=== PATIENT | male | born 1980 | race Caucasian/White ===

== ENCOUNTER 2025-01-07 10:15 | Inpatient (IN) | payer OTHER, SELFPAY ==
[2025-01-07] VITALS (7 sets, daily range): BP systolic 113–154; BP diastolic 59–94; PULSE 73–111; RESP 13–17; TEMP 36.2–36.8; O2SAT 95–99; BMI 30.6; BMI 31.4
--- NOTE | ~2025-01-07 | XR_ITS ---
EXAMINATION: XR HAND, RIGHT CLINICAL INFORMATION: r/o foreign body thumb COMPARISON: None available. TECHNIQUE: PA, lateral, and oblique views of the right hand. FINDINGS: The bones and soft tissues are normal. No fracture. Alignment is anatomic. Joint spaces are maintained. No erosions or soft tissue calcifications. XR/XR hand RT min 3V IMPRESSION: Normal right hand. No radiopaque foreign body identified. Electronically signed by: Martin Bauer MD 01/07/2025 02:07 PM EDT
--- NOTE | 2025-01-07 11:11 | PC.NURSE ---
Report received from SARAY Vasquez. Taken over care at this time.
--- NOTE | 2025-01-07 12:19 | ED.GENADULT ---
HPI - General Adult General Chief complaint: Wound/Laceration Stated complaint: SEC 21/[place],ABN LABS,SEEN T-1 PER EMS Time Seen by Provider: 01/07/25 11:12 Source: patient and EMS Mode of arrival: EMS Limitations: no limitations History of Present Illness ED Provider: Dr. Sondra Crane HPI narrative: Patient comes to the emergency room via ambulance on a Section 21 from [facility] (being treated for alcohol and cocaine dependence, seeking detox, drinks 3 pt daily, no history of withdrawal seizures or DTs) According to the patient, couple of days ago he noted that he had an infection in his right thumb. Patient denies any known injuries. Patient states that he was seen yesterday in a different ER, given IV antibiotics and sent home with clindamycin. Patient states that his thumb keeps getting more red swollen and painful. Note, patient is [facility] being treated for alcohol and cocaine dependence seeking detox. Related Data Allergies Allergy/AdvReac Type Severity Reaction Status Date / Time No Known Allergies Allergy Verified 01/07/25 10:37 Review of Systems Review of Systems: Constitutional : No Weight loss, No Fever, No Chills, No Night Sweats, No Fatigue, No Malaise ENT/Mouth : No Hearing loss, No Ear Pain, No Nasal Congestion, No Sinus Pain, No Hoarseness, No sore throat, No Rhinorrhea, No Swallowing Difficulty Eyes: No Eye Pain, No Swelling, No Redness, No Foreign Body, No Discharge, No Vision Changes Cardiovascular : No Chest Pain, No SOB, No Dyspnea on Exertion, No Orthopnea, No Edema, No Palpitations Respiratory : No Cough, No Sputum, No Wheezing, No Smoke Exposure, No Dyspnea Gastrointestinal : No Nausea, No Vomiting, No Diarrhea, No Constipation, No abdominal Pain, No Hematochezia, No Melena Genitourinary : no irregular bleeding, No Dysuria, No Urinary Frequency, No Hematuria, No Urinary Incontinence, No Urgency, No Flank Pain, No Urinary Flow Changes, No Hesitancy Musculoskeletal : No joint pain, No Myalgias, No Joint Swelling Skin : Complaining of worsening redness pain and swelling of the right thumb Neuro : No Weakness, No Numbness, No Paresthesias, No Loss of Consciousness, No Dizziness, No Headache Psych : No Anxiety/Panic, No Depression, No SI/HI/AH/VH, No Social Issues, Heme/Lymph: No Bruising, No Bleeding,No Lymphadenopathy Endocrine : No Polyuria, No Polydipsia, No Temperature Intolerance [facility] Past Medical History Medical History (Updated 01/07/25 @ 13:41 by Sondra Crane MD) Cocaine abuse Alcohol dependence Social History Social History Unable to assess alcohol history related to: Refusing to respond Smoked in Last 30 Days: No Use of substances other than those prescribed or required for medical reasons: Refusing to respond Advance Directives: No Advance Directives Information Provided: Yes Do you have a plan to hurt others: No Plan Physical Exam ED Vital Signs: Vital Signs - 24 hr 01/07/25 10:35 01/07/25 13:16 Temperature 98.2 F 97.9 F Pulse Rate 106 H 93 Respiratory Rate 16 14 Blood Pressure 119/76 150/91 H Pulse Oximetry 97 97 Oxygen Delivery Method Room Air Room Air BMI result Body Mass Index 30.6 Const Other: Appearance: Alert. Oriented X3. No acute distress. Eyes: Pupils equal, round and reactive to light. ENT: Pharynx normal. Neck: Normal inspection. Neck supple. No lymph nodes noted. No crepitus CVS: Normal heart rate and rhythm. Pulses normal. Normal S1 and S2 Respiratory: No respiratory distress. Breath sounds normal. No Wheezing. No rales Abdomen: Soft and nontender. No rigidity. No distention. Skin: Skin warm and dry. Normal skin color. Normal skin turgor. See extremities below Extremities: No lower extremity edema. No Lacerations. No Rash. On the right thumb, patient has swelling, erythema, seems to have small pus collections. Patient states that he is unable to flex the thumb due to pain, Seems like a blood blister on the palmar aspect of the thumb. Very tender to touch, see pictures below Neuro: Oriented X 3. No motor deficit. No sensory deficit. Moving all extremities. No slurred speech. CN 2 through 12 grossly intact Psych: calm, cooperative, normal affect Course Course Course Narrative: Patient being empirically started on vancomycin and Zosyn and IV fluids. All of patient's labs pending Medications Administered Generic Name Dose Route Start Last Admin Trade Name Freq PRN Reason Stop Dose Admin Vancomycin HCl 2,000 mg in 500 mls @ 250 mls/hr 01/07/25 12:15 01/07/25 13:05 Vancomycin/Ns IV 01/07/25 14:14 250 mls/hr ONCE ONE Administration Discontinued Medications Generic Name Dose Route Start Last Admin Trade Name Huang PRN Reason Stop Dose Admin Piperacillin Sod/Tazobactam 50 mls @ 100 mls/hr 01/07/25 12:15 01/07/25 13:10 Sod 3.375 gm/ Sodium Chloride IV 01/07/25 12:44 Infused ONCE ONE Infusion Sodium Chloride 1,000 mls @ 999 mls/hr 01/07/25 12:16 01/07/25 12:41 Ns IVCONT 01/07/25 13:16 999 mls/hr .Q1H1M ONE Administration Medical Decision Making Medical Decision Making [facility] Narrative: My interpretation of labs: Patient's white blood cell count 11.7, chemistry within normal limits, normal LFTs, lactic acid 0.8 Patient does not have any fever, no episodes of hypotension, normal lactic acid. Sepsis not suspected Patient know the received IV antibiotics and fluids. I discussed the patient with NISA Moya from orthopedics Differential Diagnosis Differential Diagnoses: The differential diagnosis associated with the presentation includes (Paronychia, cellulitis, tenosynovitis) Lab Data [facility] Lab Attestation statement: I reviewed the patient's lab results. 01/07/25 12:38 01/07/25 12:39 Labs: Lab Results 01/07/25 01/07/25 Range/Units 12:38 12:39 WBC 11.7 H (4.8-10.8) X10*3/uL RBC 4.79 (4.60-5.80) X10*6/uL Hgb 14.8 (14.0-18.0) g/dl Hct 41.7 L (42.0-52.0) % MCV 87.1 (80.0-98.0) fL MCH 30.9 (27.0-33.0) pg MCHC 35.5 (31.0-36.0) g/dl RDW 12.0 (11.0-16.0) % Plt Count 221 (160-400) X10*3/uL MPV 9.7 (9.4-12.4) fL Immature Gran % (Auto) 0.3 (0.0-0.4) % Neut % (Auto) 72.4 (45-73) % Lymph % (Auto) 16.4 L (20-40) % [place] % (Auto) 10.7 (2-11) % Eos % (Auto) 0.1 (0-4) % Baso % (Auto) 0.1 (0-2) % Lymph # (Auto) 1.9 (1.2-4.9) X10*3/uL [place] # (Auto) 1.3 H (0.1-1.2) X10*3/uL Eos # (Auto) 0.0 (0.0-0.4) X10*3/uL Baso # (Auto) 0.0 (0.0-0.2) X10*3/uL Abs Immat Gran (auto) 0.03 (0.00-0.03) X10*3/uL Absolute Neuts (auto) 8.5 H (2.0-8.3) x10*3/uL Absolute Nucleated RBC 0.000 (0.0-0.012) X10*3/uL Nucleated RBC % (auto) 0.0 (0.0-0.2) /100WBC PT 11.7 (10.9-12.4) SEC INR 1.0 (0.9-1.1) APTT 26.1 (26.0-36.8) SEC Sodium 134 L (135-145) mmol/L Potassium 4.1 (3.3-5.1) mmol/L Chloride 101 (96-108) mmol/L Carbon Dioxide 22 (22-29) mmol/L Anion Gap 15 (12-20) BUN 17 H (9-16) mg/dL Creatinine 1.07 (0.5-1.4) mg/dL Estim Creat Clear Calc 94.5 Estimated GFR > 60 Random Glucose 113 (60-115) mg/dL Lactic Acid 0.8 (0.5-2.0) mmol/L Calcium 9.4 (8.4-10.2) mg/dL Total Bilirubin 0.6 (0.0-1.0) mg/dL Direct Bilirubin 0.2 (0.0-0.5) mg/dL AST 32 (5-37) U/L ALT 45 H (0-40) U/L Alkaline Phosphatase 78 (39-117) U/L Total Protein 7.3 (6.5-8.0) g/dL Albumin 4.3 (3.5-5.0) g/dL Critical Care Time Critical Care Time Critical Care Time: Yes Total Critical Care Time: 60 Attestation: I have personally provided critical care time. Time includes review of lab data, radiology results, discussion with consultants, and monitoring for potential decompensation. Intervention performed as documented. Discharge Plan Discharge Clinical Impression: Cellulitis and abscess of hand Patient Disposition: Admitted As Inpatient Print Language: Korean
[2025-01-07] MEDS: Piperacillin Sodium/Tazobactam 3.375 GM in 0.9 % Sodium Chloride 50 ML IV (12:41)
[2025-01-07] MEDS: 0.9 % Sodium Chloride 1,000 ML 999 ML IVCONT (12:41)
[2025-01-07 12:45] LABS: MANUAL DIFF FLAG NO
[2025-01-07 12:48] LABS: Basophils Percent Auto 0.1 % (0-2); Eosinophils Percent Auto 0.1 % (0-4); Hematocrit 41.7 % (42.0-52.0); Hemoglobin 14.8 g/dl (14.0-18.0); Imm Gran Abs Auto 0.03 X10*3/uL (0.00-0.03); Imm Gran Pct Auto 0.3 % (0.0-0.4); Lymphocytes Absolute Auto 1.9 X10*3/uL (1.2-4.9); Lymphocytes Percent Auto 16.4 % (20-40); Mean Corpuscular HGB Conc 35.5 g/dl (31.0-36.0); Mean Corpuscular Hemoglobin 30.9 pg (27.0-33.0); Mean Corpuscular Volume 87.1 fL (80.0-98.0); Mean Platelet Volume 9.7 fL (9.4-12.4); Monocytes Absolute Auto 1.3 X10*3/uL (0.1-1.2); Monocytes Percent Auto 10.7 % (2-11); Neutrophils Absolute Auto 8.5 x10*3/uL (2.0-8.3); Neutrophils Percent Auto 72.4 % (45-73); Platelet Count 221 X10*3/uL (160-400); Red Blood Count 4.79 X10*6/uL (4.60-5.80); White Blood Count 11.7 X10*3/uL (4.8-10.8)
[2025-01-07 12:52] LABS: Prothrombin Time 11.7 SEC (10.9-12.4)
[2025-01-07 12:55] LABS: Partial Thromboplastin Time 26.1 SEC (26.0-36.8)
--- NOTE | 2025-01-07 13:01 | PC.NURSE ---
Informed MD about pt. requesting pain medication. No new orders at this time.
[2025-01-07 13:05] LABS: Lactic Acid 0.8 mmol/L (0.5-2.0)
[2025-01-07] MEDS: vancomycin/NS 2,000 MG/500 ML PLAST..BAG 250 MG IV (13:05)
[2025-01-07 13:06] LABS: Alanine Aminotransferase 45 U/L (0-40); Albumin Level 4.3 g/dL (3.5-5.0); Alkaline Phosphatase 78 U/L (39-117); Anion Gap 15 (12-20); Aspartate Amino Transferase 32 U/L (5-37); Bilirubin Direct 0.2 mg/dL (0.0-0.5); Bilirubin Total 0.6 mg/dL (0.0-1.0); Blood Urea Nitrogen 17 mg/dL (9-16); Calcium 9.4 mg/dL (8.4-10.2); Carbon Dioxide 22 mmol/L (22-29); Chloride 101 mmol/L (96-108); Creatinine Clr Calc Pharmacy 94.5; Estimated Glomerular Filt Rate > 60; Glucose Random 113 mg/dL (60-115); Potassium 4.1 mmol/L (3.3-5.1); Sodium 134 mmol/L (135-145); Total Protein 7.3 g/dL (6.5-8.0)
--- NOTE | 2025-01-07 13:21 | PM.CNOR ---
History of Present Illness HPI Consult date: 01/07/25 Chief complaint: SEC 21/[place],ABN LABS,SEEN T-1 PER EMS Narrative: Mr. Molina is a 44-year-old right-hand dominant male who presents to the office today for evaluation of a right thumb infection. She was transported on a section 21 from [facility]. He reports that the infection began to develop over the past 2 days. He does admit to smoking crack cocaine last on Sunday. He is at [facility] for alcohol and cocaine dependence seeking detox. He reports that he was seen yesterday by different ER and given IV antibiotics and sent home with clindamycin but reports that the pain has been increasing and also has noticed an increase in redness. Review of Systems Review of Systems: Yes all other systems are reviewed and are negative [facility] Past Medical History Medical History (Updated 01/07/25 @ 13:41 by Sondra Crane MD) Cocaine abuse Alcohol dependence Social History Social History Unable to assess alcohol history related to: Refusing to respond Smoked in Last 30 Days: No Use of substances other than those prescribed or required for medical reasons: Refusing to respond Advance Directives: No Advance Directives Information Provided: Yes Do you have a plan to hurt others: No Plan Meds Allergies Allergy/AdvReac Type Severity Reaction Status Date / Time No Known Allergies Allergy Verified 01/07/25 10:37 Active Medications: Current Medications Vancomycin HCl (Vancomycin/Ns) 2,000 mg in 500 mls @ 250 mls/hr IV ONCE ONE Stop: 01/07/25 14:14 Last Admin: 01/07/25 13:05 Dose: 250 mls/hr Physical Exam Vital Signs: Vital Signs: Last Vital Signs Temp 97.9 F 01/07/25 13:16 Pulse 93 01/07/25 13:16 Resp 14 01/07/25 13:16 BP 150/91 H 01/07/25 13:16 Pulse Ox 97 01/07/25 13:16 O2 Del Method Room Air 01/07/25 13:16 BMI result Body Mass Index 30.6 Const: General: cooperative, healthy appearing and no acute distress Resp: Effort & Inspection: normal respiratory effort and able to speak in complete sentences Extrem: Other: Right thumb phelon. Able to flex and extend at the IP joint. Tenderness to palpation over the areas of abscess. No evidence of flexor tenosynovitis. NVI. Results Labs 01/07/25 12:38 01/07/25 12:39 Labs: Abnormal lab results 01/07/25 01/07/25 Range/Units 12:38 12:39 WBC 11.7 H (4.8-10.8) X10*3/uL Hct 41.7 L (42.0-52.0) % Lymph % (Auto) 16.4 L (20-40) % [place] # (Auto) 1.3 H (0.1-1.2) X10*3/uL Absolute Neuts (auto) 8.5 H (2.0-8.3) x10*3/uL Sodium 134 L (135-145) mmol/L BUN 17 H (9-16) mg/dL ALT 45 H (0-40) U/L H & H 01/07/25 Range/Units 12:38 Hgb 14.8 (14.0-18.0) g/dl Hct 41.7 L (42.0-52.0) % Coagulation 01/07/25 Range/Units 12:39 INR 1.0 (0.9-1.1) All other labs normal. Assessment and Plan (1) Cellulitis and abscess of hand: Status: Acute Plan I discussed the case with Dr. Vargas and explained the extent of the injury to the patient and options available which include surgical intervention. I explained the procedure in detail along with the length of recovery and rehab course. I explained the risk, benefits and alternatives. Risk including, but not limited to infection, blood clots, bleeding, non union or malunion and nerve/tissue damage to surrounding areas. I answered all their questions and with their understanding they have consented to move forward with irrigation and debridement of the right thumb. The patient will be NPO after midnight. Recommend warm salt water soaks of the right thumb. Procedures Date of Service Date of Service: 01/07/25
--- OUTSIDE RECORDS SUMMARY | 2025-01-07 13:55 | XMS_ITS | Encounter Summary ---
Author Organization [facility] Address [address] [place] [address] Care Team Providers Care [employer] Name Role Phone Kimberly Tovar CORBIN Primary Care Provider [phone] Reason for Visit * Reason Comments Medication Management Encounter Details Date Type Department Care Team ([facility] st Contact Info) Description 11/17/2019 / Visits [facility] [address] [place] [phone] Catina Steel APRN [address] [place] [address] Social History Tobacco Use Types Packs/Day Years Used Date Smoking Tobacco: Never Smokeless Tobacco: Never Alcohol Use Standard Drinks/Week Comments Yes 0 (1 standard drink = 0.6 oz pur e alcohol) socially Social Connections Answer Date Recorded Social Connections and Isolation 0 05/11/2019 Financial Resource Strain Answer Date R ecorded Financial Resource Strain 0 2018 Stress Answer Date Recorded Stress 0 05/11/2019 Physical Activity Answer Date Recorded Physical Activity 0 05/11/2019 Food Insecurity Answer Date Recorded Food 0 05/11/2019 Transportation Needs Answer Date Record ed Transportation 0 05/11/2019 Housing Stability Answer Date Recorded Housing 0 05/11/2019 Safety and Environment Answer Date Abdoul rded Safety 0 05/11/2019 Utilities Answer Date Recorded Utilities 0 05/11/2019 Employment Answer Date Recorded Employment 0 05/11/2019 Sex and Gender Information Value Date Recorded Sex Assigned at Male 09/23/2018 7:38 AM PST Legal Sex Male 8:29 AM PDT Gender Identity Male 09/23/2018 7:38 AM PST Sexual Orientation Straight 09/23/2018 7: 38 AM PST Occupation Industry Job Start Date Job End Date unemployed Not on file Not on file Not on file documented as of this encounter Plan of Treatment Not on file documented as of this encounter Visit Diagnoses Not on filedocumented in this encounter Additional Health Concerns Infection Onset Date Last Indicated Resolved Time COVID-19 (rule-out) Comment:Added automatically based on patient reported travel screening. 06/14/2020 06/14/202007/05 7:09 PM PDT Assessment Noted Time PHQ-9 Depression Total Score: 22 11/06/ 020 7:00 AM PST documented as of this encounter Care Teams [employer] Relationship Specialty Start Date End Date Kimberly Tovar FNP [facility] [place] [address] PCP - General Internal Medicine 05/25/20 documented as of this encounter
--- OUTSIDE RECORDS SUMMARY | 2025-01-07 13:55 | XMS_ITS | Clinical Summary ---
Author Organization [facility] Address [address] [place] [address] Care Team Providers Care Core Measures Abstractor Name Role Phone Kimberly Tovar [facility] Primary Care Provider [phone] Source Comments PLEASE NOTE, if this patient is a minor, it may be UNLAWFUL to discuss sensitive information that is contained in these records (such as FAMILY PLANNING, MENTAL HEALTH or SUBSTANCE ABUSE) with the minor patient's parent or other person without the patient's specific authorization.[facility] Allergies No known active allergies Medications sennosides (SENNA) 8.6 mg tablet TAKE 2 TABLETS BY MOUTH NIGHTLY AT BEDTIME NEEDED FOR CONSTIPATION Strength: 8.6 mg 60 Tablet 1 3 Active QUEtiapine (SEROQUEL) 300 mg tablet TAKE 1 TABLET BY MOUTH EVERYDAY AT BEDTIME 90 Tablet 1 3 Active Active Problems Problem Noted Date Diagnosed Date Cocaine abuse ([facility]) 09/28/2022 Cannabis abuse 09/28/2022 Prediabetes 11/22/2020 Hepatic steatosis 01/01/2020 Overview (01/01/2020): 12/17/2019 Liver US Bipolar 1 disorder ([facility]) 11/07/2019 Hepatitis C antibody test positive 11/07/2019 Moderate episode of recurren t major depressive disorder ([facility]) 07/12/2019 HISTORY OF SUICIDAL IDEATION 01/11/2019 Overview (01/20/2019): 01/08/19 [facility] Suicidal ideation --plan take all his medication: crisis called in [facility] ER suicidal--not meeting inpatient req--sent [place] respite Hyperglyceridemia 01/20/2016 PTSD (post-traumatic stress disorder) 01/20/2016 Anxiety and depression 01/20/2016 Overview (09/23/2018): Per Dr Bustos 03/16 --This is Dr. Bustos writing courtesy of [facility]. ? I reviewed the records. ?? Looks like patient reported that Wellbutrin XL 300 mg/d and Seroquel were helpful in the past, and Aleida Gordon just increased the Wellbutrin to that dose in the past week. ?? I suggest giving the increase 4-5 weeks to take effect. ?? If no improvement after that time, suggest augmenting Wellbutrin with an SSRI such as Citalopram or Lexapro. ?? Would continue Seroquel at current dose. 09/23/2018 Pt stated he stopped taking both Seroquel and Wellbutrin H/O cocaine abuse ([facility]) 01/20/2016 Immunizations Immunization Administration Dates Next Due PPD 09/23/2018 Family History Relation Name Status Comments Brother 1 brother Father Alive Mother Alive Sister 1 sister Social History Tobacco Use Types Packs/Day Years Used Date Smoking Tobacco: Never Smokeless Tobacco: Never Tobacco Cessation:Counseling Given: Not Answered Alcohol Use Standard Drinks/Week Comments Yes 0 (1 standard drink = 0.6 oz pur e alcohol) socially Social Connections Answer Date Recorded Connectedness 0 06/05/2024 Financial Resource Strain Answer Date R ecorded Financial Resource Strain 0 2018 Stress Answer Date Recorded Stress 0 05/11/2019 Physical Activity Answer Date Recorded Physical Activity 0 05/11/2019 Food Insecurity Answer Date Recorded Food 0 06/12/2024 Transportation Needs Answer Date Record ed Transportation 0 05/11/2019 Housing Stability Answer Date Recorded Housing 0 05/11/2019 Safety and Environment Answer Date Abdoul rded Safety 0 05/11/2019 Utilities Answer Date Recorded Utilities 0 05/11/2019 Employment Answer Date Recorded Stress 0 06/05/2024 Sex and Gender Information Value Date Recorded Sex Assigned at Male 09/23/2018 7:38 AM PST Legal Sex Male 8:29 AM PDT Gender Identity Male 09/23/2018 7:38 AM PST Sexual Orientation Straight 09/23/2018 7: 38 AM PST Occupation Industry Job Start Date Job End Date unemployed Not on file Not on file Not on file Last Filed Vital Signs Vital Sign Reading Time Taken Comments Blood Pressure 140/82 04/24/2023 2:19 PM EDT Pulse 114 04/24/2023 2:19 PM EDT Temperature 37.2 ??C (98.9 ??F) 04/24/2023 2:19 PM ED T Respiratory Rate 16 04/24/2023 2:19 PM EDT Oxygen Saturation 95% 04/24/2023 2:19 PM EDT Inhaled Oxygen Concentration - - Weight 102.5 kg (226 lb) 04/24/2023 2:19 PM EDT Height 172.7 cm (5' 8 ) 04/24/2023 2:19 PM EDT Body Mass Index 34.36 04/24/2023 2:19 PM EDT Plan of Treatment Health Maintenance Due Date Last Done Comments Anxiety Screening 1980 Tobacco Screening 1980 Depression Monitoring 07/25/2023 04/24/2023 , 12/19/2021, 11/15/2020, Additional history exists CT Colonography 11/22/2023 Colonoscopy 11/22/2023 Colorectal Cancer Screening 11/22/2023 FIT/gFOBT 11/22/2023 Fecal DNA 11/22/2023 Flexible Sigmoidoscopy 11/22/2023 Hypertension Screening (#1) 04/23/2024 Annual Preventive Care Visit 04/24/2024 04/24/2023, 11/15/2020 Diabetes Screening 04/24/2024 04/24/2023, 0 04/24/2023, 11/22/2020, Additional history exists Lipid Screening 04/24/2024 04/24/2023, 09/17, 11/10/2019, Additional history exists Syphilis Screening 04/24/2024 04/24/2023, 11/25/2020 [id number] ( season) 2024 023 Alcohol and Drug Screen 09/17/2024 04/24/20, 12/19/2021, 11/15/2020, Additional history exists Imm-DTaP/Tdap/Td Discontinued 12/15/2011 HIV Screening Discontinued 04/24/2023, 11/25/2020 Hepatitis C Screening Completed 04/24/2023 , 04/24/2023, 11/10/2019, Additional history exists Imm-Influenza Discontinued Procedures Procedure Name Priority Date/Time Associated Diagnosis Comments HIV 1/2 AG & AB W/RFLX (4TH GEN) Routine 04/24/2023 2:44 PM EDT Concern about STD in male without diagnosis RPR W/RFLX TITER+FTA+CONF Routine 04/24/2023 2:44 PM EDT Concern about STD in male without diagnosis HEPATITIS C AB W/RFLX HCV RNA, QT, RT PCR Routine 04/24/2023 2:44 PM EDT Concern about STD in male without diagnosis COMPREHENSIVE METABOLIC PANEL Routine 04/24/2023 2:44 PM EDT Routine general medical examination at a health care facility LIPIDS W RFLX TO DIRECT LDL Routine 04/24/2023 2:44 PM EDT Routine general medical examination at a health care facility from Last 3 Months or Most Recently Relevant to Health Maintenance Results * (ABNORMAL) HEPATITIS C AB W/RFLX HCV RNA, QT, RT PCR (04/24/2023 2:44 PM EDT) HEPATITIS C ANTIBODY REACTIVE( A) NON-REACT PUJA [facility] Comment: Based on this result, the sample will be tested for HCV RNA by a Nucleic Acid Amplification Test (NAAT) to determine if the patient has a current active infection. Blood Blood / Unknown 04/24/2023 2 :44 PM EDT 04/24/2023 2:45 PM EDT Narrative [facility] - 04/27/2023 10:46 PM EDT FASTING:NO More Fink NP LAB - BLOOD DRAW Edited Result - Final [facility] [address] [address], [facility] [address] [address] * HIV 1/2 AG & AB W/RFLX (4TH GEN) (04/24/2023 2:44 PM EDT) HIV AG/AB, 4TH GEN NON-REAC TIVE NON-REAC TIVE [facility] Comment: HIV-1 antigen and HIV-1/HIV-2 antibodies were not detected. There is no laboratory evidence of HIV infection. PLEASE NOTE: This information has been disclosed to you from records whose confidentiality may be protected by state law. ??If your state requires such protection, then the state law prohibits you from making any further disclosure of the information without the specific written consent of the person to whom it pertains, or as otherwise permitted by law. A general authorization for the release of medical or other information is NOT sufficient for this purpose. ?? For additional information please refer to http://education.[employer] R&D/faq/CEA931 (This link is being provided for informational/ educational purposes only.) The performance of this assay has not been clinically validated in patients less than 2 years old. Blood Blood / Unknown 04/24/2023 2 :44 PM EDT 04/24/2023 2:45 PM EDT Narrative [facility] - 04/27/2023 10:46 PM EDT FASTING:NO us More Fink NP LAB - BLOOD DRAW Final Result [facility] [address] [address], [facility] [address] [address] * (ABNORMAL) LIPIDS W RFLX TO DIRECT LDL (04/24/2023 2:44 PM EDT) Pathologist [facility] CHOLESTEROL, TOTAL 219(H) <200 mg/dL [facility] HDL CHOLESTEROL 45 > OR = 40 mg/dL [facility] TRIGLYCERIDES 191(H) <150 mg/dL [facility] LDL-CHOLESTEROL 141(H) 99 mg/dL (calc) [facility] Comment: Reference range: <100 Desirable range <100 mg/dL for primary prevention; ?? <70 mg/dL for patients with CHD or diabetic patients with > or = 2 CHD risk factors. LDL-C is now calculated using the Esteban calculation, which is a validated novel method providing better accuracy than the Friedewald equation in the estimation of LDL-C. Obie GAMBOA et al. JUDI. 2013;310(19): 5413-5062 (http://education.N4G.com/faq/SMD984) CHOL/HDLC RATIO 4.9 <5.0 (calc) [facility] NON-HDL CHOLESTEROL 174(H) <130 mg/dL (calc) [facility] Comment: For patients with diabetes plus 1 major ASCVD risk factor, treating to a non-HDL-C goal of <100 mg/dL (LDL-C of <70 mg/dL) is considered a therapeutic option. Blood Blood / Unknown 04/24/2023 2 :44 PM EDT 04/24/2023 2:45 PM EDT Narrative [facility] - 04/27/2023 10:46 PM EDT FASTING:NO us More Fink NP LAB - BLOOD DRAW Final Result Performing Organization Address [place]/ZIP Co de Phone Number [facility] [address] [address], [facility] [address] [address] * RPR W/RFLX TITER+FTA+CONF (04/24/2023 2:44 PM EDT) RPR (DX) W/REFL TITER AND CONFIRMATORY TESTING NON-REACT PUJA NON-REACT PUJA [facility] Blood Blood / Unknown 04/24/2023 2 :44 PM EDT 04/24/2023 2:45 PM EDT Narrative [facility] - 04/27/2023 10:46 PM EDT FASTING:NO us More Fink NP LAB - BLOOD DRAW Edited Result - Final [facility] Organization Address [place]/ZIP Co de Phone Number [facility] [address] [address], [facility] [address] [address] * (ABNORMAL) COMPREHENSIVE METABOLIC PANEL (04/24/2023 2:44 PM EDT) GLUCOSE 98 65 - 139 mg/dL [facility] Comment: ?Non-fasting reference interval UREA NITROGEN (BUN) 15 7 - 25 mg/dL [facility] CREATININE (blood) 0.94 0.60 - 1.29 mg/dL [facility] EGFR 103 > OR = 60 mL/min/1. 73m2 [facility] BUN/CREATININE RATIO SEE NOTE: [facility] Comment: ?? Not Reported: BUN and Creatinine are within ?? reference range. ? SODIUM 141 135 - 146 mmol/L [facility] POTASSIUM 4.4 3.5 - 5.3 mmol/L [facility] CHLORIDE 103 98 - 110 mmol/L [facility] CARBON DIOXIDE 30 20 - 32 mmol/L [facility] CALCIUM 9.6 8.6 - 10.3 mg/dL [facility] PROTEIN, TOTAL 7.1 6.1 - 8.1 g/dL [facility] ALBUMIN 4.7 3.6 - 5.1 g/dL [facility] GLOBULIN 2.4 1.9 - 3.7 g/dL (calc) [facility] ALBUMIN/GLOBULI N RATIO 2.0 1.0 - 2.5 (calc) [facility] BILIRUBIN, TOTAL 0.4 0.2 - 1.2 mg/dL [facility] ALKALINE PHOSPHATASE 96 36 - 130 U/L [facility] AST 27 10 - 40 U/L [facility] ALT 53(H) 9 - 46 U/L [facility] Blood Blood / Unknown 04/24/2023 2 :44 PM EDT 04/24/2023 2:45 PM EDT Narrative [facility] - 04/27/2023 10:46 PM EDT FASTING:NO More Fink NP LAB - BLOOD DRAW Edited Result - Final [facility] [address] [address], [facility] [address] [address] from Last 3 Months or Most Recently Relevant to Health Maintenance Insurance [facility] [address] [employer] Care Teams Core Measures Abstractor Relationship Specialty Start Date End Date Kimberly Tovar FNP [address] [place] [address] PCP - General Internal Medicine 05/25/20
--- NOTE | 2025-01-07 15:41 | PHA.MEDREC ---
Pharmacy Consult ? Medication Reconciliation Pharmacy has completed the medication reconciliation. Utilized list from facility.
--- NOTE | 2025-01-07 16:11 | PM.IMHP ---
History of Present Illness Date of Service: 01/07/25 Attending physician on admission: Savage Ackerman Chief Complaint: thumb infection Patient with history of uml-nyfxici-bfxerktnj type 2 diabetes, chronic low back pain, depression comes to the emergency room via ambulance on a Section 21 from [facility] (being treated for alcohol and cocaine dependence, seeking detox, drinks 3 pt daily, no history of withdrawal seizures or DTs) According to the patient, couple of days ago he noted that he had an infection in his right thumb. Patient denies any known injuries. Per ED report, he did state that he had been in an ER yesterday and was prescribed clindamycin. However on my questioning, he denies this. He denies any fevers or chills. He denies any history of IV drug abuse. He dates state he popped and abscess at the base of his right thumb earlier today. He has been at [facility] due to suicidal ideation which he does endorse is still present. Denies any plan. In the ED, initially tachycardic but otherwise no fevers or hypotension. There is a mild leukocytosis of 11.7. X-ray of the right hand without any acute osseous abnormality or foreign body identified. In the ED, he has received IV vancomycin and Zosyn. Review of Systems Review of Systems: Yes all other systems are reviewed and are negative [facility] Medical History Cocaine abuse Alcohol dependence Social History Unable to assess alcohol history related to: Refusing to respond Smoked in Last 30 Days: No Use of substances other than those prescribed or required for medical reasons: Refusing to respond Advance Directives: No Advance Directives Information Provided: Yes Do you have a plan to hurt others: No Plan Meds Allergies Allergy/AdvReac Type Severity Reaction Status Date / Time No Known Allergies Allergy Verified 01/07/25 10:37 Active Medications: Current Medications Acetaminophen (Acetaminophen 325 Mg Tablet) 650 mg PO Q6H PRN PRN Reason: Pain, Mild 1-3,fever,headache Calcium Carbonate (Calcium Carbonate 750 Mg Tab.Chew) 750 mg PO Q4H PRN PRN Reason: Heartburn Dextrose (Dextrose 50 % 25 Gm/50 Ml Syringe) 25 gm IVPUSH Q15M PRN; Protocol PRN Reason: per Hypoglycemia Standing Ord. Enoxaparin Sodium (Enoxaparin Sodium 40 Mg/0.4 Ml Syringe) 40 mg SUBCUT Q24H [facility] Glucose (Glucose Gel 15 Gm Gel..Gram.) 15 gm PO Q15M PRN; Protocol PRN Reason: per Hypoglycemia Standing Ord. Insulin Human Lispro (Insulin Lispro 100 Unit/Ml 3 Ml Vial) 0 unit SUBCUT QIDACHS CHERELLE; Protocol Magnesium Hydroxide (Milk Of Magnesia 30 Ml Oral.Susp) 30 ml PO DAILY PRN PRN Reason: Constipation Melatonin (Melatonin 3 Mg Tablet) 6 mg PO BEDTIME PRN PRN Reason: Insomnia Pharmacy Consult (Consult Rx Vancomycin Dosing) 1 each MISCELLANE DAILY PRN PRN Reason: Consult order Sodium Chloride (0.9 % Sodium Chloride Flush 3 Ml Syringe) 3 ml IVFLUSH QSHIFT [facility] Home Medications ?Medication ?Instructions ?Recorded ?Confirmed ?Last Taken ?Type acetaminophen 325 mg tablet 650 mg PO Q4H PRN Pain 01/07/25 01/07/25 Unknown History aluminum-mag hydroxide-simethicone 30 ml PO QID PRN gi upset 01/07/25 01/07/25 Unknown History 200 mg-200 mg-20 mg/5 mL oral susp feuwmgpbnz-ibfcowi-nazadbdtqcewj 1 cassandra mucous membrane Q2H PRN Sore 01/07/25 01/07/25 Unknown History 10 mg-2.5 mg lozenges Throat bupropion HCl 300 mg 24 hr tablet, 300 mg PO DAILY 01/07/25 01/07/25 Unknown History extended release calcium carbonate 500 mg PO Q4H PRN Heartburn 01/07/25 01/07/25 Unknown History docusate sodium 100 mg capsule 100 mg PO BID 01/07/25 01/07/25 Unknown History folic acid 1 mg tablet 1 mg PO DAILY 01/07/25 01/07/25 Unknown History guaifenesin 100 mg/5 mL oral liquid 200 mg PO Q4H PRN Cough 01/07/25 01/07/25 Unknown History guaifenesin 600 mg tablet, 1,200 mg PO BID 01/07/25 01/07/25 Unknown History extended release 12 hr hydroxyzine pamoate 25 mg capsule 25 mg PO Q6H PRN Anxiety 01/07/25 01/07/25 Unknown History ibuprofen 400 mg tablet 400 mg PO Q8H PRN body-ache, 01/07/25 01/07/25 Unknown History toothache loperamide 2 mg capsule 2 mg PO Q4H PRN stool 01/07/25 01/07/25 Unknown History magnesium hydroxide 400 mg/5 mL 30 ml PO DAILY PRN Constipation 01/07/25 01/07/25 Unknown History oral suspension (Milk of Magnesia) magnesium oxide 400 mg PO TID 01/07/25 01/07/25 Unknown History melatonin 3 mg tablet 6 mg PO BEDTIME PRN Insomnia 01/07/25 01/07/25 Unknown History metformin 500 mg tablet 500 mg PO BID 01/07/25 01/07/25 Unknown History methocarbamol 750 mg tablet 750 mg PO Q8H PRN MYALGIAS 01/07/25 01/07/25 Unknown History multivitamin 1 tab PO DAILY 01/07/25 01/07/25 Unknown History naloxone 4 mg/actuation nasal spray 4 mg intranasal Q2M PRN S/SX OF 01/07/25 01/07/25 Unknown History OPIATE OVERDOSE, MAX 5 DOSES. CALL nicotine (polacrilex) 2 mg gum 2 mg buccal Q2H PRN Nicotine 01/07/25 01/07/25 Unknown History Cravings nicotine 21 mg/24 hr daily 1 patch transdermal DAILY PRN 01/07/25 01/07/25 Unknown History transdermal patch NICTOCINE WITHDRAWAL ondansetron 4 mg disintegrating 4 mg PO Q6H PRN Nausea And Vomiting 01/07/25 01/07/25 Unknown History tablet prazosin 2 mg capsule 2 mg PO BEDTIME 01/07/25 01/07/25 Unknown History quetiapine 300 mg tablet 300 mg PO BEDTIME 01/07/25 01/07/25 Unknown History risperidone 4 mg tablet 4 mg PO BEDTIME 01/07/25 01/07/25 Unknown History sennosides 8.6 mg tablet (senna) 8.6 mg PO BID PRN second line 01/07/25 01/07/25 Unknown History constipation thiamine HCl (vitamin B1) 100 mg 100 mg PO DAILY 01/07/25 01/07/25 Unknown History tablet topiramate 25 mg tablet 25 mg PO DAILY 01/07/25 01/07/25 Unknown History trazodone 50 mg tablet 50 mg PO BEDTIME PRN Insomnia 01/07/25 01/07/25 Unknown History Physical Exam Vital Signs and Narrative: Vital Signs: Last Vital Signs Temp 97.6 F 01/07/25 14:56 Pulse 95 01/07/25 14:56 Resp 13 01/07/25 14:56 BP 149/94 H 01/07/25 14:56 Pulse Ox 99 01/07/25 14:56 O2 Del Method Room Air 01/07/25 14:56 BMI result Body Mass Index 30.6 Constitutional - Awake and Alert, No apparent distress Eyes - PERRLA, EOMI Cardiovascular - S1S2, RRR, No edema Respiratory - Normal lung expansion, Normal respiratory effort, No respiratory distress, CTA bilaterally Extremities - no calf tenderness bilaterally, no swelling Skin - Warm/Dry. Erythema and warmth over the distal phalanx and fluctuance noted at the base of the right thumb Neurological - Alert & oriented x3 Psychological - Appropriate affect Results Labs 01/07/25 12:38 01/07/25 12:39 Labs: Laboratory Results - last 24 hr 01/07/25 01/07/25 12:38 12:39 MCV 87.1 MCH 30.9 MCHC 35.5 RDW 12.0 Plt Count 221 MPV 9.7 Immature Gran % (Auto) 0.3 Neut % (Auto) 72.4 Lymph % (Auto) 16.4 L Major % (Auto) 10.7 Eos % (Auto) 0.1 Baso % (Auto) 0.1 Lymph # (Auto) 1.9 Major # (Auto) 1.3 H Eos # (Auto) 0.0 Baso # (Auto) 0.0 Abs Immat Gran (auto) 0.03 Absolute Neuts (auto) 8.5 H Absolute Nucleated RBC 0.000 Nucleated RBC % (auto) 0.0 PT 11.7 INR 1.0 APTT 26.1 Anion Gap 15 Estim Creat Clear Calc 94.5 Estimated GFR > 60 Random Glucose 113 Lactic Acid 0.8 Calcium 9.4 Total Bilirubin 0.6 Direct Bilirubin 0.2 AST 32 ALT 45 H Alkaline Phosphatase 78 Total Protein 7.3 Albumin 4.3 Imaging Radiologist's Impressions: Impressions Hand X-Ray 01/07/25 13:39 IMPRESSION: Normal right hand. No radiopaque foreign body identified. Electronically signed by: Martin Bauer MD 01/07/2025 02:07 PM EDT RP Assessment and Plan (1) Cellulitis and abscess of hand: Status: Acute Plan Patient with history of qxj-ruzfgsw-fpdeqisdm type 2 diabetes, chronic low back pain, depression, chronic low back pain, crack cocaine abuse, and alcohol abuse admitted for further management of acute cellulitis and abscess of the right thumb Acute cellulitis and abscess right thumb X-ray negative for any acute osseous abnormality or foreign body Leukocytosis of 11.7. Tachycardic but no other SIRS criteria. No sepsis/severe sepsis IV vancomycin Orthopedic consult Pain management p.r.n. Follow CBC, cultures Crack cocaine abuse Return to [facility] for further management Alcohol use disorder Outside of window for withdrawal-admitted from [facility], last use prior to admission Continue p.o. thiamine and folic acid Discharge back to [facility] Major depressive disorder with SI Continue home medications Sitter consult Srq-mgxllxx-fsifwjlrq type 2 diabetes POC glucose, diabetic diet Sliding scale insulin. Hold metformin Chronic low back pain Continue Robaxin DVT prophylaxis-Lovenox Full code Patient requires inpatient stay at least 2 midnights for management of acute cellulitis and abscess of the right thumb which is his dominant hand and has a history of drug use requiring IV antibiotics and expert consultation Quality Stroke Does the patient have a stroke diagnosis?: No VTE Prior VTE?: No VTE Risk Level:: Medical - moderate - high VTE Device Contraindication: Treatment Not Indicated VTE Drug Contraindication: N/A - Med Ordered
--- NOTE | 2025-01-07 16:44 | PHA.PROG ---
Admission Date/Time: January 07, 2025 15:52 Indication: skin Weight in k.172 kg Adjusted body weight in Kg: Isabella body weight in Kg: Obesity Dosing Indication % IBW: Serum Creatinine - Last 168 Hours 01/07/25 12:39 Creatinine 1.07 Estimated CrCl and GFR - Last 168 Hours 01/07/25 12:39 Estim Creat Clear Calc 94.5 Estimated GFR > 60 Vancomycin Loading Dose: 2000mg x 1 Current Vancomycin Dosing Regimen: 1000mg Q12H Vancomycin Monitoring using AUC goal of 400 - 600 range with trough as surrogate marker: 468 mg/L Date and Time for next Vancomycin Level to be drawn: 01/08 @2100 Pharmacist Comments on Vancomycin Plan: Predicted trough of 14.9 mg/L. Will continue to monitor and adjust as necessary Vancomycin dosing will take advantage of [employer] as a clinical decision support tool that uses Bayesian modeling to calculate individual patient's pharmacokinetic parameters and forecast the patient's drug concentration time course with the target goal AUC 24 range of 400 - 600 mg/L/hr.
[2025-01-07] MEDS: 0.9 % Sodium Chloride Flush 3 ML SYRINGE IVFLUSH ×2 (16:48→20:57)
[2025-01-07] MEDS: Morphine Sulfate 2 MG/ML CARTRIDGE IVPUSH ×2 (17:25→21:31)
[2025-01-07] MEDS: Enoxaparin Sodium 40 MG/0.4 ML SYRINGE SUBCUT (17:25)
[2025-01-07] MEDS: Acetaminophen 325 MG TABLET 650 MG PO (18:10)
[2025-01-07 18:24] LABS: Glucose, Whole Blood 107 mg/dL (60-115)
--- NOTE | 2025-01-07 18:36 | PC.NURSE ---
Clau Tan for update vital order. She is okay for vs q8h.
[2025-01-07] MEDS: Prazosin HCL 1 MG CAPSULE 2 MG PO (20:57)
[2025-01-07] MEDS: Docusate Sodium 100 MG CAPSULE PO (20:57)
[2025-01-07] MEDS: QUEtiapine Fumarate 300 MG TABLET PO (20:57)
[2025-01-07] MEDS: Magnesium Oxide 400 MG TABLET PO (20:57)
[2025-01-07] MEDS: guaiFENesin LA 600 MG TAB.ER.12H 1200 MG PO (20:57)
[2025-01-07] MEDS: risperiDONE 2 MG TABLET 4 MG PO (20:57)
[2025-01-07 21:05] LABS: Glucose, Whole Blood 175 mg/dL (60-115)
[2025-01-07] MEDS: Insulin Lispro 100 UNIT/ML 3 ML VIAL SUBCUT (21:30)
[2025-01-07] MEDS: vancomycin HCL 1,000 MG in 0.9 % Sodium Chloride 250 ML 270 MG IV (23:10)
[2025-01-08 03:40] VITALS: BP 105/60; PULSE 102; RESP 16; TEMP 36.2; O2SAT 96
[2025-01-08 06:56] LABS: MANUAL DIFF FLAG NO
[2025-01-08 07:00] LABS: Basophils Percent Auto 0.4 % (0-2); Eosinophils Percent Auto 0.4 % (0-4); Hematocrit 38.2 % (42.0-52.0); Hemoglobin 13.4 g/dl (14.0-18.0); Imm Gran Abs Auto 0.01 X10*3/uL (0.00-0.03); Imm Gran Pct Auto 0.1 % (0.0-0.4); Lymphocytes Absolute Auto 2.5 X10*3/uL (1.2-4.9); Lymphocytes Percent Auto 34.2 % (20-40); Mean Corpuscular HGB Conc 35.1 g/dl (31.0-36.0); Mean Corpuscular Hemoglobin 30.7 pg (27.0-33.0); Mean Corpuscular Volume 87.4 fL (80.0-98.0); Mean Platelet Volume 9.6 fL (9.4-12.4); Monocytes Absolute Auto 0.7 X10*3/uL (0.1-1.2); Monocytes Percent Auto 9.9 % (2-11); Neutrophils Absolute Auto 4.1 x10*3/uL (2.0-8.3); Platelet Count 199 X10*3/uL (160-400); Red Blood Count 4.37 X10*6/uL (4.60-5.80); White Blood Count 7.4 X10*3/uL (4.8-10.8)
[2025-01-08 07:21] LABS: Glucose, Whole Blood 132 mg/dL (60-115)
[2025-01-08 07:26] LABS: Blood Urea Nitrogen 12 mg/dL (9-16); Calcium 8.7 mg/dL (8.4-10.2); Creatinine Clr Calc Pharmacy 119.2; Estimated Glomerular Filt Rate > 60; Glucose Random 121 mg/dL (60-115)
[2025-01-08 07:33] LABS: Anion Gap 12 (12-20); Carbon Dioxide 25 mmol/L (22-29); Chloride 106 mmol/L (96-108); Potassium 3.2 mmol/L (3.3-5.1); Sodium 140 mmol/L (135-145)
[2025-01-08 07:57] VITALS: BP 119/67; PULSE 98; RESP 18; TEMP 37.3; O2SAT 97
--- NOTE | 2025-01-08 10:22 | MHC.CM.PN ---
CM met with Patient at bedside. Patient is here from [facility], on a Section 12. Patient was at [facility] for Detex (ETOH & Cocaine) and he will benefit from a Recovery Team Consult to assist with disposition. Prior to [facility], Patient states that he was homeless and staying at a [facility] ([facility]). CM has initiated and will follow for dc planning. Patient has no PCP,does not request the PCP pamphlet and is not interested in completing a HCP. Patient will have a debridement of his (R)Thumb today.
[2025-01-08 11:35] LABS: Glucose, Whole Blood 125 mg/dL (60-115)
[2025-01-08] MEDS: vancomycin HCL 1,250 MG in 0.9 % Sodium Chloride 250 ML 166.67 MG IV (11:52)
[2025-01-08] MEDS: 0.9 % Sodium Chloride Flush 3 ML SYRINGE IVFLUSH ×3 (11:52→20:14)
[2025-01-08] MEDS: Morphine Sulfate 2 MG/ML CARTRIDGE IVPUSH ×2 (11:56→19:07)
--- NOTE | 2025-01-08 12:18 | HO.PM.IMPN ---
Subjective Subjective Date of Service: 01/08/25 Interval History: Seen and examined this morning Follow-up for cellulitis/abscess of thumb sleepy but easily arousable to verbal stimuli reporting pain and pressure in right thumb Review of Systems Review of Systems: Yes all other systems are reviewed and are negative Constitutional Constitutional: Denies chills and Denies fever(s) Cardiovascular Cardiovascular: Denies chest pain, Denies palpitations and Denies dyspnea Respiratory Respiratory: Denies cough and Denies dyspnea Endocrine Endocrine: Denies palpitations Physical Exam Vital Signs: Vital Signs: Last Vital Signs Temp 99.1 F 01/08/25 07:57 Pulse 98 01/08/25 07:57 Resp 18 01/08/25 07:57 BP 119/67 01/08/25 07:57 Pulse Ox 97 01/08/25 07:57 O2 Del Method Room Air 01/08/25 07:57 BMI result Body Mass Index 31.4 Const: General: comfortable and no acute distress Nutritional Appearance: overweight Orientation/consciousness: patient oriented x3 Resp: Effort & Inspection: normal respiratory effort, able to speak in complete sentences, no respiratory distress and no use of accessory muscles Cardio: Rate: regular rate GI: Inspection: No distended Palpation (GI): Soft to palpation Skin: Other: right thumb swollen with erythema Neuro: General: patient oriented x3 and moves all extremities Objective Data Active Medications Acetaminophen (Acetaminophen 325 Mg Tablet) 650 mg PO Q6H PRN PRN Reason: Pain, Mild 1-3,fever,headache Last Admin: 01/07/25 18:10 Dose: 650 mg Documented By: SHONDA Bupropion HCl (Bupropion Hcl Xl 300 Mg Tab.Er.24h) 300 mg PO DAILY [facility] Last Admin: 01/08/25 08:30 Dose: Not Given Documented By: JUSTICE Non-Admin Reason: NPO Calcium Carbonate (Calcium Carbonate 750 Mg Tab.Chew) 750 mg PO Q4H PRN PRN Reason: Heartburn Dextrose (Dextrose 50 % 25 Gm/50 Ml Syringe) 25 gm IVPUSH Q15M PRN; Protocol PRN Reason: per Hypoglycemia Standing Ord. Docusate Sodium (Docusate Sodium 100 Mg Capsule) 100 mg PO BID [facility] Last Admin: 01/08/25 08:30 Dose: Not Given Documented By: JUSTICE Non-Admin Reason: NPO Enoxaparin Sodium (Enoxaparin Sodium 40 Mg/0.4 Ml Syringe) 40 mg SUBCUT Q24H [facility] Last Admin: 01/07/25 17:25 Dose: 40 mg Documented By: SHONDA Folic Acid (Folic Acid 1 Mg Tablet) 1 mg PO DAILY [facility] Last Admin: 01/08/25 08:31 Dose: Not Given Documented By: JUSTICE Non-Admin Reason: NPO Glucose (Glucose Gel 15 Gm Gel..Gram.) 15 gm PO Q15M PRN; Protocol PRN Reason: per Hypoglycemia Standing Ord. Guaifenesin (Guaifenesin La 600 Mg Tab.Er.12h) 1,200 mg PO BID [facility] Last Admin: 01/08/25 08:31 Dose: Not Given Documented By: JUSTICE Non-Admin Reason: NPO Hydroxyzine HCl (Hydroxyzine Hcl 25 Mg Tablet) 25 mg PO Q6H PRN PRN Reason: Anxiety Vancomycin HCl 1,250 mg/ (Sodium Chloride) 250 mls @ 166.667 mls/hr IV Q12H [facility] Last Admin: 01/08/25 11:52 Dose: 166.67 mls/hr Documented By: JUSTICE Insulin Human Lispro (Insulin Lispro 100 Unit/Ml 3 Ml Vial) 0 unit SUBCUT QIDACHS [facility]; Protocol Last Admin: 01/08/25 11:48 Dose: Not Given Documented By: JUSTICE Non-Admin Reason: No Insulin Coverage Loperamide HCl (Loperamide Hcl 2 Mg Capsule) 2 mg PO Q4H PRN PRN Reason: stool Magnesium Hydroxide (Milk Of Magnesia 30 Ml Oral.Susp) 30 ml PO DAILY PRN PRN Reason: Constipation Magnesium Oxide (Magnesium Oxide 400 Mg Tablet) 400 mg PO TID [facility] Last Admin: 01/08/25 08:31 Dose: Not Given Documented By: JUSTICE Non-Admin Reason: NPO Melatonin (Melatonin 3 Mg Tablet) 6 mg PO BEDTIME PRN PRN Reason: Insomnia Methocarbamol (Methocarbamol 750 Mg Tablet) 750 mg PO Q8H PRN PRN Reason: MYALGIAS Morphine Sulfate (Morphine Sulfate 2 Mg/Ml Cartridge) 2 mg IVPUSH Q4H PRN; Protocol PRN Reason: Pain, Severe (Pain Scale 7-10) Last Admin: 01/08/25 11:56 Dose: 2 mg Documented By: JUSTICE Multivitamins/Vitamin C (Multivitamin Tablet) 1 tab PO DAILY [facility] Last Admin: 01/08/25 08:31 Dose: Not Given Documented By: JUSTICE Non-Admin Reason: NPO Nicotine (Nicotine 21 Mg Patch.Td24) 21 mg TRANSDERMA DAILY PRN PRN Reason: NICTOCINE WITHDRAWAL Nicotine Polacrilex (Nicotine Polacrilex 2 Mg Gum) 2 mg BUCCAL Q2H PRN PRN Reason: Nicotine Cravings Ondansetron HCl (Ondansetron Odt 4 Mg Tab.Rapdis) 4 mg TRANSLINGU Q6H PRN PRN Reason: Nausea And Vomiting Oxycodone HCl (Oxycodone Hcl Immed Release 5 Mg Tablet) 5 mg PO Q6H PRN PRN Reason: Pain, Moderate(Pain Scale 4-6) Pharmacy Consult (Consult Rx Vancomycin Dosing) 1 each MISCELLANE DAILY PRN PRN Reason: Consult order Prazosin HCl (Prazosin Hcl 1 Mg Capsule) 2 mg PO BEDTIME [facility]; Protocol Last Admin: 01/07/25 20:57 Dose: 2 mg Documented By: ANTMIRA Quetiapine Fumarate (Quetiapine Fumarate 300 Mg Tablet) 300 mg PO BEDTIME [facility] Last Admin: 01/07/25 20:57 Dose: 300 mg Documented By: ANTMIRA Risperidone (Risperidone 2 Mg Tablet) 4 mg PO BEDTIME [facility] Last Admin: 01/07/25 20:57 Dose: 4 mg Documented By: ANTMIRA Senna (Sennosides 8.6 Mg Tablet) 8.6 mg PO BID PRN PRN Reason: second line constipation Sodium Chloride (0.9 % Sodium Chloride Flush 3 Ml Syringe) 3 ml IVFLUSH QSHIFT [facility] Last Admin: 01/08/25 11:52 Dose: 3 ml Documented By: JUSTICE Thiamine HCl (Thiamine Hcl 100 Mg Tablet) 100 mg PO DAILY [facility] Last Admin: 01/08/25 08:31 Dose: Not Given Documented By: JUSTICE Non-Admin Reason: NPO Topiramate (Topiramate 25 Mg Tablet) 25 mg PO DAILY [facility] Last Admin: 01/08/25 08:31 Dose: Not Given Documented By: JUSTICE Non-Admin Reason: NPO Trazodone HCl (Trazodone Hcl 50 Mg Tablet) 50 mg PO BEDTIME PRN PRN Reason: Insomnia Labs 01/08/25 06:16 01/08/25 06:16 Labs: Laboratory Results - last 24 hr 01/07/25 01/07/25 01/07/25 12:38 12:39 18:04 MCV 87.1 MCH 30.9 MCHC 35.5 RDW 12.0 Plt Count 221 MPV 9.7 Immature Gran % (Auto) 0.3 Neut % (Auto) 72.4 Lymph % (Auto) 16.4 L Cottle % (Auto) 10.7 Eos % (Auto) 0.1 Baso % (Auto) 0.1 Lymph # (Auto) 1.9 Cottle # (Auto) 1.3 H Eos # (Auto) 0.0 Baso # (Auto) 0.0 Abs Immat Gran (auto) 0.03 Absolute Neuts (auto) 8.5 H Absolute Nucleated RBC 0.000 Nucleated RBC % (auto) 0.0 PT 11.7 INR 1.0 APTT 26.1 Anion Gap 15 Estim Creat Clear Calc 94.5 Estimated GFR > 60 POC Glucose 107 Random Glucose 113 Lactic Acid 0.8 Calcium 9.4 Total Bilirubin 0.6 Direct Bilirubin 0.2 AST 32 ALT 45 H Alkaline Phosphatase 78 Total Protein 7.3 Albumin 4.3 01/07/25 01/08/25 01/08/25 21:01 06:16 07:00 MCV 87.4 MCH 30.7 MCHC 35.1 RDW 12.0 Plt Count 199 MPV 9.6 Immature Gran % (Auto) 0.1 Neut % (Auto) 55.0 Lymph % (Auto) 34.2 Cottle % (Auto) 9.9 Eos % (Auto) 0.4 Baso % (Auto) 0.4 Lymph # (Auto) 2.5 Cottle # (Auto) 0.7 Eos # (Auto) 0.0 Baso # (Auto) 0.0 Abs Immat Gran (auto) 0.01 Absolute Neuts (auto) 4.1 Absolute Nucleated RBC 0.000 Nucleated RBC % (auto) 0.0 PT INR APTT Anion Gap 12 Estim Creat Clear Calc 119.2 Estimated GFR > 60 POC Glucose 175 H 132 H Random Glucose 121 H Lactic Acid Calcium 8.7 D Total Bilirubin Direct Bilirubin AST ALT Alkaline Phosphatase Total Protein Albumin 01/08/25 11:27 MCV MCH MCHC RDW Plt Count MPV Immature Gran % (Auto) Neut % (Auto) Lymph % (Auto) Cottle % (Auto) Eos % (Auto) Baso % (Auto) Lymph # (Auto) Cottle # (Auto) Eos # (Auto) Baso # (Auto) Abs Immat Gran (auto) Absolute Neuts (auto) Absolute Nucleated RBC Nucleated RBC % (auto) PT INR APTT Anion Gap Estim Creat Clear Calc Estimated GFR POC Glucose 125 H Random Glucose Lactic Acid Calcium Total Bilirubin Direct Bilirubin AST ALT Alkaline Phosphatase Total Protein Albumin Assessment and Plan (1) Cellulitis and abscess of hand: Status: Acute Plan This is a 44 year old male with history of jlu-ivvhbtc-tensiivet type 2 diabetes, chronic low back pain, depression, crack cocaine abuse, and alcohol abuse admitted for further management of acute cellulitis and abscess of the right thumb Acute cellulitis and abscess right thumb X-ray negative for any acute osseous abnormality or foreign body No sepsis/severe sepsis continue IV vancomycin Orthopedic consult - plan for OR drainage today Pain management p.r.n. blood cultures pending hypokalemia replace and follow Crack cocaine abuse was being treated at [facility], can resume care after acute medical issues resolve Alcohol use disorder Outside of window for withdrawal-admitted from [facility] Continue p.o. thiamine and folic acid Major depressive disorder with SI Continue home medications -Wellbutrin, Seroquel, Risperdal, prazosin, topiramate Sitter in place care team eval prior to d/c vs d/c back to [facility] Huv-bxcepaz-edlrltpuz type 2 diabetes POC glucose, diabetic diet Sliding scale insulin. Hold metformin Chronic low back pain Continue Robaxin Nicotine dependence Continue NRT DVT prophylaxis-Lovenox Full code Requires ongoing inpatient stay for management of acute cellulitis and abscess of the right thumb which is his dominant hand and has a history of drug use requiring IV antibiotics and expert consultation Quality Stroke Does the patient have a stroke diagnosis?: No VTE Prior VTE?: No VTE Risk Level:: Medical - moderate - high VTE Device Contraindication: Treatment Not Indicated VTE Drug Contraindication: N/A - Med Ordered
[2025-01-08 12:26] VITALS: BP 120/79; PULSE 100; RESP 18; TEMP 36.4; O2SAT 95
--- NOTE | 2025-01-08 13:54 | MHC.SHP ---
Pre-Procedural Eval Section A - 24 Hr Update-Section A only Date of Service: 01/08/25 The patient is an INPATIENT: Yes Changes since office visit: No Cold of Flu in the past 2 weeks, No New Medical Problems, No Changes in Medication and No Patient answered all questions The patient has been examined within 24 hours of the surgical procedure. The History & Physical has been completed within 30 days and I have reviewed it.: Yes Section B - Complete if H&P > 30 days Chief Complaint: Cellulitis and abscess right thumb Allergies: Allergies Allergy/AdvReac Type Severity Reaction Status Date / Time No Known Allergies Allergy Verified 01/07/25 10:37 Exam Exam Comment: The patient was seen and evaluated by me in preop hold. He has a visible paronychial infection, as well as a felon involving the the pad of the right thumb extending just proximal to the IP joint. Normal looks like it has a bloody bulla on top of it. He has good active motion of the thumb with only mild discomfort. The flexor tendon sheath does not appear to be involved. He can flex his fingers to a fist and back into extension in the fingers do not appear to be involved. Plan Diagnosis/Plan: Unchanged I have reviewed the history and physical and performed a pertinent physical examination on my patient. No changes have occurred unless specified. Assessment and plan: 1. Right thumb paronychial infection 2. Right thumb felon I educated the patient about this condition and explained that I am recommending surgery. We did discuss operative and non operative treatment options. He would like to proceed with surgery The patient is on a psychiatric hold with a sitter. He says that he does sign for himself. The risks and benefits of operative treatment were discussed with the patient and the patient wishes to proceed with surgery. These risks include, but are not limited to risk of damage to blood vessels, nerves, tendons, infection, recurrence, incomplete relief of preoperative symptoms, persistent pain, possible need for further surgery and the risks associated with regional blocks and anesthesia. The plan is to take the patient to the operating room today for the following procedures: 1. Right thumb I and D 2. [ ] All of the preoperative paperwork including the consent was filled out today. All the patient's questions were answered. Time Spent With Patient Time: Total time managing care of this patient today ____ minutes.
--- NOTE | 2025-01-08 13:57 | P.OP_ITS ---
Operative Note Operative Note Date of Service: 01/08/25 Narrative: Operative Note Preop diagnosis: 1. Right thumb paronychial infection 2. Right thumb felon Postop diagnosis: same Procedure: 1. I&D of right thumb felon 2. I and D of right thumb paronychial infection Surgeon: Marcela Vargas MD Family Development Specialist: Guanaco PAULA Anesthesia: digital block using 1% lidocaine with epinephrine Findings: large [id number] volar bulla,extending to a deep felon with a 1.5 cm ar ea of skin loss EBL: Less than 5 mL Tourniquet time: None Specimens: Cultures taken Complications: None Disposition: Brought to recovery room in stable condition Plan: Admit back to the floor for IV antibiotics. Check cultures and adjust antibiotics appropriately. First dressing change Sunday morning with Orthopedics, daily nursing dressing changes after that. Follow-up in ortho clinic within 5-7 days from discharge for wound check and to check cultures. Indications: The patient is 44 years old, with a right thumb felon and paronychial infection . The risks and benefits of operative treatment including but not limited to risk of damage to blood vessels, nerves, tendons, infection, persistent pain, persistent symptoms, recurrence or possible need for additional surgery were discussed with the patient and the patient wishes to proceed with surgery. Procedure: Once consent was obtained a digital block was performed in the preop area using a combination of 1% lidocaine with epinephrine. The patient was then brought back to the operating suite and placed on the operative table in supine position. The right upper extremity was prepped and draped in a standard surgical fashion. Once assured that we had a good block, I made an oblique incision over the apex of the right thumb felon. There was a large, 3 cm x 2 cm bulla on the volar aspect of the thumb that was filled with garcia creamy purulence. Cultures were taken of this. I then debrided the bulla, revealing an approximately 1.5 cm diameter area of full-thickness skin loss on the pad of the thumb. I then dissected into the pad of the thumb with a pair of iris scissors, and freed up the septae a in the pad of the thumb, debriding the felon. There was more creamy yellowish garcia appearing purulence within the felon. There was also a bulla on the dorsal radial aspect of the thumb just proximal and radial to the nail. This was the paronychia. I debrided this and made a small incision. There was also some fibrinous exudate coming out from under the nail plate and this was debrided as well using a rongeur sure and some tenotomy scissors.. All of these areas were copiously irrigated with normal saline. I also used a 10 mL syringe with an Angiocath to appropriately irrigate in the small spaces. Once satisfied with our I&D of the felon and the paronychia the wounds were copiously irrigated with normal saline and hemostasis was obtained with a brief period of local pressure. A small amount of antibiotic ointment was applied to the volar wound, and a Sterile dressing was applied. The patient appears to have tolerated the procedure well and with no complications. All digits were well vascularized at the conclusion of the case.
--- NOTE | 2025-01-08 14:51 | PC.NURSE ---
gianna cline. procedure changed from general to local.
[2025-01-08 17:22] VITALS: BP 112/89; PULSE 96; RESP 16; TEMP 36.6; O2SAT 96
[2025-01-08 17:39] LABS: Glucose, Whole Blood 87 mg/dL (60-115)
[2025-01-08] MEDS: Potassium Chloride Packet 20 MEQ PACKET 40 MEQ PO (17:42)
[2025-01-08] MEDS: Magnesium Oxide 400 MG TABLET PO ×2 (17:42→20:14)
[2025-01-08] MEDS: Enoxaparin Sodium 40 MG/0.4 ML SYRINGE SUBCUT (17:43)
[2025-01-08 17:45] VITALS: BP 135/85; PULSE 101; RESP 18; TEMP 36.3; O2SAT 96
[2025-01-08 19:32] VITALS: BP 123/79; PULSE 103; RESP 18; TEMP 36.3; O2SAT 96
[2025-01-08] MEDS: traZODone HCL 50 MG TABLET PO (20:14)
[2025-01-08] MEDS: Prazosin HCL 1 MG CAPSULE 2 MG PO (20:14)
[2025-01-08] MEDS: guaiFENesin LA 600 MG TAB.ER.12H 1200 MG PO (20:14)
[2025-01-08] MEDS: Docusate Sodium 100 MG CAPSULE PO (20:14)
[2025-01-08] MEDS: risperiDONE 2 MG TABLET 4 MG PO (20:14)
[2025-01-08 21:48] LABS: Vancomycin Trough 10.1 mcg/mL (10.0-20.0)
--- NOTE | 2025-01-08 21:56 | HE.PHANOTE ---
Re: Vanco Pt has significant renal improvement. Trough returned at 10.1. Continuing this dose will below AUC goal, based on predictions. Dose increased to 1500 q12h, with predicted AUC 449, predicted trough 11.5. Next trough 01/09 @ 2100.
[2025-01-08] MEDS: vancomycin HCL 1,500 MG in 0.9 % Sodium Chloride 500 ML 333.33 MG IV (22:40)
[2025-01-09 03:28] VITALS: BP 117/68; PULSE 78; RESP 18; TEMP 36.2; O2SAT 98
[2025-01-09 06:05] LABS: Anion Gap 10 (12-20); Blood Urea Nitrogen 11 mg/dL (9-16); Calcium 8.6 mg/dL (8.4-10.2); Carbon Dioxide 27 mmol/L (22-29); Chloride 106 mmol/L (96-108); Creatinine Clr Calc Pharmacy 146.4; Estimated Glomerular Filt Rate > 60; Glucose Random 112 mg/dL (60-115); Potassium 3.4 mmol/L (3.3-5.1); Sodium 140 mmol/L (135-145)
[2025-01-09 07:30] LABS: Glucose, Whole Blood 113 mg/dL (60-115)
[2025-01-09 07:33] VITALS: BP 128/61; PULSE 90; RESP 16; TEMP 36.6; O2SAT 97
[2025-01-09 07:57] LABS: Hematocrit 37.8 % (42.0-52.0); Hemoglobin 13.1 g/dl (14.0-18.0); Mean Corpuscular HGB Conc 34.7 g/dl (31.0-36.0); Mean Corpuscular Hemoglobin 30.9 pg (27.0-33.0); Mean Corpuscular Volume 89.2 fL (80.0-98.0); Mean Platelet Volume 10.1 fL (9.4-12.4); Platelet Count 217 X10*3/uL (160-400); Red Blood Count 4.24 X10*6/uL (4.60-5.80); Red Cell Distribution Width 12.4 % (11.0-16.0); White Blood Count 6.2 X10*3/uL (4.8-10.8)
[2025-01-09] MEDS: Docusate Sodium 100 MG CAPSULE PO ×2 (08:14→20:47)
[2025-01-09] MEDS: guaiFENesin LA 600 MG TAB.ER.12H 1200 MG PO (08:14)
[2025-01-09] MEDS: Magnesium Oxide 400 MG TABLET PO ×3 (08:14→20:47)
[2025-01-09] MEDS: Multivitamin TABLET 1 TAB PO (08:14)
[2025-01-09] MEDS: Thiamine HCL 100 MG TABLET PO (08:14)
[2025-01-09] MEDS: buPROPion HCl XL 300 MG TAB.ER.24H PO (08:14)
[2025-01-09] MEDS: Topiramate 25 MG TABLET PO (08:14)
[2025-01-09] MEDS: 0.9 % Sodium Chloride Flush 3 ML SYRINGE IVFLUSH ×3 (08:15→20:48)
[2025-01-09] MEDS: Morphine Sulfate 2 MG/ML CARTRIDGE IVPUSH ×2 (09:57→15:47)
[2025-01-09] MEDS: vancomycin HCL 1,500 MG in 0.9 % Sodium Chloride 500 ML 333.33 MG IV ×2 (11:20→22:28)
[2025-01-09 11:38] LABS: Glucose, Whole Blood 131 mg/dL (60-115)
--- NOTE | 2025-01-09 15:15 | P.PNIM_ITS ---
Subjective Subjective Date of Service: 01/09/25 Interval History: Seen and examined this morning Follow-up for right thumb infection status post drainage in the OR Patient reports pressure in his thumb improved but still reporting pain. Denies fever, chills Review of Systems Review of Systems: Yes all other systems are reviewed and are negative Constitutional Constitutional: Denies chills and Denies fever(s) Physical Exam 2 Vital Signs: Vital Signs: Last Vital Signs Temp 98 F 01/09/25 07:33 Pulse 90 01/09/25 07:33 Resp 16 01/09/25 07:33 BP 128/61 01/09/25 07:33 Pulse Ox 97 01/09/25 07:33 O2 Del Method Room Air 01/09/25 07:33 BMI result Body Mass Index 31.4 Const: General: comfortable and no acute distress Nutritional Appearance: o verweight Orientation/consciousness: patient oriented x3 Resp: Effort & Inspection: normal respiratory effort, able to speak in complete sentences, no respiratory distress and no use of accessory muscles Cardio: Rate: regular rate GI: Inspection: No distended Palpation (GI): Soft to palpation Skin: Other: right thumb wrapped in c/d/i dressing Neuro: General: patient oriented x3 and moves all extremities Objective Data Active Medications Acetaminophen (Acetaminophen 325 Mg Tablet) 650 mg PO Q6H PRN PRN Reason: Pain, Mild 1-3,fever,headache Last Admin: 01/07/25 18:10 Dose: 650 mg Documented By: SHONDA Bupropion HCl (Bupropion Hcl Xl 300 Mg Tab.Er.24h) 300 mg PO DAILY [facility] Last Admin: 01/09/25 08:14 Dose: 300 mg Documented By: VANESSA Calcium Carbonate (Calcium Carbonate 750 Mg Tab.Chew) 750 mg PO Q4H PRN PRN Reason: Heartburn Dextrose (Dextrose 50 % 25 Gm/50 Ml Syringe) 25 gm IVPUSH Q15M PRN; Protocol PRN Reason: per Hypoglycemia Standing Ord. Docusate Sodium (Docusate Sodium 100 Mg Capsule) 100 mg PO BID [facility] Last Admin: 01/09/25 08:14 Dose: 100 mg Documented By: VANESSA Enoxaparin Sodium (Enoxaparin Sodium 40 Mg/0.4 Ml Syringe) 40 mg SUBCUT Q24H [facility] Last Admin: 01/08/25 17:43 Dose: 40 mg Documented By: DABArnav Folic Acid (Folic Acid 1 Mg Tablet) 1 mg PO DAILY [facility] Last Admin: 01/09/25 08:18 Dose: Not Given Documented By: VANESSA Non-Admin Reason: Patient Refused Glucose (Glucose Gel 15 Gm Gel..Gram.) 15 gm PO Q15M PRN; Protocol PRN Reason: per Hypoglycemia Standing Ord. Guaifenesin (Guaifenesin La 600 Mg Tab.Er.12h) 1,200 mg PO BID [facility] Last Admin: 01/09/25 08:14 Dose: 1,200 mg Documented By: VANESSA Hydroxyzine HCl (Hydroxyzine Hcl 25 Mg Tablet) 25 mg PO Q6H PRN PRN Reason: Anxiety Vancomycin HCl 1,500 mg/ (Sodium Chloride) 500 mls @ 333.333 mls/hr IV Q12H [facility] Last Infusion: 01/09/25 12:53 Dose: Infused Documented By: VANESSA Insulin Human Lispro (Insulin Lispro 100 Unit/Ml 3 Ml Vial) 0 unit SUBCUT QIDACHS [facility]; Protocol Last Admin: 01/09/25 11:32 Dose: Not Given Documented By: VANESSA Non-Admin Reason: No Insulin Coverage Loperamide HCl (Loperamide Hcl 2 Mg Capsule) 2 mg PO Q4H PRN PRN Reason: stool Magnesium Hydroxide (Milk Of Magnesia 30 Ml Oral.Susp) 30 ml PO DAILY PRN PRN Reason: Constipation Magnesium Oxide (Magnesium Oxide 400 Mg Tablet) 400 mg PO TID [facility] Last Admin: 01/09/25 08:14 Dose: 400 mg Documented By: VANESSA Melatonin (Melatonin 3 Mg Tablet) 6 mg PO BEDTIME PRN PRN Reason: Insomnia Methocarbamol (Methocarbamol 750 Mg Tablet) 750 mg PO Q8H PRN PRN Reason: MYALGIAS Morphine Sulfate (Morphine Sulfate 2 Mg/Ml Cartridge) 2 mg IVPUSH Q4H PRN; Protocol PRN Reason: Pain, Severe (Pain Scale 7-10) Last Admin: 01/09/25 09:57 Dose: 2 mg Documented By: VANESSA Multivitamins/Vitamin C (Multivitamin Tablet) 1 tab PO DAILY [facility] Last Admin: 01/09/25 08:14 Dose: 1 tab Documented By: VANESSA Nicotine (Nicotine 21 Mg Patch.Td24) 21 mg TRANSDERMA DAILY PRN PRN Reason: NICTOCINE WITHDRAWAL Nicotine Polacrilex (Nicotine Polacrilex 2 Mg Gum) 2 mg BUCCAL Q2H PRN PRN Reason: Nicotine Cravings Oxycodone HCl (Oxycodone Hcl Immed Release 5 Mg Tablet) 5 mg PO Q6H PRN PRN Reason: Pain, Moderate(Pain Scale 4-6) Pharmacy Consult (Consult Rx Vancomycin Dosing) 1 each MISCELLANE DAILY PRN PRN Reason: Consult order Prazosin HCl (Prazosin Hcl 1 Mg Capsule) 2 mg PO BEDTIME [facility]; Protocol Last Admin: 01/08/25 20:14 Dose: 2 mg Documented By: LINDSEY Quetiapine Fumarate (Quetiapine Fumarate 300 Mg Tablet) 300 mg PO BEDTIME [facility] Last Admin: 01/08/25 20:18 Dose: Not Given Documented By: LINDSEY Non-Admin Reason: Patient Refused Risperidone (Risperidone 2 Mg Tablet) 4 mg PO BEDTIME [facility] Last Admin: 01/08/25 20:14 Dose: 4 mg Documented By: LINDSEY Senna (Sennosides 8.6 Mg Tablet) 8.6 mg PO BID PRN PRN Reason: second line constipation Sodium Chloride (0.9 % Sodium Chloride Flush 3 Ml Syringe) 3 ml IVFLUSH QSHIFT [facility] Last Admin: 01/09/25 08:15 Dose: 3 ml Documented By: VANESSA Thiamine HCl (Thiamine Hcl 100 Mg Tablet) 100 mg PO DAILY [facility] Last Admin: 01/09/25 08:14 Dose: 100 mg Documented By: VANESSA Topiramate (Topiramate 25 Mg Tablet) 25 mg PO DAILY [facility] Last Admin: 01/09/25 08:14 Dose: 25 mg Documented By: VANESSA Trazodone HCl (Trazodone Hcl 50 Mg Tablet) 50 mg PO BEDTIME PRN PRN Reason: Insomnia Last Admin: 01/08/25 20:14 Dose: 50 mg Documented By: LINDSEY Labs 01/09/25 05:15 01/09/25 05:15 Labs: Laboratory Results - last 24 hr 01/08/25 01/08/25 01/09/25 17:33 20:54 05:15 MCV 89.2 MCH 30.9 MCHC 34.7 RDW 12.4 Plt Count 217 MPV 10.1 Absolute Nucleated RBC 0.000 Nucleated RBC % (auto) 0.0 Hold Purple Top SEE NOTE Anion Gap 10 L Estim Creat Clear Calc 146.4 Estimated GFR > 60 POC Glucose 87 Random Glucose 112 Calcium 8.6 Vancomycin Trough 10.1 01/09/25 01/09/25 07:23 11:29 MCV MCH MCHC RDW Plt Count MPV Absolute Nucleated RBC Nucleated RBC % (auto) Hold Purple Top Anion Gap Estim Creat Clear Calc Estimated GFR POC Glucose 113 131 H Random Glucose Calcium Vancomycin Trough Microbiology Microbiology Results: Microbiology 01/07/25 12:39 Blood Culture - Preliminary Blood - Venous No growth after 48 hours. 01/07/25 12:30 Blood Culture - Preliminary Blood - Venous No growth after 48 hours. 01/08/25 17:00 Gram Stain - Final Thumb Routine Culture - Preliminary Culture in progress. Assessment and Plan (1) Cellulitis and abscess of hand: Status: Acute Plan This is a 44 year old male with history of gpc-lriosky-plihcmpgq type 2 diabetes, chronic low back pain, depression, crack cocaine abuse, and alcohol abuse admitted for further management of acute cellulitis and abscess of the right thumb Acute cellulitis and abscess right thumb X-ray negative for any acute osseous abnormality or foreign body No sepsis/severe sepsis seen by Orthopedic surgery- s/p OR drainage 01/08 blood cultures negative to date Wound cultures from OR pending Continue IV vancomycin, adjust as per wound cultures plan for dressing change 01/10 and ortho recommends 24-48 more hours of IV abx hypokalemia Resolved with replacement Crack cocaine abuse was being treated at [facility], can resume care after acute medical issues resolve Alcohol use disorder Outside of window for withdrawal-admitted from [facility] Continue p.o. thiamine and folic acid Major depressive disorder with SI Continue home medications -Wellbutrin, Seroquel, Risperdal, prazosin, topiramate Sitter in place care team eval prior to d/c vs d/c back to [facility] Rud-mlnswus-qdvyzctas type 2 diabetes POC glucose, diabetic diet Sliding scale insulin. Hold metformin Chronic low back pain Continue Robaxin Nicotine dependence Continue NRT DVT prophylaxis-Lovenox Full code Requires ongoing inpatient stay for management of acute cellulitis and abscess of the right thumb which is his dominant hand and has a history of drug use requiring IV antibiotics and post operative care Quality Stroke Does the patient have a stroke diagnosis?: No VTE Prior VTE?: No VTE Risk Level:: Medical - moderate - high VTE Device Contraindication: Treatment Not Indicated VTE Drug Contraindication: N/A - Med Ordered
[2025-01-09 15:48] VITALS: BP 120/76; PULSE 88; RESP 18; TEMP 36.1; O2SAT 98
[2025-01-09 16:28] LABS: Glucose, Whole Blood 137 mg/dL (60-115)
--- NOTE | 2025-01-09 16:46 | PM.PNORT ---
Subjective Subjective Date of Service: 01/09/25 Interval history: Postop day 1 status post I and D of right thumb Patient resting comfortably in bed this morning Does report some pain, but reports that pain medication is helping No acute events overnight No other acute complaints or concerns at this time Physical Exam Vital Signs: Vital Signs: Last Vital Signs Temp 96.9 F 01/09/25 15:48 Pulse 88 01/09/25 15:48 Resp 18 01/09/25 15:48 BP 120/76 01/09/25 15:48 Pulse Ox 98 01/09/25 15:48 O2 Del Method Room Air 01/09/25 15:48 BMI result Body Mass Index 31.4 Extrem: Other: Dressing on right thumb clean, dry, intact Erythema that is visible around the dressing appears to be improved significantly from prior to surgery No evidence of saturation of the dressing Edema improved Patient is able to flex and extend the other digits of the right hand without difficulty Compartments soft, nontender Distal sensation intact Capillary refill brisk Procedures Date of Service Date of Service: 01/09/25 Progress Note: A&P Assessment and plan (1) Cellulitis and abscess of hand: Status: Acute Plan 1. Status post I and D of right thumb DOS 01/08/2025 Patient appears to be recovering fairly well postoperatively Patient is educated about the typical recovery course Continue pain management Continue IV antibiotics for at least another 2 days prior to trial of p.o. antibiotics Dressing to remain intact today, will be changed tomorrow morning by Orthopedics Daily dressing changes after that Orthopedics will continue to follow Time Spent With Patient Time: Total time managing care of this patient today ____ minutes. Quality Stroke Does the patient have a stroke diagnosis?: No VTE Prior VTE?: No VTE Risk Level:: Medical - moderate - high VTE Device Contraindication: Treatment Not Indicated VTE Drug Contraindication: N/A - Med Ordered
[2025-01-09] MEDS: Enoxaparin Sodium 40 MG/0.4 ML SYRINGE SUBCUT (17:39)
[2025-01-09 19:49] VITALS: BP 119/75; PULSE 85; RESP 18; TEMP 36.5; O2SAT 93
[2025-01-09 20:33] LABS: Glucose, Whole Blood 113 mg/dL (60-115)
[2025-01-09] MEDS: Prazosin HCL 1 MG CAPSULE 2 MG PO (20:47)
[2025-01-09] MEDS: traZODone HCL 50 MG TABLET PO (20:47)
[2025-01-09] MEDS: risperiDONE 2 MG TABLET 4 MG PO (20:48)
[2025-01-09 21:35] LABS: Vancomycin Random 13.2 mcg/mL (15-20)
[2025-01-10 03:37] VITALS: BP 115/71; PULSE 92; RESP 17; TEMP 36.4; O2SAT 95
[2025-01-10 06:11] LABS: Estimated Glomerular Filt Rate > 60
[2025-01-10 06:55] VITALS: BP 116/66; PULSE 86; RESP 16; TEMP 36.6; O2SAT 98
[2025-01-10 07:09] LABS: Glucose, Whole Blood 123 mg/dL (60-115)
[2025-01-10] MEDS: Topiramate 25 MG TABLET PO (08:15)
[2025-01-10] MEDS: Thiamine HCL 100 MG TABLET PO (08:15)
[2025-01-10] MEDS: Multivitamin TABLET 1 TAB PO (08:15)
[2025-01-10] MEDS: 0.9 % Sodium Chloride Flush 3 ML SYRINGE IVFLUSH ×3 (08:15→19:33)
[2025-01-10] MEDS: buPROPion HCl XL 300 MG TAB.ER.24H PO (08:15)
[2025-01-10] MEDS: Folic Acid 1 MG TABLET PO (08:15)
[2025-01-10] MEDS: Magnesium Oxide 400 MG TABLET PO ×3 (08:16→20:21)
[2025-01-10] MEDS: Morphine Sulfate 2 MG/ML CARTRIDGE IVPUSH ×2 (08:38→19:30)
--- NOTE | 2025-01-10 10:03 | PM.PNORT ---
Subjective Subjective Date of Service: 01/10/25 Interval history: Postop day 2 status post I and D of right thumb Patient resting comfortably in bed this morning Reports a ?pressure? like sensation in the right thumb, pain overall improving No acute events overnight No other acute complaints or concerns at this time. Physical Exam Vital Signs: Vital Signs: Last Vital Signs Temp 98 F 01/10/25 06:55 Pulse 86 01/10/25 06:55 Resp 16 01/10/25 06:55 BP 116/66 01/10/25 06:55 Pulse Ox 98 01/10/25 06:55 O2 Del Method Room Air 01/10/25 06:55 BMI result Body Mass Index 31.4 Extrem: Other: Patient is alert, oriented, and in no acute distress. Neuro: Normal sensation of the tips of all digits of the right hand at this time Vascular: Cap refill brisk Pain: There is tenderness to palpation about the entire right thumb, worst over areas where superficial layer of skin was de roofed No pain with range of motion of the right thumb ROM: Patient was able to flex and extend all digits of the right hand, right thumb with some limitation due to pain, no limitations of other fingers Skin: Surgical site noted to be clean, dry, intact when dressing is removed Skin under superficial area of bulla that was de roofed in surgery appears to have dried out and no further erythema Edema has improved significantly from prior to surgery No active discharge at this time There is an area of total skin loss in the pad of the right thumb, there does appear to be a small amount of granulation tissue that is starting to grow at the edges of this site Psych: Appears grossly normal Affect normal Attitude cooperative Procedures Date of Service Date of Service: 01/10/25 Progress Note: A&P Assessment and plan (1) Cellulitis and abscess of hand: Status: Acute Plan 1. Status post I and D of right thumb DOS 01/08/2025 Patient appears to be recovering well postoperatively Patient is educated about the typical recovery course Dressing changed today without issue Daily dressing changes per nursing starting tomorrow OT for early range of motion of the right hand Continue IV antibiotics per Medicine Dispo planning-awaiting final cultures, medical clearance, OT evaluation Continue with all other recommendations per Medicine Time Spent With Patient Time: Total time managing care of this patient today ____ minutes. Quality Stroke Does the patient have a stroke diagnosis?: No VTE Prior VTE?: No VTE Risk Level:: Medical - moderate - high VTE Device Contraindication: Treatment Not Indicated VTE Drug Contraindication: N/A - Med Ordered
[2025-01-10 11:04] LABS: Glucose, Whole Blood 139 mg/dL (60-115)
--- NOTE | 2025-01-10 11:08 | HO.PM.IMPN ---
Subjective Subjective Date of Service: 01/10/25 Interval History: Seen and examined this morning Follow-up for right thumb infection Patient reports pressure in his thumb improved but still reporting pain. Denies fever, chills Review of Systems Review of Systems: Yes all other systems are reviewed and are negative Constitutional Constitutional: Denies chills and Denies fever(s) Physical Exam Vital Signs: Vital Signs: Last Vital Signs Temp 98 F 01/10/25 06:55 Pulse 86 01/10/25 06:55 Resp 16 01/10/25 06:55 BP 116/66 01/10/25 06:55 Pulse Ox 98 01/10/25 06:55 O2 Del Method Room Air 01/10/25 06:55 BMI result Body Mass Index 31.4 Appearing in no acute distress lung sounds are clear to auscultation heart regular rate rhythm, clear S1, S2 positive bowel sounds, abdomen is soft, nontender neuro patient is alert x3, no focal deficits Hand bandaged Objective Data Active Medications Acetaminophen (Acetaminophen 325 Mg Tablet) 650 mg PO Q6H PRN PRN Reason: Pain, Mild 1-3,fever,headache Last Admin: 01/07/25 18:10 Dose: 650 mg Documented By: SHONDA Bupropion HCl (Bupropion Hcl Xl 300 Mg Tab.Er.24h) 300 mg PO DAILY [facility] Last Admin: 01/10/25 08:15 Dose: 300 mg Documented By: MINERVA Calcium Carbonate (Calcium Carbonate 750 Mg Tab.Chew) 750 mg PO Q4H PRN PRN Reason: Heartburn Dextrose (Dextrose 50 % 25 Gm/50 Ml Syringe) 25 gm IVPUSH Q15M PRN; Protocol PRN Reason: per Hypoglycemia Standing Ord. Docusate Sodium (Docusate Sodium 100 Mg Capsule) 100 mg PO BID [facility] Last Admin: 01/10/25 08:15 Dose: Not Given Documented By: MINERVA Non-Admin Reason: Patient Refused Enoxaparin Sodium (Enoxaparin Sodium 40 Mg/0.4 Ml Syringe) 40 mg SUBCUT Q24H [facility] Last Admin: 01/09/25 17:39 Dose: 40 mg Documented By: VANESSA Folic Acid (Folic Acid 1 Mg Tablet) 1 mg PO DAILY [facility] Last Admin: 01/10/25 08:15 Dose: 1 mg Documented By: MINERVA Glucose (Glucose Gel 15 Gm Gel..Gram.) 15 gm PO Q15M PRN; Protocol PRN Reason: per Hypoglycemia Standing Ord. Guaifenesin (Guaifenesin La 600 Mg Tab.Er.12h) 1,200 mg PO BID [facility] Last Admin: 01/10/25 08:16 Dose: Not Given Documented By: MINERVA Non-Admin Reason: Patient Refused Hydroxyzine HCl (Hydroxyzine Hcl 25 Mg Tablet) 25 mg PO Q6H PRN PRN Reason: Anxiety Vancomycin HCl 1,500 mg/ (Sodium Chloride) 500 mls @ 333.333 mls/hr IV Q12H [facility] Last Infusion: 01/10/25 00:03 Dose: Infused Documented By: LINDSEY Insulin Human Lispro (Insulin Lispro 100 Unit/Ml 3 Ml Vial) 0 unit SUBCUT QIDACHS [facility]; Protocol Last Admin: 01/10/25 07:20 Dose: Not Given Documented By: MNIERVA Non-Admin Reason: No Insulin Coverage Loperamide HCl (Loperamide Hcl 2 Mg Capsule) 2 mg PO Q4H PRN PRN Reason: stool Magnesium Hydroxide (Milk Of Magnesia 30 Ml Oral.Susp) 30 ml PO DAILY PRN PRN Reason: Constipation Magnesium Oxide (Magnesium Oxide 400 Mg Tablet) 400 mg PO TID [facility] Last Admin: 01/10/25 08:16 Dose: 400 mg Documented By: MINERVA Melatonin (Melatonin 3 Mg Tablet) 6 mg PO BEDTIME PRN PRN Reason: Insomnia Methocarbamol (Methocarbamol 750 Mg Tablet) 750 mg PO Q8H PRN PRN Reason: MYALGIAS Morphine Sulfate (Morphine Sulfate 2 Mg/Ml Cartridge) 2 mg IVPUSH Q4H PRN; Protocol PRN Reason: Pain, Severe (Pain Scale 7-10) Last Admin: 01/10/25 08:38 Dose: 2 mg Documented By: MINERVA Multivitamins/Vitamin C (Multivitamin Tablet) 1 tab PO DAILY [facility] Last Admin: 01/10/25 08:15 Dose: 1 tab Documented By: MINERVA Nicotine (Nicotine 21 Mg Patch.Td24) 21 mg TRANSDERMA DAILY PRN PRN Reason: NICTOCINE WITHDRAWAL Nicotine Polacrilex (Nicotine Polacrilex 2 Mg Gum) 2 mg BUCCAL Q2H PRN PRN Reason: Nicotine Cravings Oxycodone HCl (Oxycodone Hcl Immed Release 5 Mg Tablet) 5 mg PO Q6H PRN PRN Reason: Pain, Moderate(Pain Scale 4-6) Pharmacy Consult (Consult Rx Vancomycin Dosing) 1 each MISCELLANE DAILY PRN PRN Reason: Consult order Prazosin HCl (Prazosin Hcl 1 Mg Capsule) 2 mg PO BEDTIME [facility]; Protocol Last Admin: 01/09/25 20:47 Dose: 2 mg Documented By: LINDSEY Quetiapine Fumarate (Quetiapine Fumarate 300 Mg Tablet) 300 mg PO BEDTIME [facility] Last Admin: 01/09/25 20:50 Dose: Not Given Documented By: LINDSEY Non-Admin Reason: Patient Refused Risperidone (Risperidone 2 Mg Tablet) 4 mg PO BEDTIME [facility] Last Admin: 01/09/25 20:48 Dose: 4 mg Documented By: LINDSEY Senna (Sennosides 8.6 Mg Tablet) 8.6 mg PO BID PRN PRN Reason: second line constipation Sodium Chloride (0.9 % Sodium Chloride Flush 3 Ml Syringe) 3 ml IVFLUSH QSHIFT [facility] Last Admin: 01/10/25 08:15 Dose: 3 ml Documented By: MINERVA Thiamine HCl (Thiamine Hcl 100 Mg Tablet) 100 mg PO DAILY [facility] Last Admin: 01/10/25 08:15 Dose: 100 mg Documented By: MINERVA Topiramate (Topiramate 25 Mg Tablet) 25 mg PO DAILY [facility] Last Admin: 01/10/25 08:15 Dose: 25 mg Documented By: MINERVA Trazodone HCl (Trazodone Hcl 50 Mg Tablet) 50 mg PO BEDTIME PRN PRN Reason: Insomnia Last Admin: 01/09/25 20:47 Dose: 50 mg Documented By: LINDSEY Labs 01/09/25 05:15 01/10/25 05:27 Labs: Laboratory Results - last 24 hr 01/09/25 01/09/25 01/09/25 11:29 16:24 20:30 Hold Purple Top Estim Creat Clear Calc Estimated GFR POC Glucose 131 H 137 H 113 Random Vancomycin 01/09/25 01/10/25 01/10/25 21:01 05:27 07:04 Hold Purple Top SEE NOTE Estim Creat Clear Calc 153.0 Estimated GFR > 60 POC Glucose 123 H Random Vancomycin 13.2 L 01/10/25 11:00 Hold Purple Top Estim Creat Clear Calc Estimated GFR POC Glucose 139 H Random Vancomycin Microbiology Microbiology Results: Microbiology 01/08/25 17:00 Gram Stain - Final Thumb Routine Culture - Preliminary Culture in progress. 01/07/25 12:39 Blood Culture - Preliminary Blood - Venous No growth after 48 hours. 01/07/25 12:30 Blood Culture - Preliminary Blood - Venous No growth after 48 hours. Assessment and Plan (1) Cellulitis and abscess of hand: Status: Acute Plan 44 year old male with history of hjn-umujmtp-[id number] type 2 diabetes, chronic low back pain, depression, crack cocaine abuse, and alcohol abuse admitted for further management of acute cellulitis and abscess of the right thumb Acute cellulitis and abscess right thumb X-ray negative for any acute osseous abnormality or foreign body No sepsis/severe sepsis seen by Orthopedic surgery- s/p OR drainage 01/08 blood cultures negative to date Wound cultures from OR pending Continue IV vancomycin, adjust as per wound cultures dressing change today, ortho recommends 24-48 more hours of IV abx Hypokalemia Resolved with replacement Crack cocaine abuse was being treated at [facility], can resume care after acute medical issues resolve Alcohol use disorder Outside of window for withdrawal-admitted from [facility] Continue p.o. thiamine and folic acid Major depressive disorder with SI Continue home medications -Wellbutrin, Seroquel, Risperdal, prazosin, topiramate Sitter in place care team eval prior to d/c vs d/c back to [facility] Iiz-ionwmbz-fzamvoume type 2 diabetes POC glucose, diabetic diet Sliding scale insulin. Hold metformin Chronic low back pain Continue Robaxin Nicotine dependence Continue NRT DVT prophylaxis-Lovenox Full code Requires ongoing inpatient stay for management of acute cellulitis and abscess of the right thumb which is his dominant hand and has a history of drug use requiring IV antibiotics and post operative care Quality Stroke Does the patient have a stroke diagnosis?: No VTE Prior VTE?: No VTE Risk Level:: Medical - moderate - high VTE Device Contraindication: Treatment Not Indicated VTE Drug Contraindication: N/A - Med Ordered
[2025-01-10] MEDS: vancomycin HCL 1,500 MG in 0.9 % Sodium Chloride 500 ML 333.33 MG IV ×2 (11:19→22:21)
[2025-01-10 15:10] VITALS: BP 111/62; PULSE 88; RESP 18; TEMP 36.6; O2SAT 95
[2025-01-10 16:11] LABS: Glucose, Whole Blood 100 mg/dL (60-115)
[2025-01-10] MEDS: Enoxaparin Sodium 40 MG/0.4 ML SYRINGE SUBCUT (17:29)
[2025-01-10 19:01] VITALS: BP 132/89; PULSE 88; RESP 18; TEMP 36.8; O2SAT 93
[2025-01-10 20:15] LABS: Glucose, Whole Blood 146 mg/dL (60-115)
[2025-01-10] MEDS: Prazosin HCL 1 MG CAPSULE 2 MG PO (20:21)
[2025-01-10] MEDS: risperiDONE 2 MG TABLET 4 MG PO (20:22)
[2025-01-10] MEDS: Docusate Sodium 100 MG CAPSULE PO (20:22)
[2025-01-10] MEDS: traZODone HCL 50 MG TABLET PO (20:22)
[2025-01-10 21:19] LABS: Vancomycin Random 15.3 mcg/mL (15-20)
--- NOTE | 2025-01-10 21:25 | HE.PHANOTE ---
Vanco level came back at 15.3 predicted AUC of 452 will leave current dose as is
[2025-01-11 03:07] VITALS: BP 119/73; PULSE 93; RESP 20; TEMP 36.3; O2SAT 92
[2025-01-11 05:54] LABS: Creatinine Clr Calc Pharmacy 142.3; Estimated Glomerular Filt Rate > 60
[2025-01-11 06:59] VITALS: BP 127/82; PULSE 96; RESP 16; TEMP 36.4; O2SAT 97
[2025-01-11 07:10] LABS: Glucose, Whole Blood 114 mg/dL (60-115)
[2025-01-11] MEDS: Thiamine HCL 100 MG TABLET PO (07:27)
[2025-01-11] MEDS: Multivitamin TABLET 1 TAB PO (07:27)
[2025-01-11] MEDS: Magnesium Oxide 400 MG TABLET PO ×3 (07:27→21:19)
[2025-01-11] MEDS: Folic Acid 1 MG TABLET PO (07:27)
[2025-01-11] MEDS: Morphine Sulfate 2 MG/ML CARTRIDGE IVPUSH ×2 (07:27→17:32)
[2025-01-11] MEDS: 0.9 % Sodium Chloride Flush 3 ML SYRINGE IVFLUSH ×3 (07:27→21:19)
[2025-01-11] MEDS: Topiramate 25 MG TABLET PO (07:27)
[2025-01-11] MEDS: buPROPion HCl XL 300 MG TAB.ER.24H PO (07:28)
--- NOTE | 2025-01-11 09:06 | HO.PM.IMPN ---
Subjective Subjective Date of Service: 01/11/25 Interval History: Seen and examined this morning Follow-up for right thumb infection Patient reports pressure in his thumb improved but still reporting pain. Denies fever, chills Review of Systems Review of Systems: Yes all other systems are reviewed and are negative Constitutional Constitutional: Denies chills and Denies fever(s) Physical Exam Vital Signs: Vital Signs: Last Vital Signs Temp 97.6 F 01/11/25 06:59 Pulse 96 01/11/25 06:59 Resp 16 01/11/25 06:59 BP 127/82 01/11/25 06:59 Pulse Ox 97 01/11/25 06:59 O2 Del Method Room Air 01/11/25 06:59 BMI result Body Mass Index 31.4 Appearing in no acute distress lung sounds are clear to auscultation heart regular rate rhythm, clear S1, S2 positive bowel sounds, abdomen is soft, nontender neuro patient is alert x3, no focal deficits Right hand dressing intact Objective Data Active Medications Acetaminophen (Acetaminophen 325 Mg Tablet) 650 mg PO Q6H PRN PRN Reason: Pain, Mild 1-3,fever,headache Last Admin: 01/07/25 18:10 Dose: 650 mg Documented By: SHONDA Bupropion HCl (Bupropion Hcl Xl 300 Mg Tab.Er.24h) 300 mg PO DAILY [facility] Last Admin: 01/11/25 07:28 Dose: 300 mg Documented By: MINERVA Calcium Carbonate (Calcium Carbonate 750 Mg Tab.Chew) 750 mg PO Q4H PRN PRN Reason: Heartburn Dextrose (Dextrose 50 % 25 Gm/50 Ml Syringe) 25 gm IVPUSH Q15M PRN; Protocol PRN Reason: per Hypoglycemia Standing Ord. Docusate Sodium (Docusate Sodium 100 Mg Capsule) 100 mg PO BID [facility] Last Admin: 01/11/25 07:28 Dose: Not Given Documented By: MINERVA Non-Admin Reason: Patient Refused Enoxaparin Sodium (Enoxaparin Sodium 40 Mg/0.4 Ml Syringe) 40 mg SUBCUT Q24H [facility] Last Admin: 01/10/25 17:29 Dose: 40 mg Documented By: MINERVA Folic Acid (Folic Acid 1 Mg Tablet) 1 mg PO DAILY [facility] Last Admin: 01/11/25 07:27 Dose: 1 mg Documented By: MINERVA Glucose (Glucose Gel 15 Gm Gel..Gram.) 15 gm PO Q15M PRN; Protocol PRN Reason: per Hypoglycemia Standing Ord. Guaifenesin (Guaifenesin La 600 Mg Tab.Er.12h) 1,200 mg PO BID [facility] Last Admin: 01/11/25 07:28 Dose: Not Given Documented By: MINERVA Non-Admin Reason: Patient Refused Hydroxyzine HCl (Hydroxyzine Hcl 25 Mg Tablet) 25 mg PO Q6H PRN PRN Reason: Anxiety Vancomycin HCl 1,500 mg/ (Sodium Chloride) 500 mls @ 333.333 mls/hr IV Q12H [facility] Last Infusion: 01/11/25 00:05 Dose: Infused Documented By: LINDSEY Insulin Human Lispro (Insulin Lispro 100 Unit/Ml 3 Ml Vial) 0 unit SUBCUT QIDACHS [facility]; Protocol Last Admin: 01/11/25 07:14 Dose: Not Given Documented By: MINERVA Non-Admin Reason: No Insulin Coverage Loperamide HCl (Loperamide Hcl 2 Mg Capsule) 2 mg PO Q4H PRN PRN Reason: stool Magnesium Hydroxide (Milk Of Magnesia 30 Ml Oral.Susp) 30 ml PO DAILY PRN PRN Reason: Constipation Magnesium Oxide (Magnesium Oxide 400 Mg Tablet) 400 mg PO TID [facility] Last Admin: 01/11/25 07:27 Dose: 400 mg Documented By: MINERVA Melatonin (Melatonin 3 Mg Tablet) 6 mg PO BEDTIME PRN PRN Reason: Insomnia Methocarbamol (Methocarbamol 750 Mg Tablet) 750 mg PO Q8H PRN PRN Reason: MYALGIAS Morphine Sulfate (Morphine Sulfate 2 Mg/Ml Cartridge) 2 mg IVPUSH Q4H PRN; Protocol PRN Reason: Pain, Severe (Pain Scale 7-10) Last Admin: 01/11/25 07:27 Dose: 2 mg Documented By: MINERVA Multivitamins/Vitamin C (Multivitamin Tablet) 1 tab PO DAILY [facility] Last Admin: 01/11/25 07:27 Dose: 1 tab Documented By: MINERVA Nicotine (Nicotine 21 Mg Patch.Td24) 21 mg TRANSDERMA DAILY PRN PRN Reason: NICTOCINE WITHDRAWAL Nicotine Polacrilex (Nicotine Polacrilex 2 Mg Gum) 2 mg BUCCAL Q2H PRN PRN Reason: Nicotine Cravings Oxycodone HCl (Oxycodone Hcl Immed Release 5 Mg Tablet) 5 mg PO Q6H PRN PRN Reason: Pain, Moderate(Pain Scale 4-6) Pharmacy Consult (Consult Rx Vancomycin Dosing) 1 each MISCELLANE DAILY PRN PRN Reason: Consult order Prazosin HCl (Prazosin Hcl 1 Mg Capsule) 2 mg PO BEDTIME [facility]; Protocol Last Admin: 01/10/25 20:21 Dose: 2 mg Documented By: LINDSEY Quetiapine Fumarate (Quetiapine Fumarate 300 Mg Tablet) 300 mg PO BEDTIME [facility] Last Admin: 01/10/25 20:27 Dose: Not Given Documented By: LINDSEY Non-Admin Reason: Patient Refused Risperidone (Risperidone 2 Mg Tablet) 4 mg PO BEDTIME [facility] Last Admin: 01/10/25 20:22 Dose: 4 mg Documented By: LINDSEY Senna (Sennosides 8.6 Mg Tablet) 8.6 mg PO BID PRN PRN Reason: second line constipation Sodium Chloride (0.9 % Sodium Chloride Flush 3 Ml Syringe) 3 ml IVFLUSH QSHIFT [facility] Last Admin: 01/11/25 07:27 Dose: 3 ml Documented By: MINERVA Thiamine HCl (Thiamine Hcl 100 Mg Tablet) 100 mg PO DAILY [facility] Last Admin: 01/11/25 07:27 Dose: 100 mg Documented By: MINERVA Topiramate (Topiramate 25 Mg Tablet) 25 mg PO DAILY [facility] Last Admin: 01/11/25 07:27 Dose: 25 mg Documented By: MINERVA Trazodone HCl (Trazodone Hcl 50 Mg Tablet) 50 mg PO BEDTIME PRN PRN Reason: Insomnia Last Admin: 01/10/25 20:22 Dose: 50 mg Documented By: LINDSEY Labs 01/09/25 05:15 01/11/25 05:28 Labs: Laboratory Results - last 24 hr 01/10/25 01/10/25 01/10/25 11:00 16:07 20:10 Hold Purple Top Estim Creat Clear Calc Estimated GFR POC Glucose 139 H 100 146 H Random Vancomycin 01/10/25 01/11/25 01/11/25 21:00 05:28 07:06 Hold Purple Top SEE NOTE Estim Creat Clear Calc 142.3 Estimated GFR > 60 POC Glucose 114 Random Vancomycin 15.3 Microbiology Microbiology Results: Microbiology 01/08/25 17:00 Gram Stain - Final Thumb Routine Culture - Final Streptococcus pyogenes (Grp A) Assessment and Plan (1) Cellulitis and abscess of hand: Status: Acute Plan 44 year old male with history of [id number] type 2 diabetes, chronic low back pain, depression, crack cocaine abuse, and alcohol abuse admitted for further management of acute cellulitis and abscess of the right thumb Acute cellulitis and abscess right thumb X-ray negative for any acute osseous abnormality or foreign body No sepsis seen by Orthopedic surgery- s/p OR drainage 01/08 blood cultures negative to date s/p IV vancomycin Wound cultures Streptococcus pyogenes>Augmentin for 10 days Daily dressing changes Major depressive disorder with SI tx from [facility] Continue home medications -Wellbutrin, Seroquel, Risperdal, prazosin, topiramate Sitter in place care team eval prior to d/c Hypokalemia Resolved with replacement Alcohol use disorder Outside of window for withdrawal-admitted from [facility] Continue p.o. thiamine and folic acid [id number]-[id number] type 2 diabetes POC glucose, diabetic diet Sliding scale insulin. Hold metformin Chronic low back pain Continue Robaxin Nicotine dependence Continue NRT DVT prophylaxis-Lovenox Full code Quality Stroke Does the patient have a stroke diagnosis?: No VTE Prior VTE?: No VTE Risk Level:: Medical - moderate - high VTE Device Contraindication: Treatment Not Indicated VTE Drug Contraindication: N/A - Med Ordered
[2025-01-11 12:16] LABS: Glucose, Whole Blood 101 mg/dL (60-115)
[2025-01-11] MEDS: Amoxicillin/Potassium Clav 875 MG TABLET PO ×2 (12:45→21:19)
[2025-01-11 16:00] VITALS: BP 115/76; PULSE 85; RESP 18; TEMP 36.6; O2SAT 95
[2025-01-11] MEDS: Enoxaparin Sodium 40 MG/0.4 ML SYRINGE SUBCUT (16:04)
[2025-01-11 16:39] LABS: Glucose, Whole Blood 119 mg/dL (60-115)
--- NOTE | 2025-01-11 18:47 | PM.PNORT ---
Subjective Subjective Date of Service: 01/11/25 Interval history: Postop day 3 status post I and D of right thumb Patient resting comfortably in bed this morning Reports a ?pressure? like sensation in the right thumb, pain overall improving No acute events overnight No other acute complaints or concerns at this time. Physical Exam Vital Signs: Vital Signs: Last Vital Signs Temp 97.8 F 01/11/25 16:00 Pulse 85 01/11/25 16:00 Resp 18 01/11/25 16:00 BP 115/76 01/11/25 16:00 Pulse Ox 95 01/11/25 16:00 O2 Del Method Room Air 01/11/25 16:00 BMI result Body Mass Index 31.4 Extrem: Other: Patient is alert, oriented, and in no acute distress. Neuro: Normal sensation of the tips of all digits of the right hand at this time Vascular: Cap refill brisk Pain: There is tenderness to palpation about the entire right thumb, worst over areas where superficial layer of skin was de roofed No pain with range of motion of the right thumb ROM: Patient was able to flex and extend all digits of the right hand, right thumb with some limitation due to pain, no limitations of other fingers Skin: Surgical site noted to be clean, dry, intact when dressing is removed Skin under superficial area of bulla that was de roofed in surgery appears to have dried out and no further erythema Edema has improved significantly from prior to surgery No active discharge at this time There is an area of total skin loss in the pad of the right thumb, there does appear to be a small amount of granulation tissue that is starting to grow at the edges of this site Psych: Appears grossly normal Affect normal Attitude cooperative Procedures Date of Service Date of Service: 01/11/25 Progress Note: A&P Assessment and plan (1) Cellulitis and abscess of hand: Status: Acute Plan 1. Status post I and D of right thumb DOS 01/08/2025 Patient appears to be recovering well postoperatively Patient is educated about the typical recovery course Dressing changed today without issue Daily dressing changes per nursing starting tomorrow OT for early range of motion of the right hand Continue antibiotics per Medicine Dispo planning-awaiting final cultures, medical clearance, OT evaluation Continue with all other recommendations per Medicine Time Spent With Patient Time: Total time managing care of this patient today ____ minutes. Quality Stroke Does the patient have a stroke diagnosis?: No VTE Prior VTE?: No VTE Risk Level:: Medical - moderate - high VTE Device Contraindication: Treatment Not Indicated VTE Drug Contraindication: N/A - Med Ordered
[2025-01-11 19:32] VITALS: BP 123/79; PULSE 85; RESP 16; TEMP 36.5; O2SAT 93
[2025-01-11 19:51] LABS: Glucose, Whole Blood 107 mg/dL (60-115)
[2025-01-11] MEDS: Prazosin HCL 1 MG CAPSULE 2 MG PO (21:18)
[2025-01-11] MEDS: traZODone HCL 50 MG TABLET PO (21:18)
[2025-01-11] MEDS: risperiDONE 2 MG TABLET 4 MG PO (21:18)
[2025-01-11] MEDS: Docusate Sodium 100 MG CAPSULE PO (21:19)
[2025-01-12 04:19] VITALS: BP 135/89; PULSE 107; RESP 14; TEMP 36.3; O2SAT 94
[2025-01-12 06:13] LABS: Creatinine Clr Calc Pharmacy 123.5; Estimated Glomerular Filt Rate > 60
[2025-01-12 07:14] VITALS: BP 130/82; PULSE 89; RESP 16; TEMP 36.5; O2SAT 99
[2025-01-12 07:27] LABS: Glucose, Whole Blood 98 mg/dL (60-115)
[2025-01-12] MEDS: Docusate Sodium 100 MG CAPSULE PO (08:06)
[2025-01-12] MEDS: 0.9 % Sodium Chloride Flush 3 ML SYRINGE IVFLUSH (08:07)
[2025-01-12] MEDS: Amoxicillin/Potassium Clav 875 MG TABLET PO (08:07)
[2025-01-12] MEDS: Magnesium Oxide 400 MG TABLET PO (08:07)
[2025-01-12] MEDS: buPROPion HCl XL 300 MG TAB.ER.24H PO (08:07)
[2025-01-12] MEDS: Thiamine HCL 100 MG TABLET PO (08:07)
[2025-01-12] MEDS: Topiramate 25 MG TABLET PO (08:07)
[2025-01-12] MEDS: Folic Acid 1 MG TABLET PO (08:07)
[2025-01-12] MEDS: Multivitamin TABLET 1 TAB PO (08:07)
--- NOTE | 2025-01-12 09:16 | P.DS_ITS ---
DS: Providers Provider Date of Service: 01/12/25 Date of admission: 01/07/25 15:52 Date of discharge: 01/12/25 Primary care physician: None Physician Consults: 01/07/25 16:22 Consult for Sitter Routine Reason for consultation: si 01/11/25 10:24 Inpt CARE Team Crisis Consult Routine Comment: Reason for consultation: medically clear DS: Diagnosis Discharge Diagnosis (1) Cellulitis and abscess of hand: Status: Acute DS: Summary Hospital Course Hospital Course: History and physical as per admitting provider. Patient with history of mee-srzoqzx-dylvptjbi type 2 diabetes, chronic low back pain, depression comes to the emergency room via ambulance on a [address] [facility] from [facility] (being treated for alcohol and cocaine dependence, seeking detox, drinks 3 pt daily, no history of withdrawal seizures or DTs) According to the patient, couple of days ago he noted that he had an infection in his right thumb. Patient denies any known injuries. Per ED report, he did state that he had been in an ER yesterday and was prescribed clindamycin. However on my questioning, he denies this. He denies any fevers or chills. He denies any history of IV drug abuse. He dates state he popped and abscess at the base of his right thumb earlier today. He has been at [facility] due to suicidal ideation which he does endorse is still present. Denies any plan. In the ED, initially tachycardic but otherwise no fevers or hypotension. There is a mild leukocytosis of 11.7. X-ray of the right hand without any acute osseous abnormality or foreign body identified. In the ED, he has received IV vancomycin and Zosyn. 44-year-old man admitted for acute cellulitis and abscess to the right thumb. X-ray negative for any acute osseous abnormality or foreign body and no sepsis. Seen and evaluated by Orthopedic surgery status post drainage, I and D for 01/04/2025. Wound cultures growing Streptococcus pyogenes he has plan for Augmentin for a total of 14 days. Daily wound dressings with antibiotic ointment, gauze, Jimmie, Coban, should consult wound nurse, and occupational therapy, follow up with Orthopedic surgery outpatient Patient [place] [facility] [place] [facility], treated for major depressive disorder with suicidal ideation. Continue medications including Wellbutrin, Seroquel, Risperdal, prazosin, topiramate. Hypokalemia. Resolved with the placement Alcohol use disorder. No withdrawal during hospitalization. May continue thiamine and folic acid Fuv-bmypjbm-aivsfasoc diabetes mellitus type 2. Diabetic diet, treated with sliding scale during hospitalization, continue metformin Chronic low back pain. Continue Robaxin Nicotine dependence. Continue nicotine replacement therapy, discussed the importance of smoking cessation Obesity class 1. 31.4 BMI. Discussed importance of weight management as this may be contributing to worsening of other comorbidities Time Attestation Discharge Coordination Time (in mins): 40 Quality: Safe Use of Opioids Does Pt have an Active Cancer Diagnosis on the Problem List?: No Quality: Stroke Does the patient have a stroke diagnosis?: No Physical Exam Vital Signs: Vital Signs: Last Vital Signs Temp 97.7 F 01/12/25 07:14 Pulse 89 01/12/25 07:14 Resp 16 01/12/25 07:14 BP 130/82 01/12/25 07:14 Pulse Ox 99 01/12/25 07:14 O2 Del Method Room Air 01/12/25 07:14 BMI result Body Mass Index 31.4 Appearing in no acute distress head is normocephalic atraumatic eyes pupils are PERRLA sclera is anicteric mouth throat mucous membranes are intact and moist neck is supple no lymphadenopathy, no JVD noted lung sounds are clear to auscultation heart regular rate rhythm, clear S1, S2 positive bowel sounds, abdomen is soft, nontender neuro patient is alert x3, no focal deficits DS: Data Data Completed and Pending Labs on day of discharge: Laboratory Results - last 24 hr 01/11/25 01/11/25 01/11/25 12:12 16:35 19:47 Hold Purple Top Creatinine Estim Creat Clear Calc Estimated GFR POC Glucose 101 119 H 107 01/12/25 01/12/25 05:25 07:22 Hold Purple Top SEE NOTE Creatinine 0.83 Estim Creat Clear Calc 123.5 Estimated GFR > 60 POC Glucose 98 Preliminary micro results at discharge 01/07/25 12:39 Blood Culture - Preliminary Blood - Venous No growth after 48 hours. 01/07/25 12:30 Blood Culture - Preliminary Blood - Venous No growth after 48 hours. Discharge Plan Discharge Anticipated Discharge Date/Time: 01/12/25 09:08 Patient Disposition: Xfer Psychiatric Hosp Discharge Diagnosis: Acute cellulitis Abscess of right thumb Major depressive disorder with suicidal ideation Hypokalemia Referrals: Marcela Vargas MD [Physician] - 1 Week (01/13/25 13:15 [facility] Marcela Vargas MD) Discharge Medications: New amoxicillin-pot clavulanate 875-125 mg Tablet 1 tab PO Q12H Qty: 25 0RF Continued multivitamin Tablet 1 tab PO DAILY metformin 500 mg Tablet 500 mg PO BID sennosides [senna] 8.6 mg Tablet 8.6 mg PO BID PRN (Reason: second line constipation) acetaminophen 325 mg Tablet 650 mg PO Q4H PRN (Reason: Pain) quetiapine 300 mg Tablet 300 mg PO BEDTIME trazodone 50 mg Tablet 50 mg PO BEDTIME PRN (Reason: Insomnia) Rx Instructions: may repeat in 2 hours if still awake do not give initial dose prior to 2000 or after 0300 nicotine (polacrilex) 2 mg Gum 2 mg BUCCAL Q2H PRN (Reason: Nicotine Cravings) Rx Instructions: chew and tuck into mucosal area for up to 30 minutes risperidone 4 mg Tablet 4 mg PO BEDTIME thiamine HCl (vitamin B1) 100 mg Tablet 100 mg PO DAILY topiramate 25 mg Tablet 25 mg PO DAILY melatonin 3 mg Tablet 6 mg PO BEDTIME PRN (Reason: Insomnia) guaifenesin 100 mg/5 mL Liquid 200 mg PO Q4H PRN (Reason: Cough) Rx Instructions: SF syrup methocarbamol 750 mg Tablet 750 mg PO Q8H PRN (Reason: MYALGIAS) ibuprofen 400 mg Tablet 400 mg PO Q8H PRN (Reason: body-ache, toothache ) nicotine 21 mg/24 hr Patch 24 Hour 1 patch TRANSDERMAL DAILY PRN (Reason: NICTOCINE WITHDRAWAL) Rx Instructions: Remove at bedtime > 15 cigarettes daily docusate sodium 100 mg Capsule 100 mg PO BID folic acid 1 mg Tablet 1 mg PO DAILY calcium carbonate 500 mg calcium (1,250 mg) Tablet,Chewable 500 mg PO Q4H PRN (Reason: Heartburn) ondansetron 4 mg Tablet,Disintegrating 4 mg PO Q6H PRN (Reason: Nausea And Vomiting) prazosin 2 mg Capsule 2 mg PO BEDTIME hydroxyzine pamoate 25 mg Capsule 25 mg PO Q6H PRN (Reason: Anxiety) bupropion HCl 300 mg Tablet Extended Release 24 Hr 300 mg PO DAILY naloxone 4 mg/actuation [place],Non-Aerosol 4 mg INTRANASAL Q2M PRN (Reason: S/SX OF OPIATE OVERDOSE, MAX 5 DOSES. CALL MD) Rx Instructions: spray 1 dose into ONE nostril; alternate nostrils w each dose until help arrives Discontinued loperamide 2 mg Capsule 2 mg PO Q4H PRN (Reason: stool) Rx Instructions: administer after each loose stool until symptoms controlled; do not exceed 8 mg per 24 hrs magnesium hydroxide [Milk of Magnesia] 400 mg/5 mL Suspension 30 ml PO DAILY PRN (Reason: Constipation) Rx Instructions: holD if loose stools alum-mag hydroxide-simeth [Mylanta] 200-200-20 mg/5 mL Suspension 30 ml PO QID PRN (Reason: gi upset) Rx Instructions: administer between meals and at bedtime Cepacol (with benzocain-menth) 10-2.5 mg Lozenge 1 cassandra MUCOUS MEMBRANE Q2H PRN (Reason: Sore Throat) guaifenesin 600 mg Tablet Extended Release 12hr 1,200 mg PO BID magnesium oxide 400 mg magnesium Tablet 400 mg PO TID Discharge Orders: Discharge Order (Routine); Ordered 01/12/25 Ordered By: Hamida Ramos Diet: Advance to usual diet Activity on Discharge: As tolerated Stand Alone Forms: Patient Portal Discharge page Print Language: French Activity Restrictions/Additional Instructions: Wound care: abx ointment, gauze, jimmie, and kobhe Care Plan Goals: Transfer to for treatment of severe depression and suicide ideation Health Concerns: Acute cellulitis Abscess of right thumb Major depressive disorder with suicidal ideation Hypokalemia Plan of Treatment: Follow-up with primary care provider as needed Assessment: See discharge summary
[2025-01-12 11:33] LABS: Glucose, Whole Blood 102 mg/dL (60-115)
[2025-01-12 12:45] VITALS: BP 126/78; PULSE 88; RESP 16; TEMP 36.7; O2SAT 97
--- NOTE | 2025-01-12 13:53 | MHC.CM.PN ---
Patient medically cleared for dc. Transferred to [facility].
== END 2025-01-12 12:45 | DRG 364 ==
LOC: HO.ED 13:48 → HO.EDOVER 16:11 → HO.IMC 19:40 → HO.S3 01-08 11:16
PROVIDERS: Orthopaedic Surgery; Physician Assistant Medical; Admitting Provider Physician Assistant; Emergency Provider Emergency Medicine; Visit Provider Nurse Practitioner Acute Care
PROC: 0JBJ0ZZ Excision of Right Hand Subcutaneous Tissue and Fascia, Open Approach (ICD-10-PCS; principal; 2025-01-08 16:40)
DX: L02.511 Cutaneous abscess of right hand (principal); R45.851 Suicidal ideations; E11.9 Type 2 diabetes mellitus without complications; L03.011 Cellulitis of right finger; E87.6 Hypokalemia; E66.811 Obesity, class 1; F10.20 Alcohol dependence, uncomplicated; F32.9 Major depressive disorder, single episode, unspecified; Z71.3 Dietary counseling and surveillance; Z68.31 Body mass index [BMI] 31.0-31.9, adult; F14.20 Cocaine dependence, uncomplicated; M54.59 Other low back pain; G89.29 Other chronic pain; Z79.84 Long term (current) use of oral hypoglycemic drugs; Z79.899 Other long term (current) drug therapy
CPT/HCPCS: 36415; 73130; 80048; 80076; 80202; 82565; 82947; 83605; 85025; 85027; 85610; 85730; 87040; 87070; 87147; 87205; 97165; 99285; J1650; J2270; J2543; J3370; J3371; S9485

== ENCOUNTER → 2025-01-07 11:24 | Outpatient (BNV) | payer OTHER, SELFPAY | PROVIDERS: Emergency Provider Emergency Medicine; Visit Provider Physician Assistant | DX: L03.119 Cellulitis of unspecified part of limb (principal); L02.519 Cutaneous abscess of unspecified hand | CPT/HCPCS: 26011; 99024 ==

== ENCOUNTER → 2025-01-07 13:39 | Outpatient (BNV) | payer OTHER, SELFPAY | PROVIDERS: Emergency Provider Emergency Medicine; Visit Provider Radiology Diagnostic Radiology | DX: S61.011A Laceration without foreign body of right thumb without damage to nail, initial encounter (principal) | CPT/HCPCS: 73130 ==

== ENCOUNTER → 2025-01-07 15:52 | Outpatient (BNV) | payer OTHER, SELFPAY | PROVIDERS: Admitting Provider Physician Assistant; Emergency Provider Emergency Medicine; Visit Provider Physician Assistant | DX: L03.119 Cellulitis of unspecified part of limb (principal); L02.519 Cutaneous abscess of unspecified hand | CPT/HCPCS: 99223; 99232; 99233 ==

== ENCOUNTER 2025-01-12 13:22 | Inpatient (IN) | payer OTHER, SELFPAY ==
[2025-01-12 14:00] VITALS: BMI 31.4
[2025-01-12 14:10] VITALS: BP 137/85; PULSE 100; RESP 18; TEMP 36.7; O2SAT 97
--- OUTSIDE RECORDS SUMMARY | 2025-01-12 15:53 | XMS_ITS | Clinical Summary ---
Author Organization [facility] Address [address] [place] [address] Care Team Providers Care Slip Bridge Operator Name Role Phone Kimberly Tovar [facility] Primary Care Provider [phone] Source Comments PLEASE NOTE, if this patient [...] Problem Noted Date Diagnosed Date Cocaine abuse ([facility]) 09/28/2022 Cannabis abuse 09/28/2022 Prediabetes 11/22/2020 Hepatic steatosis 01/01/2020 Overview (01/01/2020): 12/17/2019 Liver US Bipolar 1 disorder ([facility]) 11/07/2019 Hepatitis C antibody test positive 11/07/2019 Moderate episode of recurren t major depressive disorder ([facility]) 07/12/2019 HISTORY OF SUICIDAL IDEATION 01/11/2019 Overview (01/20/2019): 01/08/19 [facility] Suicidal ideation --plan take all his medication: crisis called in [facility] ER suicidal--not meeting inpatient req--sent [facility] respite Hyperglyceridemia 01/20/2016 PTSD (post-traumatic stress disorder) 01/20/2016 Anxiety and depression 01/20/2016 Overview (09/23/2018): Per Dr Bustos 03/16 --This is Dr. Bustos writing courtesy of [facility]. ? I reviewed the records. [...] both Seroquel and Wellbutrin H/O cocaine abuse ([facility]) 01/20/2016 Immunizations Immunization Administration Dates Next Due [...] history exists Syphilis Screening 04/24/2024 04/24/2023, 11/25/2020 [id number] ( season) 2024 023 Alcohol and Drug [...] HEPATITIS C ANTIBODY REACTIVE( A) NON-REACT PUJA [facility] Comment: Based on this result, the sample will be tested for HCV RNA by a Nucleic Acid Amplification Test (NAAT) to determine if the patient has a current active infection. Blood Blood / Unknown 04/24/2023 2 :44 PM EDT 04/24/2023 2:45 PM EDT Narrative [facility] [employer] [place] [employer] [facility] - 04/27/2023 10:46 PM EDT FASTING:NO More Fink NP LAB - BLOOD DRAW Edited Result - Final [facility] [address] [address], [facility] [address] [address] * HIV 1/2 AG & AB W/RFLX (4TH GEN) (04/24/2023 2:44 PM EDT) HIV AG/AB, 4TH GEN NON-REAC TIVE NON-REAC TIVE [facility] Comment: HIV-1 antigen and HIV-1/HIV-2 antibodies were [...] ?? For additional information please refer to http://education.HarQen/faq/DFZ238 (This link is being provided for informational/ educational purposes only.) The performance of this assay has not been clinically validated in patients less than 2 years old. Blood Blood / Unknown 04/24/2023 2 :44 PM EDT 04/24/2023 2:45 PM EDT Narrative [facility] - 04/27/2023 10:46 PM EDT FASTING:NO us More Fink NP LAB - BLOOD DRAW Final Result [facility] [address] [address], [facility] [address] [address] * (ABNORMAL) LIPIDS W RFLX TO DIRECT LDL (04/24/2023 2:44 PM EDT) Pathologist [facility] CHOLESTEROL, TOTAL 219(H) <200 mg/dL [facility] HDL CHOLESTEROL 45 > OR = 40 mg/dL [facility] TRIGLYCERIDES 191(H) <150 mg/dL [facility] LDL-CHOLESTEROL 141(H) 99 mg/dL (calc) [facility] Comment: Reference range: <100 Desirable range <100 mg/dL for primary prevention; ?? <70 mg/dL for patients with CHD or diabetic patients with > or = 2 CHD risk factors. LDL-C is now calculated using the Esteban calculation, which is a validated novel method providing better accuracy than the Friedewald equation in the estimation of LDL-C. Obie GAMBOA et al. JUDI. 2013;310(19): 6847-0505 (http://education.PowerDMS/faq/YHY184) CHOL/HDLC RATIO 4.9 <5.0 (calc) [facility] NON-HDL CHOLESTEROL 174(H) <130 mg/dL (calc) [facility] Comment: For patients with diabetes plus 1 major ASCVD risk factor, treating to a non-HDL-C goal of <100 mg/dL (LDL-C of <70 mg/dL) is considered a therapeutic option. Blood Blood / Unknown 04/24/2023 2 :44 PM EDT 04/24/2023 2:45 PM EDT Narrative [facility] - 04/27/2023 10:46 PM EDT FASTING:NO us More Fink NP LAB - BLOOD DRAW Final Result Performing Organization Address [facility]/ZIP Co de Phone Number [facility] [address] [address], [facility] [address] [address] * RPR W/RFLX TITER+FTA+CONF (04/24/2023 2:44 PM EDT) RPR (DX) W/REFL TITER AND CONFIRMATORY TESTING NON-REACT PUJA NON-REACT PUJA [facility] Blood Blood / Unknown 04/24/2023 2 :44 PM EDT 04/24/2023 2:45 PM EDT Narrative [facility] - 04/27/2023 10:46 PM EDT FASTING:NO us More Fink NP LAB - BLOOD DRAW Edited Result - Final Performing Organization Address [facility]/ZIP Co de Phone Number [facility] [address] [address], [employer] [address] [address] * (ABNORMAL) COMPREHENSIVE METABOLIC PANEL (04/24/2023 2:44 PM EDT) GLUCOSE 98 65 - 139 mg/dL [facility] Comment: ?Non-fasting reference interval UREA NITROGEN (BUN) 15 7 - 25 mg/dL [facility] CREATININE (blood) 0.94 0.60 - 1.29 mg/dL [facility] EGFR 103 > OR = 60 mL/min/1. 73m2 [facility] BUN/CREATININE RATIO SEE NOTE: [facility] Comment: ?? Not Reported: BUN and Creatinine are within ?? reference range. ? SODIUM 141 135 - 146 mmol/L [facility] POTASSIUM 4.4 3.5 - 5.3 mmol/L [facility] CHLORIDE 103 98 - 110 mmol/L [facility] CARBON DIOXIDE 30 20 - 32 mmol/L [facility] CALCIUM 9.6 8.6 - 10.3 mg/dL [facility] PROTEIN, TOTAL 7.1 6.1 - 8.1 g/dL [facility] ALBUMIN 4.7 3.6 - 5.1 g/dL [facility] GLOBULIN 2.4 1.9 - 3.7 g/dL (calc) [facility] ALBUMIN/GLOBULI N RATIO 2.0 1.0 - 2.5 (calc) [facility] BILIRUBIN, TOTAL 0.4 0.2 - 1.2 mg/dL [facility] ALKALINE PHOSPHATASE 96 36 - 130 U/L [facility] AST 27 10 - 40 U/L [facility] ALT 53(H) 9 - 46 U/L [facility] Blood Blood / Unknown 04/24/2023 2 :44 PM EDT 04/24/2023 2:45 PM EDT Narrative [facility] - 04/27/2023 10:46 PM EDT FASTING:NO More Fink NP LAB - BLOOD DRAW Edited Result - Final [facility] [address] [address], [facility] [address] [address] from Last 3 Months or Most Recently Relevant to Health Maintenance Insurance [facility] [address] [employer] Care Teams Slip Bridge Operator Relationship Specialty Start Date End Date Kimberly Tovar FNP [address] [place] [address] PCP - General Internal Medicine 05/25/20
--- OUTSIDE RECORDS SUMMARY | 2025-01-12 15:53 | XMS_ITS | Encounter Summary ---
Author Organization [facility] Address [address] [place] [address] Care Team Providers Care Kinesiologist Name Role Phone Kimberly Tovar [facility] Primary Care Provider [phone] Reason for Visit * Reason Comments Medication Management Encounter Details Date Type Department Care Team ([facility] st Contact Info) Description 11/17/2019 / Visits [facility] [address] [place] [phone] Catina Steel APRN [address] [place] [address] Social History Tobacco Use Types Packs/Day Years [...] documented as of this encounter Care Teams Kinesiologist Relationship Specialty Start Date End Date Kimberly Tovar FNP [facility] [place] [address] PCP - General Internal Medicine 05/25/20 documented as of this encounter
[2025-01-12] MEDS: metFORMIN HCl 500 MG TABLET PO (17:59)
--- NOTE | 2025-01-12 18:36 | PC.ADMIT ---
Yusef is a 44 yr old male, admitting to [facility], on a CV, for SI with a plan. Prior to admission he?d been at [facility] & was sent, from there, by ambulance [place] [facility] [place] treatment of a right thumb infection.? He was admitted to the med-surg unit for the infection. While on med-surg, Yusef continued to endorse suicidal ideation with plan to hang himself.? Pt? is A&Ox4, quiet and cooperative with an irritable edge.? He endorses current SI but is able to contract for safety & notify staff if feeling actively suicidal. He also endorses [facility] telling him he?s worthless & to kill himself. Pt denies HI or VH. Yusef is homeless & denies having family support.? He denies having a PCP, therapist or psychiatrist at this time.? States that his meds have been ordered by doctors from hospitals.? He admits to regular use of crack/cocaine & states he only occasionally drinks alcohol (this contradicts reports which stated he drinks every day). He exhibits no withdrawal symptoms. He has dressing & stephie wrap to the right thumb/hand which is clean/dry/intact. Other than that, skin check is unremarkable.? Yusef was oriented to the unit & placed on 5 min safety checks due to ligature risk with stephie wrap.
[2025-01-12 20:14] VITALS: BP 112/68; PULSE 87; TEMP 36.4; O2SAT 96
[2025-01-12] MEDS: risperiDONE 2 MG TABLET 4 MG PO (20:52)
[2025-01-12] MEDS: Prazosin HCL 1 MG CAPSULE 2 MG PO (20:52)
[2025-01-12] MEDS: Amoxicillin/Potassium Clav 875 MG TABLET PO (20:52)
[2025-01-12] MEDS: Docusate Sodium 100 MG CAPSULE PO (20:53)
[2025-01-12] MEDS: traZODone HCL 50 MG TABLET PO (21:10)
[2025-01-13 08:08] VITALS: BP 134/68; PULSE 86; TEMP 36.3; O2SAT 98
[2025-01-13 09:00] LABS: Creatinine Clr Calc Pharmacy 131.3; Estimated Glomerular Filt Rate > 60
[2025-01-13 09:05] LABS: Estimated Average Glucose 105 mg/dL; Hemoglobin A1C 127.4557 umol/L; Hemoglobin A1c % 5.3 % (<6.0); Total Hemoglobin (HGBA1C) 3703.2516 umol/L
[2025-01-13] MEDS: Docusate Sodium 100 MG CAPSULE PO ×2 (09:05→20:48)
[2025-01-13] MEDS: Multivitamin TABLET 1 TAB PO (09:06)
[2025-01-13] MEDS: Topiramate 25 MG TABLET PO (09:06)
[2025-01-13] MEDS: Folic Acid 1 MG TABLET PO (09:06)
[2025-01-13] MEDS: metFORMIN HCl 500 MG TABLET PO ×2 (09:06→17:15)
[2025-01-13] MEDS: buPROPion HCl XL 300 MG TAB.ER.24H PO (09:06)
[2025-01-13] MEDS: Amoxicillin/Potassium Clav 875 MG TABLET PO ×2 (09:06→20:48)
[2025-01-13] MEDS: Thiamine HCL 100 MG TABLET PO (09:06)
[2025-01-13 09:17] LABS: Alanine Aminotransferase 62 U/L (0-40); Alkaline Phosphatase 57 U/L (39-117); Anion Gap 11 (12-20); Aspartate Amino Transferase 32 U/L (5-37); Bilirubin Total 0.3 mg/dL (0.0-1.0); Blood Urea Nitrogen 10 mg/dL (9-16); Carbon Dioxide 25 mmol/L (22-29); Chloride 107 mmol/L (96-108); Cholesterol 201 mg/dL (<200); Creatinine Clr Calc Pharmacy 131.3; Estimated Glomerular Filt Rate > 60; Glucose Random 111 mg/dL (60-115); HDL Cholesterol 41 mg/dL (>40); LDL Cholesterol Calculated 123 mg/dL (<100); Potassium 4.5 mmol/L (3.3-5.1); Sodium 138 mmol/L (135-145); Total Protein 6.8 g/dL (6.5-8.0); Triglycerides 188 mg/dL (<150)
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
[2025-01-13 09:41] LABS: TSH reflex Free T4 2.26 uIU/mL (0.32-4.0)
[2025-01-13 19:40] VITALS: BP 118/63; PULSE 86; RESP 14; TEMP 36.5; O2SAT 95
[2025-01-13] MEDS: traZODone HCL 50 MG TABLET PO (20:48)
[2025-01-13] MEDS: Prazosin HCL 1 MG CAPSULE 2 MG PO (20:48)
[2025-01-13] MEDS: risperiDONE 2 MG TABLET 4 MG PO (20:48)
[2025-01-14 08:00] VITALS: BP 108/57; PULSE 95; RESP 16; TEMP 36.7; O2SAT 98
[2025-01-14] MEDS: Thiamine HCL 100 MG TABLET PO (08:22)
[2025-01-14] MEDS: Multivitamin TABLET 1 TAB PO (08:22)
[2025-01-14] MEDS: Topiramate 25 MG TABLET PO (08:22)
[2025-01-14] MEDS: buPROPion HCl XL 300 MG TAB.ER.24H PO (08:22)
[2025-01-14] MEDS: Docusate Sodium 100 MG CAPSULE PO ×2 (08:22→20:26)
[2025-01-14] MEDS: Folic Acid 1 MG TABLET PO (08:22)
[2025-01-14] MEDS: metFORMIN HCl 500 MG TABLET PO ×2 (08:22→16:38)
[2025-01-14] MEDS: Amoxicillin/Potassium Clav 875 MG TABLET PO ×2 (08:22→20:25)
--- NOTE | 2025-01-14 08:55 | P.PNPSI_ITS ---
Subjective Subjective Date of Service: 01/14/25 Reason For Visit: depression/SI Interim History: Met with patient; discussed with team pt doing a little better; SI, AH lessening. Keeping to himself. Mental Status Exam Mental Status Exam Narrative: Pt is alert and oriented; behavior is somewhat guarded but mostly cooperative, calm; patient is not in distress; dressed in hospital attire, scruffy, disheveled; mood is described as better and affect congruent, less downcast; eye contact appropriate; Speech is with few words but normal rate, volume and prosody and not pressured;psychomotor retardation present; thought process is goal directed, concrete; Thought content is on tx; otherwise pertinent to relevant topics and without any delusional content, paranoid ideations or grandiosity; Less SI; no HI. Intermittent AH, but lessening. Patients insight and judgment impaired but improving Diagnostics Vital Signs (24Hr): Vital Signs - 24 hr 01/13/25 19:40 Temperature 97.7 F Pulse Rate 86 Respiratory Rate 14 Blood Pressure 118/63 Pulse Oximetry 95 Oxygen Delivery Method Room Air BMI result Body Mass Index 31.4 Labs 01/13/25 08:25 Labs: Laboratory Results - last 48 hr 01/13/25 01/13/25 01/13/25 08:25 08:25 08:25 Sodium 138 Potassium 4.5 D Chloride 107 Carbon Dioxide 25 Anion Gap 11 L BUN 10 Creatinine 0.78 0.78 Estim Creat Clear Calc 131.3 131.3 Estimated GFR > 60 Random Glucose Estimat Average Glucose Hemoglobin A1c % Calcium Total Bilirubin AST ALT Alkaline Phosphatase Total Protein Albumin Triglycerides Cholesterol LDL Cholesterol, Calc HDL Cholesterol TSH 01/13/25 08:25 Sodium Potassium Chloride Carbon Dioxide Anion Gap BUN Creatinine Estim Creat Clear Calc Estimated GFR > 60 Random Glucose 111 Estimat Average Glucose 105 Hemoglobin A1c % 5.3 Calcium 9.0 Total Bilirubin 0.3 AST 32 ALT 62 H Alkaline Phosphatase 57 Total Protein 6.8 Albumin 4.0 Triglycerides 188 H Cholesterol 201 H LDL Cholesterol, Calc 123 H HDL Cholesterol 41 TSH 2.26 Medications Medications Current Medications Acetaminophen (Acetaminophen 325 Mg Tablet) 650 mg PO Q6H PRN PRN Reason: Headache/Pain, Scale 1-10 Al Hydroxide/Mg Hydroxide (Magnesium Hydrox/Alum Hydrox 30 Ml Oral.Susp) 30 ml PO Q6H PRN PRN Reason: Heartburn/Nausea Amoxicillin/Clavulanate Potassium (Amoxicillin/Potassium Clav 875 Mg Tablet) 875 mg PO Q12H [facility] Last Admin: 01/14/25 08:22 Dose: 875 mg Bupropion HCl (Bupropion Hcl Xl 300 Mg Tab.Er.24h) 300 mg PO DAILY [facility] Last Admin: 01/14/25 08:22 Dose: 300 mg Calcium Carbonate (Calcium Carbonate 750 Mg Tab.Chew) 500 mg PO Q4H PRN PRN Reason: Heartburn Docusate Sodium (Docusate Sodium 100 Mg Capsule) 100 mg PO BID [facility] Last Admin: 01/14/25 08:22 Dose: 100 mg Folic Acid (Folic Acid 1 Mg Tablet) 1 mg PO DAILY [facility] Last Admin: 01/14/25 08:22 Dose: 1 mg Guaifenesin (Guaifenesin 200 Mg/10 Ml 10 Ml Liquid) 10 ml PO Q4H PRN PRN Reason: Cough Hydroxyzine HCl (Hydroxyzine Hcl 25 Mg Tablet) 25 mg PO Q6H PRN PRN Reason: Anxiety Ibuprofen (Ibuprofen 400 Mg Tablet) 400 mg PO Q8H PRN PRN Reason: tooth ache, body aches Magnesium Hydroxide (Milk Of Magnesia 30 Ml Oral.Susp) 30 ml PO DAILY PRN PRN Reason: Constipation Melatonin (Melatonin 3 Mg Tablet) 6 mg PO BEDTIME PRN PRN Reason: Insomnia Metformin HCl (Metformin Hcl 500 Mg Tablet) 500 mg PO BIDWM [facility] Last Admin: 01/14/25 08:22 Dose: 500 mg Methocarbamol (Methocarbamol 750 Mg Tablet) 750 mg PO Q8H PRN PRN Reason: myalgia Multivitamins/Vitamin C (Multivitamin Tablet) 1 tab PO DAILY [facility] Last Admin: 01/14/25 08:22 Dose: 1 tab Naloxone HCl (Naloxone Hcl Nasal 4 Mg [place]) 4 mg NOSTRILALT Q2M PRN PRN Reason: sx of opiate OD, Max 5 doses Nicotine (Nicotine 21 Mg Patch.Td24) 21 mg TRANSDERMA DAILY PRN PRN Reason: smoking cessation Nicotine Polacrilex (Nicotine Polacrilex 2 Mg Gum) 4 mg BUCCAL Q2H PRN PRN Reason: Nicotine Cravings Olanzapine (Olanzapine 5 Mg Tablet) 5 mg PO TID PRN PRN Reason: agitation Ondansetron HCl (Ondansetron Odt 4 Mg Tab.Rapdis) 4 mg TRANSLINGU Q6H PRN PRN Reason: Nausea and Vomiting Prazosin HCl (Prazosin Hcl 1 Mg Capsule) 2 mg PO BEDTIME CHERELLE; Protocol Last Admin: 01/13/25 20:48 Dose: 2 mg Risperidone (Risperidone 2 Mg Tablet) 4 mg PO BEDTIME CHERELLE Last Admin: 01/13/25 20:48 Dose: 4 mg Senna (Sennosides 8.6 Mg Tablet) 8.6 mg PO BID PRN PRN Reason: Constipation Thiamine HCl (Thiamine Hcl 100 Mg Tablet) 100 mg PO DAILY CHER[facility]LE Last Admin: 01/14/25 08:22 Dose: 100 mg Topiramate (Topiramate 25 Mg Tablet) 25 mg PO DAILY [facility]ER[facility] Last Admin: 01/14/25 08:22 Dose: 25 mg Trazodone HCl (Trazodone Hcl 50 Mg Tablet) 50 mg PO BEDTIME MRX1 PRN PRN Reason: Insomnia Last Admin: 01/12/25 21:10 Dose: 50 mg Trazodone HCl (Trazodone Hcl 50 Mg Tablet) 50 mg PO BEDTIME CHERELLE Last Admin: 01/13/25 20:48 Dose: 50 mg Allergies Allergies Allergy/AdvReac Type Severity Reaction Status Date / Time No Known Allergies Allergy Verified 01/07/25 10:37 Assessment & Plan Assessment & Plan (1) Schizoaffective disorder, depressive type: Status: Acute Code(s): F25.1 - Schizoaffective disorder, depressive type (2) PTSD (post-traumatic stress disorder): Status: Acute Code(s): F43.10 - Post-traumatic stress disorder, unspecified (3) Cocaine use disorder: Status: Acute Code(s): F14.10 - Cocaine abuse, uncomplicated (4) Cellulitis and abscess of hand: Status: Acute Code(s): L03.119 - Cellulitis of unspecified part of limb; L02.519 - Cutaneous abscess of unspecified hand (5) Diabetes: Status: Acute Code(s): E11.9 - Type 2 diabetes mellitus without complications Plan Patient is a 44-year-old male with history of schizoaffective disorder?, PTSD, cocaine use disorder who was 1st admitted to [facility] for SI but then transferred to [place] [facility] floor for cellulitis of his right thumb; patient remained with SI while on the medical floor and now admitted to [place] [facility] unit. Patient reports that he was at a [facility] and sober for over a month; during this time his mood was way better and AH only minimal. He completed the program. While still enrolled and waiting for a [place] house to become available, he impulsively decided to discharge. Patient reports he relapsed using crack cocaine around the clock for 4 days; he started feeling depressed and worthless and AH saying negative things increased; patient developed SI with a plan to hang himself. Instead he self presented to the emergency room and was admitted to [facility]. Patient reports that on the medical floor he remained with SI and has SI now though it is lessening. Feels that current regimen of Wellbutrin and risperidone are helpful if combined with sobriety. -Patient denies alcohol opiate abuse Formulation/clinical reasoning: meets criteria for Schizoaffective disorder, depressed. Currently with SI, though waning; pt wants treatment and to return to aftercare [facility]. Hospital course: 01/14 pt doing a little better; SI, AH lessening. Keeping to himself. PLAN: CV q15 min Continue Wellbutrin XL 300mg daily Conitnue Risperdal 3mg daily Augmentin for a total of 14 days Right thumb cellulitis status post I&D for abscess Daily wound dressings with antibiotic ointment, Kelli conde Coban, -consult wound nurse, and occupational therapy, follow up with Orthopedic surgery outpatient Dr. Marcela Vargas Reason for continued inpatient stay Substantial Risk for: rapid decompensation Time Spent With Patient Time: Total time managing care of this patient today ____ minutes.
[2025-01-14 20:00] VITALS: BP 117/70; PULSE 99; TEMP 36.7; O2SAT 98
[2025-01-14 20:25] VITALS: BP 117/70
[2025-01-14] MEDS: risperiDONE 2 MG TABLET 4 MG PO (20:25)
[2025-01-14] MEDS: traZODone HCL 50 MG TABLET PO (20:25)
[2025-01-14] MEDS: Prazosin HCL 1 MG CAPSULE 2 MG PO (20:25)
[2025-01-15 07:00] VITALS: BMI 31.2
[2025-01-15 08:10] VITALS: BP 114/66; PULSE 113; RESP 16; TEMP 36.6; O2SAT 97
[2025-01-15] MEDS: Docusate Sodium 100 MG CAPSULE PO ×2 (08:25→21:07)
[2025-01-15] MEDS: Folic Acid 1 MG TABLET PO (08:25)
[2025-01-15] MEDS: Topiramate 25 MG TABLET PO (08:25)
[2025-01-15] MEDS: Thiamine HCL 100 MG TABLET PO (08:25)
[2025-01-15] MEDS: Amoxicillin/Potassium Clav 875 MG TABLET PO ×2 (08:25→21:07)
[2025-01-15] MEDS: metFORMIN HCl 500 MG TABLET PO ×2 (08:25→18:17)
[2025-01-15] MEDS: Multivitamin TABLET 1 TAB PO (08:56)
[2025-01-15] MEDS: buPROPion HCl XL 300 MG TAB.ER.24H PO (08:56)
--- NOTE | 2025-01-15 11:41 | P.PNPSI_ITS ---
Subjective Subjective Date of Service: 01/15/25 Reason For Visit: depression/SI Interim History: met with patient; discussed with team pt reports he's good...getting better. Says SI continues to lessen and AH now only comes and goes and also lessening. Pt reports sleeping well and thumb good. Reviewed medications and pt is open to increasing Wellbutrin but agrees to wait another day. Pt shared eagerness to get to outpt program TC; discussed court on 01/20 and asked SW to get in touch with his office lead. Mental Status Exam Mental Status Exam Narrative: Pt is alert and oriented; behavior is keeps to himself but more friendly and is polite and cooperative; calm; patient is not in distress; dressed in hospital attire, scruffy, mood is described as good...better and affect congruent, brighgter, smiled; eye contact appropriate; Speech is normal rate, volume and prosody and not pressured; some psychomotor retardation present; thought process is goal directed, concrete; Thought content is on tx; otherwise pertinent to relevant topics and without any delusional content, paranoid ideations or grandiosity; Less SI; no HI. Intermittent AH, but lessening. Patients insight and judgment impaired but improving Diagnostics Vital Signs (24Hr): Vital Signs - 24 hr 01/14/25 20:00 01/14/25 20:25 01/15/25 08:10 Temperature 98.1 F 97.9 F Pulse Rate 99 113 H Respiratory Rate 16 Blood Pressure 117/70 117/70 114/66 Pulse Oximetry 98 97 Oxygen Delivery Method Room Air Room Air BMI result Body Mass Index 31.4 Labs 01/13/25 08:25 Medications Medications Current Medications Acetaminophen (Acetaminophen 325 Mg Tablet) 650 mg PO Q6H PRN PRN Reason: Headache/Pain, Scale 1-10 Al Hydroxide/Mg Hydroxide (Magnesium Hydrox/Alum Hydrox 30 Ml Oral.Susp) 30 ml PO Q6H PRN PRN Reason: Heartburn/Nausea Amoxicillin/Clavulanate Potassium (Amoxicillin/Potassium Clav 875 Mg Tablet) 875 mg PO Q12H [facility] Last Admin: 01/15/25 08:25 Dose: 875 mg Bupropion HCl (Bupropion Hcl Xl 300 Mg Tab.Er.24h) 300 mg PO DAILY [facility] Last Admin: 01/15/25 08:56 Dose: 300 mg Calcium Carbonate (Calcium Carbonate 750 Mg Tab.Chew) 500 mg PO Q4H PRN PRN Reason: Heartburn Docusate Sodium (Docusate Sodium 100 Mg Capsule) 100 mg PO BID [facility] Last Admin: 01/15/25 08:25 Dose: 100 mg Folic Acid (Folic Acid 1 Mg Tablet) 1 mg PO DAILY [facility] Last Admin: 01/15/25 08:25 Dose: 1 mg Guaifenesin (Guaifenesin 200 Mg/10 Ml 10 Ml Liquid) 10 ml PO Q4H PRN PRN Reason: Cough Hydroxyzine HCl (Hydroxyzine Hcl 25 Mg Tablet) 25 mg PO Q6H PRN PRN Reason: Anxiety Ibuprofen (Ibuprofen 400 Mg Tablet) 400 mg PO Q8H PRN PRN Reason: tooth ache, body aches Magnesium Hydroxide (Milk Of Magnesia 30 Ml Oral.Susp) 30 ml PO DAILY PRN PRN Reason: Constipation Melatonin (Melatonin 3 Mg Tablet) 6 mg PO BEDTIME PRN PRN Reason: Insomnia Metformin HCl (Metformin Hcl 500 Mg Tablet) 500 mg PO BIDWM [facility] Last Admin: 01/15/25 08:25 Dose: 500 mg Methocarbamol (Methocarbamol 750 Mg Tablet) 750 mg PO Q8H PRN PRN Reason: myalgia Multivitamins/Vitamin C (Multivitamin Tablet) 1 tab PO DAILY [facility] Last Admin: 01/15/25 08:56 Dose: 1 tab Naloxone HCl (Naloxone Hcl Nasal 4 Mg [place]) 4 mg NOSTRILALT Q2M PRN PRN Reason: sx of opiate OD, Max 5 doses Nicotine (Nicotine 21 Mg Patch.Td24) 21 mg TRANSDERMA DAILY PRN PRN Reason: smoking cessation Nicotine Polacrilex (Nicotine Polacrilex 2 Mg Gum) 4 mg BUCCAL Q2H PRN PRN Reason: Nicotine Cravings Olanzapine (Olanzapine 5 Mg Tablet) 5 mg PO TID PRN PRN Reason: agitation Ondansetron HCl (Ondansetron Odt 4 Mg Tab.Rapdis) 4 mg TRANSLINGU Q6H PRN PRN Reason: Nausea and Vomiting Prazosin HCl (Prazosin Hcl 1 Mg Capsule) 2 mg PO BEDTIME [facility]; Protocol Last Admin: 01/14/25 20:25 Dose: 2 mg Risperidone (Risperidone 2 Mg Tablet) 4 mg PO BEDTIME [facility] Last Admin: 01/14/25 20:25 Dose: 4 mg Senna (Sennosides 8.6 Mg Tablet) 8.6 mg PO BID PRN PRN Reason: Constipation Thiamine HCl (Thiamine Hcl 100 Mg Tablet) 100 mg PO DAILY [facility] Last Admin: 01/15/25 08:25 Dose: 100 mg Topiramate (Topiramate 25 Mg Tablet) 25 mg PO DAILY [facility] Last Admin: 01/15/25 08:25 Dose: 25 mg Trazodone HCl (Trazodone Hcl 50 Mg Tablet) 50 mg PO BEDTIME MRX1 PRN PRN Reason: Insomnia Last Admin: 01/12/25 21:10 Dose: 50 mg Trazodone HCl (Trazodone Hcl 50 Mg Tablet) 50 mg PO BEDTIME [facility] Last Admin: 01/14/25 20:25 Dose: 50 mg Allergies Allergies Allergy/AdvReac Type Severity Reaction Status Date / Time No Known Allergies Allergy Verified 01/07/25 10:37 Assessment & Plan Assessment & Plan (1) Schizoaffective disorder, depressive type: Status: Acute Code(s): F25.1 - Schizoaffective disorder, depressive type (2) PTSD (post-traumatic stress disorder): Status: Acute Code(s): F43.10 - Post-traumatic stress disorder, unspecified (3) Cocaine use disorder: Status: Acute Code(s): F14.10 - Cocaine abuse, uncomplicated (4) Cellulitis and abscess of hand: Status: Acute Code(s): L03.119 - Cellulitis of unspecified part of limb; L02.519 - Cutaneous abscess of unspecified hand (5) Diabetes: Status: Acute Code(s): E11.9 - Type 2 diabetes mellitus without complications Plan Patient is a 44-year-old male with history of schizoaffective disorder?, PTSD, cocaine use disorder who was 1st admitted to [facility] for SI but then transferred to [facility] floor for cellulitis of his right thumb; patient remained with SI while on the medical floor and now admitted to [facility] psychiatric unit. Patient reports that he was at a [facility] and sober for over a month; during this time his mood was way better and AH only minimal. He completed the program. While still enrolled and waiting for a [place] house to become available, he impulsively decided to discharge. Patient reports he relapsed using crack cocaine around the clock for 4 days; he started feeling depressed and worthless and AH saying negative things increased; patient developed SI with a plan to hang himself. Instead he self presented to the emergency room and was admitted to [facility]. Patient reports that on the medical floor he remained with SI and has SI now though it is lessening. Feels that current regimen of Wellbutrin and risperidone are helpful if combined with sobriety. -Patient denies alcohol opiate abuse Formulation/clinical reasoning: meets criteria for Schizoaffective disorder, depressed. Currently with SI, though waning; pt wants treatment and to return to aftercare [facility]. Hospital course: 01/14 pt doing a little better; SI, AH lessening. Keeping to himself. 01/15 pt reports he's good...getting better. Says SI continues to lessen and AH now only comes and goes and also lessening. Pt reports sleeping well and thumb good. Reviewed medications and pt is open to increasing Wellbutrin but agrees to wait another day. Pt shared eagerness to get to outpt program TC; discussed court on 01/20 and asked SW to get in touch with his office lead. PLAN: CV q15 min Continue Wellbutrin XL 300mg daily Conitnue Risperdal 3mg daily Augmentin for a total of 14 days Right thumb cellulitis status post I&D for abscess Daily wound dressings with antibiotic ointment, gauze, Elia Pereira, -consult wound nurse, and occupational therapy, follow up with Orthopedic surgery outpatient Dr. Marcela Vargas Patient educated on: diagnosis, medication risk/benefits, substance abuse and medical condition Informed Consent: understands Reason for continued inpatient stay Substantial Risk for: stable for discharge and rapid decompensation Time Spent With Patient Time: Total time managing care of this patient today ____ minutes.
[2025-01-15 20:00] VITALS: BP 108/66; PULSE 95; TEMP 36.7; O2SAT 99
[2025-01-15 21:06] VITALS: BP 108/66
[2025-01-15] MEDS: Prazosin HCL 1 MG CAPSULE 2 MG PO (21:06)
[2025-01-15] MEDS: risperiDONE 2 MG TABLET 4 MG PO (21:07)
[2025-01-15] MEDS: traZODone HCL 50 MG TABLET PO (21:07)
[2025-01-16] MEDS: metFORMIN HCl 500 MG TABLET PO ×2 (09:55→17:13)
[2025-01-16] MEDS: buPROPion HCl XL 300 MG TAB.ER.24H PO (09:55)
[2025-01-16] MEDS: Amoxicillin/Potassium Clav 875 MG TABLET PO ×2 (09:55→20:09)
[2025-01-16] MEDS: Topiramate 25 MG TABLET PO (09:55)
[2025-01-16] MEDS: Folic Acid 1 MG TABLET PO (09:55)
[2025-01-16] MEDS: Multivitamin TABLET 1 TAB PO (09:55)
[2025-01-16] MEDS: Thiamine HCL 100 MG TABLET PO (09:55)
[2025-01-16] MEDS: Docusate Sodium 100 MG CAPSULE PO (09:55)
--- NOTE | 2025-01-16 17:42 | HO.PSYCHPN ---
Subjective Subjective Date of Service: 01/16/25 Reason For Visit: depression/SI Interim History: Pt seen in his room. He is awake, alert, resting. He denies current sx of SI,HI,AH,VH. No overt sx of acute miki or psychosis No questions or concerns about his plan of care today. Appears calm, engaging. Medication Compliance: Yes Side effects from medications: No Review of Systems Acute medical concerns: No Review of Systems Review of Systems denies Mental Status Exam Mental Status Exam Patient Appearance: Fatigued Patient Orientation: Person, Place and Situation Level of Consciousness: Alert Patient Behavior: Talkative and Good Eye Contact Mood Description: Withdrawn Affect Description: Withdrawn Ability to Follow Directions: Good Speech Pattern: Spontaneous Speech Judgement: Fair Diagnostics Vital Signs (24Hr): Vital Signs - 24 hr 01/15/25 20:00 01/15/25 21:06 Temperature 98.1 F Pulse Rate 95 Blood Pressure 108/66 108/66 Pulse Oximetry 99 Oxygen Delivery Method Room Air BMI result Body Mass Index 31.2 Labs 01/13/25 08:25 Medications Medications Current Medications Acetaminophen (Acetaminophen 325 Mg Tablet) 650 mg PO Q6H PRN PRN Reason: Headache/Pain, Scale 1-10 Al Hydroxide/Mg Hydroxide (Magnesium Hydrox/Alum Hydrox 30 Ml Oral.Susp) 30 ml PO Q6H PRN PRN Reason: Heartburn/Nausea Amoxicillin/Clavulanate Potassium (Amoxicillin/Potassium Clav 875 Mg Tablet) 875 mg PO Q12H [facility] Last Admin: 01/16/25 09:55 Dose: 875 mg Bupropion HCl (Bupropion Hcl Xl 300 Mg Tab.Er.24h) 300 mg PO DAILY [facility] Last Admin: 01/16/25 09:55 Dose: 300 mg Calcium Carbonate (Calcium Carbonate 750 Mg Tab.Chew) 500 mg PO Q4H PRN PRN Reason: Heartburn Docusate Sodium (Docusate Sodium 100 Mg Capsule) 100 mg PO BID [facility] Last Admin: 01/16/25 09:55 Dose: 100 mg Folic Acid (Folic Acid 1 Mg Tablet) 1 mg PO DAILY [facility] Last Admin: 01/16/25 09:55 Dose: 1 mg Guaifenesin (Guaifenesin 200 Mg/10 Ml 10 Ml Liquid) 10 ml PO Q4H PRN PRN Reason: Cough Hydroxyzine HCl (Hydroxyzine Hcl 25 Mg Tablet) 25 mg PO Q6H PRN PRN Reason: Anxiety Ibuprofen (Ibuprofen 400 Mg Tablet) 400 mg PO Q8H PRN PRN Reason: tooth ache, body aches Magnesium Hydroxide (Milk Of Magnesia 30 Ml Oral.Susp) 30 ml PO DAILY PRN PRN Reason: Constipation Melatonin (Melatonin 3 Mg Tablet) 6 mg PO BEDTIME PRN PRN Reason: Insomnia Metformin HCl (Metformin Hcl 500 Mg Tablet) 500 mg PO BIDWM [facility] Last Admin: 01/16/25 17:13 Dose: 500 mg Methocarbamol (Methocarbamol 750 Mg Tablet) 750 mg PO Q8H PRN PRN Reason: myalgia Multivitamins/Vitamin C (Multivitamin Tablet) 1 tab PO DAILY [facility] Last Admin: 01/16/25 09:55 Dose: 1 tab Naloxone HCl (Naloxone Hcl Nasal 4 Mg [place]) 4 mg NOSTRILALT Q2M PRN PRN Reason: sx of opiate OD, Max 5 doses Nicotine (Nicotine 21 Mg Patch.Td24) 21 mg TRANSDERMA DAILY PRN PRN Reason: smoking cessation Nicotine Polacrilex (Nicotine Polacrilex 2 Mg Gum) 4 mg BUCCAL Q2H PRN PRN Reason: Nicotine Cravings Olanzapine (Olanzapine 5 Mg Tablet) 5 mg PO TID PRN PRN Reason: agitation Ondansetron HCl (Ondansetron Odt 4 Mg Tab.Rapdis) 4 mg TRANSLINGU Q6H PRN PRN Reason: Nausea and Vomiting Prazosin HCl (Prazosin Hcl 1 Mg Capsule) 2 mg PO BEDTIME [facility]; Protocol Last Admin: 01/15/25 21:06 Dose: 2 mg Risperidone (Risperidone 2 Mg Tablet) 4 mg PO BEDTIME [facility] Last Admin: 01/15/25 21:07 Dose: 4 mg Senna (Sennosides 8.6 Mg Tablet) 8.6 mg PO BID PRN PRN Reason: Constipation Thiamine HCl (Thiamine Hcl 100 Mg Tablet) 100 mg PO DAILY [facility] Last Admin: 01/16/25 09:55 Dose: 100 mg Topiramate (Topiramate 25 Mg Tablet) 25 mg PO DAILY [facility] Last Admin: 01/16/25 09:55 Dose: 25 mg Trazodone HCl (Trazodone Hcl 50 Mg Tablet) 50 mg PO BEDTIME MRX1 PRN PRN Reason: Insomnia Last Admin: 01/12/25 21:10 Dose: 50 mg Trazodone HCl (Trazodone Hcl 50 Mg Tablet) 50 mg PO BEDTIME [facility] Last Admin: 01/15/25 21:07 Dose: 50 mg Allergies Allergies Allergy/AdvReac Type Severity Reaction Status Date / Time No Known Allergies Allergy Verified 01/07/25 10:37 Assessment & Plan Assessment & Plan (1) Schizoaffective disorder, depressive type: Status: Acute Code(s): F25.1 - Schizoaffective disorder, depressive type (2) PTSD (post-traumatic stress disorder): Status: Acute Code(s): F43.10 - Post-traumatic stress disorder, unspecified (3) Cocaine use disorder: Status: Acute Code(s): F14.10 - Cocaine abuse, uncomplicated (4) Cellulitis and abscess of hand: Status: Acute Code(s): L03.119 - Cellulitis of unspecified part of limb; L02.519 - Cutaneous abscess of unspecified hand (5) Diabetes: Status: Acute Code(s): E11.9 - Type 2 diabetes mellitus without complications Plan Patient is a 44-year-old male with history of schizoaffective disorder?, PTSD, cocaine use disorder who was 1st admitted to [facility] for SI but then transferred to [facility] floor for cellulitis of his right thumb; patient remained with SI while on the medical floor and now admitted to [facility] psychiatric unit. Patient reports that he was at a [facility] and sober for over a month; during this time his mood was way better and AH only minimal. He completed the program. While still enrolled and waiting for a [place] house to become available, he impulsively decided to discharge. Patient reports he relapsed using crack cocaine around the clock for 4 days; he started feeling depressed and worthless and AH saying negative things increased; patient developed SI with a plan to hang himself. Instead he self presented to the emergency room and was admitted to [facility]. Patient reports that on the medical floor he remained with SI and has SI now though it is lessening. Feels that current regimen of Wellbutrin and risperidone are helpful if combined with sobriety. -Patient denies alcohol opiate abuse Formulation/clinical reasoning: meets criteria for Schizoaffective disorder, depressed. Currently with SI, though waning; pt wants treatment and to return to aftercare [facility]. Hospital course: 01/14 pt doing a little better; SI, AH lessening. Keeping to himself. 01/15 pt reports he's good...getting better. Says SI continues to lessen and AH now only comes and goes and also lessening. Pt reports sleeping well and thumb good. Reviewed medications and pt is open to increasing Wellbutrin but agrees to wait another day. Pt shared eagerness to get to outpt program TC; discussed court on 01/20 and asked SW to get in touch with his exercise physiologist. 01/16 pt reports feeling improved. Continue current regime. PLAN: CV q15 min Continue Wellbutrin XL 300mg daily Conitnue Risperdal 3mg daily Augmentin for a total of 14 days Right thumb cellulitis status post I&D for abscess Daily wound dressings with antibiotic ointment, gauze, Elia Pereira, -consult wound nurse, and occupational therapy, follow up with Orthopedic surgery outpatient Dr. Marcela Vargas Reason for continued inpatient stay Substantial Risk for: rapid decompensation Time Spent With Patient Time: Total time managing care of this patient today ____ minutes.
[2025-01-16 20:00] VITALS: BP 121/66; PULSE 100; RESP 16; TEMP 36.4; O2SAT 97
[2025-01-16] MEDS: risperiDONE 2 MG TABLET 4 MG PO (20:08)
[2025-01-16] MEDS: traZODone HCL 50 MG TABLET PO (20:08)
[2025-01-16 20:09] VITALS: BP 121/66
[2025-01-16] MEDS: Prazosin HCL 1 MG CAPSULE 2 MG PO (20:09)
--- NOTE | 2025-01-17 07:30 | HO.PSYCHPN ---
Subjective Subjective Date of Service: 01/17/25 Reason For Visit: depression/SI Subjective Notes: Conditional Voluntary Healthcare Proxy: No Guardianship: No Medical Problems Affecting Mental Status: No Interim History: 44 yo reports hoping to go back to [facility] - reports slept, nursing reports isolating- denies current si and feel medications helping, no s/e no withdrawal or cravings or xs anxiety/depression Medication Compliance: Yes Side effects from medications: No Attending Groups: Intermittent Review of Systems Acute medical concerns: Yes taking abiotics for thumb reviewed with pt will get x number of days of abiotic on dc- Medical Review of Systems: unchanged Mental Status Exam Mental Status Exam Patient Appearance: Appropriate Patient Orientation: Person, Place, Time and Situation Level of Consciousness: Awake Mood Description: Calm Affect Description: Blunted Patient Cognition Impaired: No Ability to Follow Directions: Good Speech Pattern: Clear Hallucinations: None Delusions: Not Present Thought Process: Intact and Goal Oriented Judgement: Fair Diagnostics Vital Signs (24Hr): Vital Signs - 24 hr 01/16/25 20:00 01/16/25 20:09 Temperature 97.5 F Pulse Rate 100 Respiratory Rate 16 Blood Pressure 121/66 121/66 Pulse Oximetry 97 Oxygen Delivery Method Room Air BMI result Body Mass Index 31.2 Labs 01/13/25 08:25 Medications Medications Current Medications Acetaminophen (Acetaminophen 325 Mg Tablet) 650 mg PO Q6H PRN PRN Reason: Headache/Pain, Scale 1-10 Al Hydroxide/Mg Hydroxide (Magnesium Hydrox/Alum Hydrox 30 Ml Oral.Susp) 30 ml PO Q6H PRN PRN Reason: Heartburn/Nausea Amoxicillin/Clavulanate Potassium (Amoxicillin/Potassium Clav 875 Mg Tablet) 875 mg PO Q12H [facility] Last Admin: 01/16/25 20:09 Dose: 875 mg Bupropion HCl (Bupropion Hcl Xl 300 Mg Tab.Er.24h) 300 mg PO DAILY [facility] Last Admin: 01/16/25 09:55 Dose: 300 mg Calcium Carbonate (Calcium Carbonate 750 Mg Tab.Chew) 500 mg PO Q4H PRN PRN Reason: Heartburn Docusate Sodium (Docusate Sodium 100 Mg Capsule) 100 mg PO BID [facility] Last Admin: 01/16/25 20:11 Dose: Not Given Folic Acid (Folic Acid 1 Mg Tablet) 1 mg PO DAILY [facility] Last Admin: 01/16/25 09:55 Dose: 1 mg Guaifenesin (Guaifenesin 200 Mg/10 Ml 10 Ml Liquid) 10 ml PO Q4H PRN PRN Reason: Cough Hydroxyzine HCl (Hydroxyzine Hcl 25 Mg Tablet) 25 mg PO Q6H PRN PRN Reason: Anxiety Ibuprofen (Ibuprofen 400 Mg Tablet) 400 mg PO Q8H PRN PRN Reason: tooth ache, body aches Magnesium Hydroxide (Milk Of Magnesia 30 Ml Oral.Susp) 30 ml PO DAILY PRN PRN Reason: Constipation Melatonin (Melatonin 3 Mg Tablet) 6 mg PO BEDTIME PRN PRN Reason: Insomnia Metformin HCl (Metformin Hcl 500 Mg Tablet) 500 mg PO BIDWM [facility] Last Admin: 01/16/25 17:13 Dose: 500 mg Methocarbamol (Methocarbamol 750 Mg Tablet) 750 mg PO Q8H PRN PRN Reason: myalgia Multivitamins/Vitamin C (Multivitamin Tablet) 1 tab PO DAILY [facility] Last Admin: 01/16/25 09:55 Dose: 1 tab Naloxone HCl (Naloxone Hcl Nasal 4 Mg [place]) 4 mg NOSTRILALT Q2M PRN PRN Reason: sx of opiate OD, Max 5 doses Nicotine (Nicotine 21 Mg Patch.Td24) 21 mg TRANSDERMA DAILY PRN PRN Reason: smoking cessation Nicotine Polacrilex (Nicotine Polacrilex 2 Mg Gum) 4 mg BUCCAL Q2H PRN PRN Reason: Nicotine Cravings Olanzapine (Olanzapine 5 Mg Tablet) 5 mg PO TID PRN PRN Reason: agitation Ondansetron HCl (Ondansetron Odt 4 Mg Tab.Rapdis) 4 mg TRANSLINGU Q6H PRN PRN Reason: Nausea and Vomiting Prazosin HCl (Prazosin Hcl 1 Mg Capsule) 2 mg PO BEDTIME [facility]; Protocol Last Admin: 01/16/25 20:09 Dose: 2 mg Risperidone (Risperidone 2 Mg Tablet) 4 mg PO BEDTIME [facility] Last Admin: 01/16/25 20:08 Dose: 4 mg Senna (Sennosides 8.6 Mg Tablet) 8.6 mg PO BID PRN PRN Reason: Constipation Thiamine HCl (Thiamine Hcl 100 Mg Tablet) 100 mg PO DAILY [facility] Last Admin: 01/16/25 09:55 Dose: 100 mg Topiramate (Topiramate 25 Mg Tablet) 25 mg PO DAILY [facility] Last Admin: 01/16/25 09:55 Dose: 25 mg Trazodone HCl (Trazodone Hcl 50 Mg Tablet) 50 mg PO BEDTIME MRX1 PRN PRN Reason: Insomnia Last Admin: 01/12/25 21:10 Dose: 50 mg Trazodone HCl (Trazodone Hcl 50 Mg Tablet) 50 mg PO BEDTIME [facility] Last Admin: 01/16/25 20:08 Dose: 50 mg Allergies Allergies Allergy/AdvReac Type Severity Reaction Status Date / Time No Known Allergies Allergy Verified 01/07/25 10:37 Assessment & Plan Assessment & Plan (1) Schizoaffective disorder, depressive type: Status: Acute Code(s): F25.1 - Schizoaffective disorder, depressive type (2) PTSD (post-traumatic stress disorder): Status: Acute Code(s): F43.10 - Post-traumatic stress disorder, unspecified (3) Cocaine use disorder: Status: Acute Code(s): F14.10 - Cocaine abuse, uncomplicated (4) Cellulitis and abscess of hand: Status: Acute Code(s): L03.119 - Cellulitis of unspecified part of limb; L02.519 - Cutaneous abscess of unspecified hand (5) Diabetes: Status: Acute Code(s): E11.9 - Type 2 diabetes mellitus without complications Plan Patient is a 44-year-old male with history of schizoaffective disorder?, PTSD, cocaine use disorder who was 1st admitted to [facility] for SI but then transferred to [place] [facility] floor for cellulitis of his right thumb; patient remained with SI while on the medical floor and now admitted to [place] [facility] unit. Patient reports that he was at a [facility] and sober for over a month; during this time his mood was way better and AH only minimal. He completed the program. While still enrolled and waiting for a Shelter house to become available, he impulsively decided to discharge. Patient reports he relapsed using crack cocaine around the clock for 4 days; he started feeling depressed and worthless and AH saying negative things increased; patient developed SI with a plan to hang himself. Instead he self presented to the emergency room and was admitted to [facility]. Patient reports that on the medical floor he remained with SI and has SI now though it is lessening. Feels that current regimen of Wellbutrin and risperidone are helpful if combined with sobriety. -Patient denies alcohol opiate abuse Formulation/clinical reasoning: meets criteria for Schizoaffective disorder, depressed. Currently with SI, though waning; pt wants treatment and to return to aftercare [facility]. Hospital course: 01/14 pt doing a little better; SI, AH lessening. Keeping to himself. 01/15 pt reports he's good...getting better. Says SI continues to lessen and AH now only comes and goes and also lessening. Pt reports sleeping well and thumb good. Reviewed medications and pt is open to increasing Wellbutrin but agrees to wait another day. Pt shared eagerness to get to outpt program [facility]; discussed court on 01/20 and asked SW to get in touch with his office asst. 01/16 pt reports feeling improved. Continue current regime. PLAN: CV q15 min Continue Wellbutrin XL 300mg daily Conitnue Risperdal 3mg daily Augmentin for a total of 14 days Right thumb cellulitis status post I&D for abscess Daily wound dressings with antibiotic ointment, gauze, Kelli, Elia, -consult wound nurse, and occupational therapy, follow up with Orthopedic surgery outpatient Dr. Marcela Vargas 01/17/25 - feels improved tolerting medications looking to future re dc and trial of css again- he hopes Patient educated on: medical condition Informed Consent: understands Reason for continued inpatient stay Substantial Risk for: rapid decompensation Time Spent With Patient Time: Total time managing care of this patient today ____ minutes.
[2025-01-17 08:00] VITALS: BP 143/63; PULSE 104; TEMP 36.8; O2SAT 97
[2025-01-17] MEDS: Topiramate 25 MG TABLET PO (09:12)
[2025-01-17] MEDS: Multivitamin TABLET 1 TAB PO (09:12)
[2025-01-17] MEDS: buPROPion HCl XL 300 MG TAB.ER.24H PO (09:12)
[2025-01-17] MEDS: metFORMIN HCl 500 MG TABLET PO ×2 (09:12→17:14)
[2025-01-17] MEDS: Folic Acid 1 MG TABLET PO (09:12)
[2025-01-17] MEDS: Amoxicillin/Potassium Clav 875 MG TABLET PO ×2 (09:12→22:07)
[2025-01-17] MEDS: Thiamine HCL 100 MG TABLET PO (09:16)
[2025-01-17 20:00] VITALS: BP 103/56; PULSE 82; RESP 16; TEMP 36.7; O2SAT 95
[2025-01-17 22:07] VITALS: BP 106/76
[2025-01-17] MEDS: Prazosin HCL 1 MG CAPSULE 2 MG PO (22:07)
[2025-01-17] MEDS: risperiDONE 2 MG TABLET 4 MG PO (22:07)
[2025-01-17] MEDS: traZODone HCL 50 MG TABLET PO (22:07)
[2025-01-18 08:00] VITALS: BP 110/57; PULSE 77; TEMP 36.5; O2SAT 94
--- NOTE | 2025-01-18 08:09 | P.PNPSI_ITS ---
Subjective Subjective Date of Service: 01/18/25 Reason For Visit: depression/SI Subjective Notes: Conditional Voluntary Healthcare Proxy: No Guardianship: No Medical Problems Affecting Mental Status: No Interim History: 44 yo reports doing ok - hoping for dc to [facility] and then to [address]- asked him what would be different this time- when he left [facility] before did not go to [address] and had no fu supports- plans to go to [address] for further longer term support- denies current si/hi/psychosis or se of medications Finger is healing- Medication Compliance: Yes Side effects from medications: No Attending Groups: Yes Review of Systems Acute medical concerns: No Medical Review of Systems: unchanged Mental Status Exam Mental Status Exam Patient Appearance: Appropriate Patient Orientation: Person, Place, Time and Situation Level of Consciousness: Awake and Alert Patient Behavior: Appropriate, Cooperative and Good Eye Contact Mood Description: Calm Affect Description: Blunted Patient Cognition Impaired: No Ability to Follow Directions: Good Speech Pattern: Clear Hallucinations: None Delusions: Not Present Thought Content: positive for Intact and positive for Goal Oriented Judgement: Good Diagnostics Vital Signs (24Hr): Vital Signs - 24 hr 01/17/25 20:00 01/17/25 22:07 Temperature 98.0 F Pulse Rate 82 Respiratory Rate 16 Blood Pressure 103/56 L 106/76 Pulse Oximetry 95 Oxygen Delivery Method Room Air BMI result Body Mass Index 31.2 Labs 01/13/25 08:25 Medications Medications Current Medications Acetaminophen (Acetaminophen 325 Mg Tablet) 650 mg PO Q6H PRN PRN Reason: Headache/Pain, Scale 1-10 Al Hydroxide/Mg Hydroxide (Magnesium Hydrox/Alum Hydrox 30 Ml Oral.Susp) 30 ml PO Q6H PRN PRN Reason: Heartburn/Nausea Amoxicillin/Clavulanate Potassium (Amoxicillin/Potassium Clav 875 Mg Tablet) 875 mg PO Q12H [facility] Last Admin: 01/17/25 22:07 Dose: 875 mg Bupropion HCl (Bupropion Hcl Xl 300 Mg Tab.Er.24h) 300 mg PO DAILY [facility] Last Admin: 01/17/25 09:12 Dose: 300 mg Calcium Carbonate (Calcium Carbonate 750 Mg Tab.Chew) 500 mg PO Q4H PRN PRN Reason: Heartburn Docusate Sodium (Docusate Sodium 100 Mg Capsule) 100 mg PO BID [facility] Last Admin: 01/17/25 22:08 Dose: Not Given Folic Acid (Folic Acid 1 Mg Tablet) 1 mg PO DAILY [facility] Last Admin: 01/17/25 09:12 Dose: 1 mg Guaifenesin (Guaifenesin 200 Mg/10 Ml 10 Ml Liquid) 10 ml PO Q4H PRN PRN Reason: Cough Hydroxyzine HCl (Hydroxyzine Hcl 25 Mg Tablet) 25 mg PO Q6H PRN PRN Reason: Anxiety Ibuprofen (Ibuprofen 400 Mg Tablet) 400 mg PO Q8H PRN PRN Reason: tooth ache, body aches Magnesium Hydroxide (Milk Of Magnesia 30 Ml Oral.Susp) 30 ml PO DAILY PRN PRN Reason: Constipation Melatonin (Melatonin 3 Mg Tablet) 6 mg PO BEDTIME PRN PRN Reason: Insomnia Metformin HCl (Metformin Hcl 500 Mg Tablet) 500 mg PO BIDWM [facility] Last Admin: 01/17/25 17:14 Dose: 500 mg Methocarbamol (Methocarbamol 750 Mg Tablet) 750 mg PO Q8H PRN PRN Reason: myalgia Multivitamins/Vitamin C (Multivitamin Tablet) 1 tab PO DAILY [facility] Last Admin: 01/17/25 09:12 Dose: 1 tab Naloxone HCl (Naloxone Hcl Nasal 4 Mg [place]) 4 mg NOSTRILALT Q2M PRN PRN Reason: sx of opiate OD, Max 5 doses Nicotine (Nicotine 21 Mg Patch.Td24) 21 mg TRANSDERMA DAILY PRN PRN Reason: smoking cessation Nicotine Polacrilex (Nicotine Polacrilex 2 Mg Gum) 4 mg BUCCAL Q2H PRN PRN Reason: Nicotine Cravings Olanzapine (Olanzapine 5 Mg Tablet) 5 mg PO TID PRN PRN Reason: agitation Ondansetron HCl (Ondansetron Odt 4 Mg Tab.Rapdis) 4 mg TRANSLINGU Q6H PRN PRN Reason: Nausea and Vomiting Prazosin HCl (Prazosin Hcl 1 Mg Capsule) 2 mg PO BEDTIME [facility]; Protocol Last Admin: 01/17/25 22:07 Dose: 2 mg Risperidone (Risperidone 2 Mg Tablet) 4 mg PO BEDTIME [facility] Last Admin: 01/17/25 22:07 Dose: 4 mg Senna (Sennosides 8.6 Mg Tablet) 8.6 mg PO BID PRN PRN Reason: Constipation Thiamine HCl (Thiamine Hcl 100 Mg Tablet) 100 mg PO DAILY [facility] Last Admin: 01/17/25 09:16 Dose: 100 mg Topiramate (Topiramate 25 Mg Tablet) 25 mg PO DAILY [facility] Last Admin: 01/17/25 09:12 Dose: 25 mg Trazodone HCl (Trazodone Hcl 50 Mg Tablet) 50 mg PO BEDTIME MRX1 PRN PRN Reason: Insomnia Last Admin: 01/12/25 21:10 Dose: 50 mg Trazodone HCl (Trazodone Hcl 50 Mg Tablet) 50 mg PO BEDTIME [facility] Last Admin: 01/17/25 22:07 Dose: 50 mg Allergies Allergies Allergy/AdvReac Type Severity Reaction Status Date / Time No Known Allergies Allergy Verified 01/07/25 10:37 Assessment & Plan Assessment & Plan (1) Schizoaffective disorder, depressive type: Status: Acute Code(s): F25.1 - Schizoaffective disorder, depressive type (2) PTSD (post-traumatic stress disorder): Status: Acute Code(s): F43.10 - Post-traumatic stress disorder, unspecified (3) Cocaine use disorder: Status: Acute Code(s): F14.10 - Cocaine abuse, uncomplicated (4) Cellulitis and abscess of hand: Status: Acute Code(s): L03.119 - Cellulitis of unspecified part of limb; L02.519 - Cutaneous abscess of unspecified hand (5) Diabetes: Status: Acute Code(s): E11.9 - Type 2 diabetes mellitus without complications Plan Patient is a 44-year-old male with history of schizoaffective disorder?, PTSD, cocaine use disorder who was 1st admitted to [facility] for SI but then transferred to [place] [facility] floor for cellulitis of his right thumb; patient remained with SI while on the medical floor and now admitted to [place] [facility] unit. Patient reports that he was at a [facility] and sober for over a month; during this time his mood was way better and AH only minimal. He completed the program. While still enrolled and waiting for a Custodial house to become available, he impulsively decided to discharge. Patient reports he relapsed using crack cocaine around the clock for 4 days; he started feeling depressed and worthless and AH saying negative things increased; patient developed SI with a plan to hang himself. Instead he self presented to the emergency room and was admitted to [facility]. Patient reports that on the medical floor he remained with SI and has SI now though it is lessening. Feels that current regimen of Wellbutrin and risperidone are helpful if combined with sobriety. -Patient denies alcohol opiate abuse Formulation/clinical reasoning: meets criteria for Schizoaffective disorder, depressed. Currently with SI, though waning; pt wants treatment and to return to aftercare [facility]. Hospital course: 01/14 pt doing a little better; SI, AH lessening. Keeping to himself. 01/15 pt reports he's good...getting better. Says SI continues to lessen and AH now only comes and goes and also lessening. Pt reports sleeping well and thumb good. Reviewed medications and pt is open to increasing Wellbutrin but agrees to wait another day. Pt shared eagerness to get to outpt program [facility]; discussed court on 01/20 and asked SW to get in touch with his traditional chinese herbalist. 01/16 pt reports feeling improved. Continue current regime. PLAN: CV q15 min Continue Wellbutrin XL 300mg daily Conitnue Risperdal 3mg daily Augmentin for a total of 14 days Right thumb cellulitis status post I&D for abscess Daily wound dressings with antibiotic ointment, gauze, Kelli, Coban, -consult wound nurse, and occupational therapy, follow up with Orthopedic surgery outpatient Dr. Marcela Vargas 01/17/25 - feels improved tolerating medications looking to future re dc and trial of css again- he hopes 01/18 25- [facility] Patient educated on: therapeutic strategies Informed Consent: understands Reason for continued inpatient stay Substantial Risk for: rapid decompensation Time Spent With Patient Time: Total time managing care of this patient today ____ minutes.
[2025-01-18] MEDS: Amoxicillin/Potassium Clav 875 MG TABLET PO ×2 (08:26→21:04)
[2025-01-18] MEDS: Multivitamin TABLET 1 TAB PO (08:26)
[2025-01-18] MEDS: Topiramate 25 MG TABLET PO (08:26)
[2025-01-18] MEDS: buPROPion HCl XL 300 MG TAB.ER.24H PO (08:26)
[2025-01-18] MEDS: Thiamine HCL 100 MG TABLET PO (08:26)
[2025-01-18] MEDS: metFORMIN HCl 500 MG TABLET PO ×2 (08:26→16:53)
[2025-01-18] MEDS: Folic Acid 1 MG TABLET PO (08:26)
[2025-01-18 20:00] VITALS: BP 124/59; PULSE 98; TEMP 36.6; O2SAT 98
[2025-01-18 21:03] VITALS: BP 124/59
[2025-01-18] MEDS: Prazosin HCL 1 MG CAPSULE 2 MG PO (21:03)
[2025-01-18] MEDS: risperiDONE 2 MG TABLET 4 MG PO (21:03)
[2025-01-18] MEDS: traZODone HCL 50 MG TABLET PO (21:04)
[2025-01-19 08:00] VITALS: BP 104/58; PULSE 82; RESP 16; TEMP 36.9; O2SAT 95
[2025-01-19] MEDS: metFORMIN HCl 500 MG TABLET PO (08:48)
[2025-01-19] MEDS: Topiramate 25 MG TABLET PO (08:48)
[2025-01-19] MEDS: Amoxicillin/Potassium Clav 875 MG TABLET PO (08:49)
[2025-01-19] MEDS: Folic Acid 1 MG TABLET PO (08:49)
[2025-01-19] MEDS: Thiamine HCL 100 MG TABLET PO (08:49)
[2025-01-19] MEDS: Multivitamin TABLET 1 TAB PO (08:49)
[2025-01-19] MEDS: buPROPion HCl XL 300 MG TAB.ER.24H PO (08:49)
--- NOTE | 2025-01-19 17:23 | P.PNPSI_ITS ---
Subjective Subjective Reason For Visit: depression/SI Diagnostics Vital Signs (24Hr): Vital Signs - 24 hr 01/18/25 20:00 01/18/25 21:03 01/19/25 08:00 Temperature 97.9 F 98.4 F Pulse Rate 98 82 Respiratory Rate 16 Blood Pressure 124/59 L 124/59 L 104/58 L Pulse Oximetry 98 95 Oxygen Delivery Method Room Air BMI result Body Mass Index 31.2 Labs 01/13/25 08:25 Medications Allergies Allergies Allergy/AdvReac Type Severity Reaction Status Date / Time No Known Allergies Allergy Verified 01/07/25 10:37 Assessment & Plan Assessment & Plan (1) Schizoaffective disorder, depressive type: Status: Acute Code(s): F25.1 - Schizoaffective disorder, depressive type (2) PTSD (post-traumatic stress disorder): Status: Acute Code(s): F43.10 - Post-traumatic stress disorder, unspecified (3) Cocaine use disorder: Status: Acute Code(s): F14.10 - Cocaine abuse, uncomplicated (4) Cellulitis and abscess of hand: Status: Acute Code(s): L03.119 - Cellulitis of unspecified part of limb; L02.519 - Cutaneous abscess of unspecified hand (5) Diabetes: Status: Acute Code(s): E11.9 - Type 2 diabetes mellitus without complications Plan Patient is a 44-year-old male with history of schizoaffective disorder?, PTSD, cocaine use disorder who was 1st admitted to [facility] for SI but then transferred to [place] [facility] floor for cellulitis of his right thumb; patient remained with SI while on the medical floor and now admitted to [place] psychiatric unit. Patient reports that he was at a [facility] and sober for over a month; during this time his mood was way better and AH only minimal. He completed the program. While still enrolled and waiting for a [place] house to become available, he impulsively decided to discharge. Patient reports he relapsed using crack cocaine around the clock for 4 days; he started feeling depressed and worthless and AH saying negative things increased; patient developed SI with a plan to hang himself. Instead he self presented to the emergency room and was admitted to [facility]. Patient reports that on the medical floor he remained with SI and has SI now though it is lessening. Feels that current regimen of Wellbutrin and risperidone are helpful if combined with sobriety. -Patient denies alcohol opiate abuse Formulation/clinical reasoning: meets criteria for Schizoaffective disorder, depressed. Currently with SI, though waning; pt wants treatment and to return to aftercare [facility]. Hospital course: 01/14 pt doing a little better; SI, AH lessening. Keeping to himself. 01/15 pt reports he's good...getting better. Says SI continues to lessen and AH now only comes and goes and also lessening. Pt reports sleeping well and thumb good. Reviewed medications and pt is open to increasing Wellbutrin but agrees to wait another day. Pt shared eagerness to get to outpt program [facility]; discussed court on 01/20 and asked SW to get in touch with his data warehouse specialist. 01/16 pt reports feeling improved. Continue current regime. PLAN: CV q15 min Continue Wellbutrin XL 300mg daily Conitnue Risperdal 3mg daily Augmentin for a total of 14 days Right thumb cellulitis status post I&D for abscess Daily wound dressings with antibiotic ointment, gauze, Kelli, Coban, -consult wound nurse, and occupational therapy, follow up with Orthopedic surgery outpatient Dr. Marcela Vargas 01/17/25 - feels improved tolerating medications looking to future re dc and trial of css again- he hopes 01/18 25- [facility] Time Spent With Patient Time: Total time managing care of this patient today ____ minutes.
--- NOTE | 2025-01-19 17:23 | PM.PSYDC ---
DS: Providers Provider Date of admission: 01/12/25 13:22 Primary care physician: Unknown Physician DS: Diagnosis Discharge Diagnosis (1) Schizoaffective disorder, depressive type: Status: Acute (2) PTSD (post-traumatic stress disorder): Status: Acute (3) Cocaine use disorder: Status: Acute (4) Cellulitis and abscess of hand: Status: Acute (5) Diabetes: Status: Acute DS: Medications Discharge Medications Home Medications: Home Medications ?Medication ?Instructions ?Recorded ?Confirmed acetaminophen 325 mg tablet 650 mg PO Q4H PRN Pain 01/07/25 01/12/25 Previous Rx's ?Medication ?Instructions ?Recorded amoxicillin 875 mg-potassium 1 tab PO Q12H #25 tabs 01/19/25 clavulanate 125 mg tablet bupropion HCl 300 mg 24 hr tablet, 300 mg PO DAILY #30 tabs 01/19/25 extended release docusate sodium 100 mg capsule 100 mg PO BID #60 caps 01/19/25 folic acid 1 mg tablet 1 mg PO DAILY #30 tabs 01/19/25 melatonin 3 mg tablet 6 mg (2 x 3 mg) PO BEDTIME PRN 01/19/25 Insomnia #60 tabs metformin 500 mg tablet 500 mg PO BID #60 tabs 01/19/25 methocarbamol 750 mg tablet 750 mg PO Q8H PRN MYALGIAS #24 tabs 01/19/25 multivitamin 1 tab PO DAILY #30 tabs 01/19/25 naloxone 4 mg/actuation nasal spray 4 mg intranasal Q2M PRN S/SX OF 01/19/25 OPIATE OVERDOSE, MAX 5 DOSES. CALL #1 ea prazosin 2 mg capsule 2 mg PO BEDTIME #30 caps 01/19/25 risperidone 4 mg tablet 4 mg PO BEDTIME #30 tabs 01/19/25 thiamine HCl (vitamin B1) 100 mg 100 mg PO DAILY #30 tabs 01/19/25 tablet topiramate 25 mg tablet 25 mg PO DAILY #30 tabs 01/19/25 trazodone 50 mg tablet 50 mg PO BEDTIME PRN Insomnia #30 01/19/25 tabs Data Data Completed and Pending Completed studies during hospitalization [Text1]: 01/13/25 01/13/25 01/13/25 08:25 08:25 08:25 Sodium 138 Potassium 4.5 D Chloride 107 Carbon Dioxide 25 Anion Gap 11 L BUN 10 Creatinine 0.78 0.78 Estim Creat Clear Calc 131.3 131.3 Estimated GFR > 60 Random Glucose Estimat Average Glucose Hemoglobin A1c % Calcium Total Bilirubin AST ALT Alkaline Phosphatase Total Protein Albumin Triglycerides Cholesterol LDL Cholesterol, Calc HDL Cholesterol TSH 01/13/25 08:25 Sodium Potassium Chloride Carbon Dioxide Anion Gap BUN Creatinine Estim Creat Clear Calc Estimated GFR > 60 Random Glucose 111 Estimat Average Glucose 105 Hemoglobin A1c % 5.3 Calcium 9.0 Total Bilirubin 0.3 AST 32 ALT 62 H Alkaline Phosphatase 57 Total Protein 6.8 Albumin 4.0 Triglycerides 188 H Cholesterol 201 H LDL Cholesterol, Calc 123 H HDL Cholesterol 41 TSH 2.26 DS: Summary Time Spent with Patient Time attestation: Total time managing care of this patient today ____ minutes. Discharge Plan Discharge Anticipated Discharge Date/Time: 01/19/25 10:00 Patient Disposition: Xfer Other Discharge Diagnosis: Schizoaffective Disorder, Depressed PTSD Cocaine Use Disorder Diabetes Referrals: Physician,Unknown J [Primary Care Provider] - 1 Week Discharge Medications: Continued acetaminophen 325 mg Tablet 650 mg PO Q4H PRN (Reason: Pain) multivitamin Tablet 1 tab PO DAILY Qty: 30 0RF metformin 500 mg Tablet 500 mg PO BID Qty: 60 0RF trazodone 50 mg Tablet 50 mg PO BEDTIME PRN (Reason: Insomnia) Qty: 30 0RF Rx Instructions: may repeat in 2 hours if still awake do not give initial dose prior to 1999 or after 0 risperidone 4 mg Tablet 4 mg PO BEDTIME Qty: 30 0RF thiamine HCl (vitamin B1) 100 mg Tablet 100 mg PO DAILY Qty: 30 0RF topiramate 25 mg Tablet 25 mg PO DAILY Qty: 30 0RF melatonin 3 mg Tablet 6 mg PO BEDTIME PRN (Reason: Insomnia) Qty: 60 0RF methocarbamol 750 mg Tablet 750 mg PO Q8H PRN (Reason: MYALGIAS) Qty: 24 0RF docusate sodium 100 mg Capsule 100 mg PO BID Qty: 60 0RF folic acid 1 mg Tablet 1 mg PO DAILY Qty: 30 0RF prazosin 2 mg Capsule 2 mg PO BEDTIME Qty: 30 0RF amoxicillin-pot clavulanate 875-125 mg Tablet 1 tab PO Q12H Qty: 25 0RF bupropion HCl 300 mg Tablet Extended Release 24 Hr 300 mg PO DAILY Qty: 30 0RF naloxone 4 mg/actuation [place],Non-Aerosol 4 mg INTRANASAL Q2M PRN (Reason: S/SX OF OPIATE OVERDOSE, MAX 5 DOSES. CALL MD) Qty: 1 0RF Rx Instructions: spray 1 dose into ONE nostril; alternate nostrils w each dose until help arrives Discontinued sennosides [senna] 8.6 mg Tablet 8.6 mg PO BID PRN (Reason: second line constipation) quetiapine 300 mg Tablet 300 mg PO BEDTIME nicotine (polacrilex) 2 mg Gum 2 mg BUCCAL Q2H PRN (Reason: Nicotine Cravings) Rx Instructions: chew and tuck into mucosal area for up to 30 minutes guaifenesin 100 mg/5 mL Liquid 200 mg PO Q4H PRN (Reason: Cough) Rx Instructions: SF syrup ibuprofen 400 mg Tablet 400 mg PO Q8H PRN (Reason: body-ache, toothache ) nicotine 21 mg/24 hr Patch 24 Hour 1 patch TRANSDERMAL DAILY PRN (Reason: NICTOCINE WITHDRAWAL) Rx Instructions: Remove at bedtime > 15 cigarettes daily calcium carbonate 500 mg calcium (1,250 mg) Tablet,Chewable 500 mg PO Q4H PRN (Reason: Heartburn) ondansetron 4 mg Tablet,Disintegrating 4 mg PO Q6H PRN (Reason: Nausea And Vomiting) hydroxyzine pamoate 25 mg Capsule 25 mg PO Q6H PRN (Reason: Anxiety) Discharge Orders: Discharge Order (Routine); Ordered 01/19/25 Ordered By: Marlene Cullen Diet: Advance to usual diet Activity on Discharge: As tolerated Stand Alone Forms: Patient Portal Discharge page Print Language: Greenlandic Care Plan Goals: Mood and Behavioral Stabilization Abstinence from substances Health Concerns: Mood and Behavioral Stabilization Abstinence from substances Plan of Treatment: Take medications as directed Attend scheduled appointments Participate in Clinical Group [facility] Assessment: Pt has insight and demonstrates good judgment in terms of wanting to pursue treatment. Pt has a safety plan that includes presenting to the closest ER or calling 911 if feeling unsafe. Discharge Date/Time: 01/19/25 12:30
== END 2025-01-19 12:30 | disposition other institution (70) | DRG 750 ==
PROVIDERS: Admitting Provider Psychiatry & Neurology Psychiatry; Visit Provider Psychiatry & Neurology Psychiatry
DX: F25.1 Schizoaffective disorder, depressive type (principal); R45.851 Suicidal ideations; F14.10 Cocaine abuse, uncomplicated; L03.011 Cellulitis of right finger; F43.10 Post-traumatic stress disorder, unspecified; Z59.02 Unsheltered homelessness; Z79.84 Long term (current) use of oral hypoglycemic drugs; Z79.899 Other long term (current) drug therapy
CPT/HCPCS: 36415; 80053; 80061; 82565; 83036; 84443

== ENCOUNTER → 2025-01-12 13:22 | Outpatient (BNV) | payer OTHER, SELFPAY | PROVIDERS: Admitting Provider Psychiatry & Neurology Psychiatry; Visit Provider Psychiatry & Neurology Psychiatry | DX: F25.1 Schizoaffective disorder, depressive type (principal); F14.10 Cocaine abuse, uncomplicated; F43.11 Post-traumatic stress disorder, acute; L03.119 Cellulitis of unspecified part of limb; L02.519 Cutaneous abscess of unspecified hand; E11.9 Type 2 diabetes mellitus without complications | CPT/HCPCS: 90792; 99231; 99232; 99238 ==

== ENCOUNTER 2025-01-13 10:20 | Outpatient (REF) | payer OTHER, SELFPAY ==
--- OUTSIDE RECORDS SUMMARY | 2025-01-14 11:38 | XMS_ITS | Encounter Summary ---
Author Organization [facility] Address [address] [place] [address] Care Team Providers Care Director Operations Broadcast Name Role Phone Kimberly Tovar CORBIN Primary Care Provider Reason for Visit * Reason Comments Medication Management Encounter Details Date Type Department Care Team ([facility] st Contact Info) Description 11/17/2019 / Visits [facility] [address] [place] [phone] Catina Steel APRN [address] [place] [address] Social History Tobacco Use Types Packs/Day Years [...] documented as of this encounter Care Teams Director Operations Broadcast Relationship Specialty Start Date End Date Kimberly Tovar FNP [facility] [place] [address] PCP - General Internal Medicine 05/25/20 documented as of this encounter
--- OUTSIDE RECORDS SUMMARY | 2025-01-14 11:38 | XMS_ITS | Clinical Summary ---
Author Organization [facility] Address [address] [place] [address] Care Team Providers Care Cath Lab Manager Name Role Phone Kimberly Tovar [facility] Primary Care Provider [phone] Source Comments PLEASE NOTE, if this patient [...] Problem Noted Date Diagnosed Date Cocaine abuse ([facility]) 09/28/2022 Cannabis abuse 09/28/2022 Prediabetes 11/22/2020 Hepatic steatosis 01/01/2020 Overview (01/01/2020): 12/17/2019 Liver US Bipolar 1 disorder ([facility]) 11/07/2019 Hepatitis C antibody test positive 11/07/2019 Moderate episode of recurren t major depressive disorder ([facility]) 07/12/2019 HISTORY OF SUICIDAL IDEATION 01/11/2019 Overview (01/20/2019): 01/08/19 [facility]ation --plan take all his medication: crisis called in [facility] ER suicidal--not meeting inpatient req--sent [facility] Hyperglyceridemia 01/20/2016 PTSD (post-traumatic stress disorder) 01/20/2016 Anxiety and depression 01/20/2016 Overview (09/23/2018): Per Dr Bustos 03/16 --This is Dr. Bustos writing courtesy of [facility]. ? I reviewed the records. ?? Looks [...] both Seroquel and Wellbutrin H/O cocaine abuse ([facility]) 01/20/2016 Immunizations Immunization Administration Dates Next Due [...] history exists Syphilis Screening 04/24/2024 04/24/2023, 11/25/2020 [id number] ( season) 2024 023 Alcohol and Drug [...] HEPATITIS C ANTIBODY REACTIVE( A) NON-REACT PUJA [employer] [facility] Comment: Based on this result, the sample will be tested for HCV RNA by a Nucleic Acid Amplification Test (NAAT) to determine if the patient has a current active infection. Blood Blood / Unknown 04/24/2023 2 :44 PM EDT 04/24/2023 2:45 PM EDT Narrative [facility] - 04/27/2023 10:46 PM EDT FASTING:NO More Fink NP LAB - BLOOD DRAW Edited Result - Final [facility] [address] [address], [facility] [address] [phone] * HIV 1/2 AG & AB W/RFLX (4TH GEN) (04/24/2023 2:44 PM EDT) HIV AG/AB, 4TH GEN NON-REAC TIVE NON-REAC TIVE [employer] [facility] Comment: HIV-1 antigen and HIV-1/HIV-2 antibodies [...] ?? For additional information please refer to http://education.Certain/faq/NYV231 (This link is being provided for informational/ educational purposes only.) The performance of this assay has not been clinically validated in patients less than 2 years old. Blood Blood / Unknown 04/24/2023 2 :44 PM EDT 04/24/2023 2:45 PM EDT Narrative [employer] [facility] - 04/27/2023 10:46 PM EDT FASTING:NO us More Fink NP LAB - BLOOD DRAW Final Result [facility] [address] [id number], [facility] [address] [address] * (ABNORMAL) LIPIDS W RFLX TO DIRECT LDL (04/24/2023 2:44 PM EDT) Pathologist [facility] CHOLESTEROL, TOTAL 219(H) <200 mg/dL [facility] HDL CHOLESTEROL 45 > OR = 40 mg/dL [facility] TRIGLYCERIDES 191(H) <150 mg/dL [facility] LDL-CHOLESTEROL 141(H) 99 mg/dL (calc) [facility] Comment: Reference range: <100 Desirable range <100 mg/dL for primary prevention; ?? <70 mg/dL for patients with CHD or diabetic patients with > or = 2 CHD risk factors. LDL-C is now calculated using the Esteban calculation, which is a validated novel method providing better accuracy than the Friedewald equation in the estimation of LDL-C. Obie GAMBOA et al. JUDI. 2013;310(19): 9359-5487 (http://education.Oceen/faq/JUK376) CHOL/HDLC RATIO 4.9 <5.0 (calc) [employer] [facility] NON-HDL CHOLESTEROL 174(H) <130 mg/dL (calc) [employer] [facility] Comment: For patients with diabetes plus 1 major ASCVD risk factor, treating to a non-HDL-C goal of <100 mg/dL (LDL-C of <70 mg/dL) is considered a therapeutic option. Blood Blood / Unknown 04/24/2023 2 :44 PM EDT 04/24/2023 2:45 PM EDT Narrative [employer] - 04/27/2023 10:46 PM EDT FASTING:NO us More Fink NP LAB - BLOOD DRAW Final Result Performing Organization Address [facility]/ZIP Co de Phone Number [facility] [address] [address], [facility] [address] [phone] * RPR W/RFLX TITER+FTA+CONF (04/24/2023 2:44 PM EDT) RPR (DX) W/REFL TITER AND CONFIRMATORY TESTING NON-REACT PUJA NON-REACT PUJA [facility] Blood Blood / Unknown 04/24/2023 2 :44 PM EDT 04/24/2023 2:45 PM EDT Narrative [employer] - 04/27/2023 10:46 PM EDT FASTING:NO us More Fink NP LAB - BLOOD DRAW Edited Result - Final Per[facility] Organization Address [facility]/ZIP Co de Phone Number [facility] [address] [address], [facility] [address] [address] * (ABNORMAL) COMPREHENSIVE METABOLIC PANEL (04/24/2023 2:44 PM EDT) GLUCOSE 98 65 - 139 mg/dL [facility] Comment: ?Non-fasting reference interval UREA NITROGEN (BUN) 15 7 - 25 mg/dL [facility] CREATININE (blood) 0.94 0.60 - 1.29 mg/dL [facility] EGFR 103 > OR = 60 mL/min/1. 73m2 [facility] BUN/CREATININE RATIO SEE NOTE: [facility] Comment: ?? Not Reported: BUN and Creatinine are within ?? reference range. ? SODIUM 141 135 - 146 mmol/L [facility] POTASSIUM 4.4 3.5 - 5.3 mmol/L [facility] CHLORIDE 103 98 - 110 mmol/L [facility] CARBON DIOXIDE 30 20 - 32 mmol/L [facility] CALCIUM 9.6 8.6 - 10.3 mg/dL [facility] PROTEIN, TOTAL 7.1 6.1 - 8.1 g/dL [facility] ALBUMIN 4.7 3.6 - 5.1 g/dL [facility] GLOBULIN 2.4 1.9 - 3.7 g/dL (calc) [facility] ALBUMIN/GLOBULI N RATIO 2.0 1.0 - 2.5 (calc) [facility] BILIRUBIN, TOTAL 0.4 0.2 - 1.2 mg/dL [facility] ALKALINE PHOSPHATASE 96 36 - 130 U/L [facility] AST 27 10 - 40 U/L [facility] ALT 53(H) 9 - 46 U/L [facility] Blood Blood / Unknown 04/24/2023 2 :44 PM EDT 04/24/2023 2:45 PM EDT Narrative [employer] - 04/27/2023 10:46 PM EDT FASTING:NO More Fink NP LAB - BLOOD DRAW Edited Result - Final [facility] [address] [address], [facility] [address] [address] from Last 3 Months or Most Recently Relevant to Health Maintenance Insurance [facility] [address] A[employer] Care Teams Cath Lab Manager Relationship Specialty Start Date End Date Kimberly Tovar FNP [address] [place] [address] PCP - General Internal Medicine 05/25/20
== END 2025-01-13 10:21 | disposition home or self-care (01) ==
LOC: HO.HOSX 10:20
PROVIDERS: Visit Provider Orthopaedic Surgery
DX: Z13.89 Encounter for screening for other disorder (principal)